=== PATIENT | female | born 1945 | race Caucasian/White ===

== ENCOUNTER → 2019-05-28 11:38 | Outpatient (BNVA) | payer MEDICARE, OTHER, SELFPAY | PROVIDERS: Family Provider Nurse Practitioner; PCP Nurse Practitioner; Visit Provider Nurse Practitioner Family | DX: M10.9 Gout, unspecified (principal) | CPT/HCPCS: 80053; 84550; 85025 ==

== ENCOUNTER 2019-06-23 07:54 | Outpatient (CLI) | payer MEDICARE, OTHER, SELFPAY ==
--- NOTE | 2019-06-23 08:00 | CT_ITS ---
WS: [id number] CT NECK TECHNIQUE: Contrast-enhanced CT of the neck with coronal and sagittal reformatted images. CLINICAL INFORMATION: OTALGIA R EAR/ATYPICAL FACE PAIN DLP: 584.[address] scans at [facility] use at least one of these dose optimization techniques: automat ed exposure control; mA and/or kV adjustment per patient size (includes targeted exams where dose is matched to clinical indication); or iterative reconstruction. FINDINGS: Parotid glands are normal in appearance. Normal submandibular glands. Fatty lesion right submandibula r gland and likely a small lipoma measuring 5 mm. Normal posterior nasopharynx. Normal parapharyngeal fat. Normal vallecula and piriform sinuses. No evidence of supraglottic or glottic mass. Normal visu alized thyroid gland. No cervical lymphadenopathy.Moderate spondylitic changes cervical spine with prior laminectomy defect s C6-7. Partially visualized venous angioma right parietal lobe. Mastoid air cells and paranasal sinu ses are well aerated. CT/CT neck w con* [id number] IMPRESSION: 1. No evidence of supraglottic or glottic mass. 2. Paranasal sinuses and mastoid air cells are well aerated. 3. No cervical lymphadenopathy. 4. Mild spondylitic changes cervical spine with prior laminectomy defects C6/7 . 5. Incidental venous angioma right parietal lobe.
[2019-06-23] MEDS: iohexol 300 mg/mL 100 mL Btl IV (08:35)
== END 2019-06-23 07:55 | disposition home or self-care (01) ==
PROVIDERS: Family Provider Nurse Practitioner; PCP Nurse Practitioner; Visit Provider Otolaryngology
DX: H92.01 Otalgia, right ear (principal); G50.1 Atypical facial pain; Q28.3 Other malformations of cerebral vessels
CPT/HCPCS: 70491

== ENCOUNTER → 2019-07-03 10:31 | Outpatient (BNVA) | payer MEDICARE, OTHER, SELFPAY | PROVIDERS: Family Provider Nurse Practitioner; PCP Nurse Practitioner; Visit Provider Nurse Practitioner | DX: M10.9 Gout, unspecified (principal); E03.8 Other specified hypothyroidism; E06.3 Autoimmune thyroiditis; I67.9 Cerebrovascular disease, unspecified; R26.89 Other abnormalities of gait and mobility; R82.998 Other abnormal findings in urine | CPT/HCPCS: 80053; 81003; 82607; 84443; 84550; 85025; 87077; 87086; 87186 ==

== ENCOUNTER → 2019-07-09 10:00 | Outpatient (BNVA) | payer MEDICARE, OTHER, SELFPAY | PROVIDERS: Family Provider Nurse Practitioner; PCP Nurse Practitioner; Referring Provider Nurse Practitioner; Visit Provider Specialist | DX: G50.1 Atypical facial pain (principal); R20.0 Anesthesia of skin; F40.240 Claustrophobia | CPT/HCPCS: 82607; 85651; 86140; 99204; 99214 ==

== ENCOUNTER 2019-07-09 11:47 | Outpatient (CLI) | payer MEDICARE, OTHER, SELFPAY ==
[2019-07-09 12:49] LABS: Erythrocyte Sedimentation Rate 12 mm/hr (0-15)
[2019-07-09 13:47] LABS: Vitamin B12 > 2000 pg/mL (232-1245)
[2019-07-09 13:58] LABS: C Reactive Protein 0.8 mg/L (0.0-4.9)
== END 2019-07-09 11:48 | disposition home or self-care (01) ==
LOC: LAB 11:47
PROVIDERS: Family Provider Nurse Practitioner; PCP Nurse Practitioner; Visit Provider Specialist
DX: R20.0 Anesthesia of skin (principal)
CPT/HCPCS: 82607; 85651; 86140

== ENCOUNTER → 2019-07-17 09:50 | Outpatient (BNVA) | payer MEDICARE, OTHER, SELFPAY | PROVIDERS: Family Provider Nurse Practitioner; PCP Nurse Practitioner; Visit Provider Nurse Practitioner | DX: R39.9 Unspecified symptoms and signs involving the genitourinary system (principal) | CPT/HCPCS: 81003 ==

== ENCOUNTER 2019-07-18 09:24 | Outpatient (CLI) | payer MEDICARE, OTHER, SELFPAY ==
--- NOTE | 2019-07-18 10:15 | CT_ITS ---
WS: [id number] CT NECK WITHOUT CONTRAST HISTORY: mass in neck TECHNIQUE: Contiguous 5 mm axial images are performed through the neck without intravenous contrast. Sagittal and coronal reformats are also submitted. All CT scans at [facility] use at leas t one of these dose optimization techniques: automated exposure control; mA and/or kV adjustment per patient size (includes targeted exams where dose is matched to clinical indication); or iterative rec onstruction. CONTRAST: CONTRAST: None DLP: 1719.51 mGycm COMPARISON: 06/23/2019 Nasopharynx, oropharynx, hypopharynx and larynx are unremarkable. No soft tissue mass identified. Torus tubarius and fossa of Rosenmuller and parapharyngeal fat are normal. No significant lymphadenopathy is identified. Normal unenhanced appearance of the thyroid. Thyroid gland is small caliber. Again noted is the hypoe choic dense lesion measuring 5 mm in the RIGHT submandibular gland. No parotid lesions are identified . Degenerative disc disease and spondylitic changes in the mid cervical spine. No osteoblastic or osteo lytic bone disease. Visualized portions of the skull base demonstrate no abnormalities. Orbits and globes are within norm al limits. No soft tissue masses. Visualized paranasal sinuses and mastoid air cells are normal. Lung apices are clear. CT/CT neck wo con [id number] IMPRESSION: 1. This examination was performed without IV contrast. This limits evaluation for subtle lesions. No laryngeal mass identified. 2. Stable 5 mm hypodense lesion in the RIGHT submandibular gland which may be a benign lipoma. Described on 06/23/2019 also. 3. No adenopathy.
--- NOTE | 2019-07-18 11:45 | MR_ITS ---
WS: [id number] MRI HEAD WITHOUT CONTRAST WITH ATTENTION TO THE INTERNAL AUDITORY CANALS TECHNIQUE: Sagittal T1, T2 axial, T2 axial flair, axial susceptibility weighted imaging, axial diffus ion weighted images, and coronal T2 images were obtained. Pre and T1 axial T1 coronal images. ADC donna ges. Coronal fiesta imaging. Attention to the IACs. CLINICAL INFORMATION: ear pain COMPARISON: MRI August 25, 2016 FINDINGS: No evidence of restricted diffusion to suggest acute ischemia. Ventricular system and basal cisterns are patent. Mild small vessel changes with moderate parenchymal volume loss relatively stable since 2 017. Small vessel changes in the abdulaziz. Normal posterior fossa. Normal vascular flow voids at the skul l base. No extra-axial fluid collections. No evidence of mass or mass effect. Paranasal sinuses and mastoid air cells well aerated. No hemosiderin on the susceptibility weighted i mages. Noncontrast IACs are normal in appearance. No evidence of IAC mass or CP angle mass. Seventh a nd eighth proximal cranial nerves appear normal. Normal trigeminal nerve root entry zones. Cavernous sinuses appear normal. Normal optic chiasm and pituitary infundibulum. Moderate symmetric atrophy involving the temporal lob es and hippocampal formations. No other significant findings. MR/MR iac's wo con [id number] IMPRESSION: 1. No evidence of restricted diffusion to suggest acute ischemia. 2. Mild small vessel changes with moderate parenchymal volume loss appears sta ble since 2016 3. Moderate symmetric atrophy involving the temporal lobes and hippocampal for mations. 4. Noncontrast IACs appear normal. Proximal 7th and 8th cranial nerves appear normal. 5. Trigeminal nerve root entry zones appear unremarkable. 6. Paranasal sinuses and mastoid air cells appear well aerated. 7. No significant interval changes since 2016.
== END 2019-07-18 09:25 | disposition home or self-care (01) ==
LOC: RADWPI 09:29
PROVIDERS: Family Provider Nurse Practitioner; PCP Nurse Practitioner; Visit Provider Specialist
DX: G31.89 Other specified degenerative diseases of nervous system (principal); R22.1 Localized swelling, mass and lump, neck; R51 Headache; H92.09 Otalgia, unspecified ear
CPT/HCPCS: 70490; 70551

== ENCOUNTER → 2019-10-08 10:48 | Outpatient (BNVA) | payer MEDICARE, OTHER, SELFPAY | PROVIDERS: Family Provider Nurse Practitioner; PCP Nurse Practitioner; Visit Provider Specialist | DX: G50.1 Atypical facial pain (principal); R26.89 Other abnormalities of gait and mobility; G43.019 Migraine without aura, intractable, without status migrainosus | CPT/HCPCS: 99214 ==

== ENCOUNTER → 2019-11-26 16:46 | Outpatient (BNVA) | payer MEDICARE, OTHER, SELFPAY | PROVIDERS: Family Provider Nurse Practitioner; PCP Nurse Practitioner; Visit Provider Nurse Practitioner | DX: E03.8 Other specified hypothyroidism (principal); E06.3 Autoimmune thyroiditis | CPT/HCPCS: 80053; 80061; 82607; 84439; 84443; 84481 ==

== ENCOUNTER → 2020-01-07 09:49 | Outpatient (BNVA) | payer MEDICARE, OTHER, SELFPAY | PROVIDERS: Family Provider Nurse Practitioner; PCP Nurse Practitioner; Visit Provider Specialist | DX: G43.019 Migraine without aura, intractable, without status migrainosus (principal); G50.1 Atypical facial pain | CPT/HCPCS: 99213 ==

== ENCOUNTER → 2020-01-20 10:32 | Outpatient (BNVA) | payer MEDICARE, OTHER, SELFPAY | PROVIDERS: Family Provider Nurse Practitioner; PCP Nurse Practitioner; Visit Provider Nurse Practitioner | DX: I10 Essential (primary) hypertension (principal); E78.2 Mixed hyperlipidemia; Z68.24 Body mass index [BMI] 24.0-24.9, adult | CPT/HCPCS: 81000 ==

== ENCOUNTER 2020-02-24 09:57 | Outpatient (CLI) | payer MEDICARE, OTHER, SELFPAY ==
--- NOTE | 2020-02-24 10:12 | CT_ITS ---
WS: [id number] CT NECK TECHNIQUE: Contrast-enhanced CT of the neck with coronal and sagittal reformatted images. CLINICAL INFORMATION: LOCALIZED SWELLING, MASS AND LUMP, NECK COMPARISON: CT July 18, 2019 DLP: 1582.[address] scans at [facility] use at least one of these dose optimization techniques: automat ed exposure control; mA and/or kV adjustment per patient size (includes targeted exams where dose is matched to clinical indication); or iterative reconstruction. FINDINGS: Palpable marker overlying the right mandible laterally. No evidence of underlying mass or lesion. Nor mal underlying mandible. Beam Cesar artifact from dental hardware degrades images. No abnormalities in this area. Tongue base appears normal considering dental artifact. Normal posterior nasopharynx. Normal palatine tonsils. Submandibular glands are normal. Small 5 mm low-attenuation lesion right submandibular glan d unchanged likely represents a small lipoma. Left submandibular gland is normal. Normal parotid glands. Normal parapharyngeal fat. No evidence of supraglottic or glottic mass. Normal subglottic airway. Paranasal sinuses and mastoid air cells are well aerated. Incidental venous angio ma right parietal occipital junction unchanged. No cervical lymphadenopathy. Moderate spondylitic changes cervical spine worse at C5-C6 due to disc o steophyte complex. Laminectomy defects C6-7. Lung apices are well aerated. CT/CT neck w con* [id number] IMPRESSION: 1. Palpable marker overlying the right mandible. No evidence of underlying sub cutaneous mass or lesion. 2. 5 mm low-attenuation lesion right submandibular gland likely lipoma unchan ged. 3. Salivary glands are otherwise normal.. 4. No cervical lymphadenopathy. 5. Moderate spondylitic changes cervical spine. 6. Stable venous angioma right parietal lobe.
[2020-02-24 11:04] LABS: Blood Urea Nitrogen 17 mg/dL (8-23)
[2020-02-24] MEDS: iohexol 300 mg/mL 100 mL Btl IV (11:11)
== END 2020-02-24 09:58 | disposition home or self-care (01) ==
PROVIDERS: Family Provider Nurse Practitioner; PCP Nurse Practitioner; Visit Provider Specialist
DX: R22.1 Localized swelling, mass and lump, neck (principal); D18.09 Hemangioma of other sites
CPT/HCPCS: 70491; 82565; 84520; Q9967

== ENCOUNTER 2020-03-17 12:36 | Outpatient (CLI) | payer MEDICARE, OTHER, SELFPAY ==
--- NOTE | 2020-03-17 12:47 | MR_ITS ---
WS: [id number] MRI NECK WITH CONTRAST TECHNIQUE: Noncontrast axial T1, axial T2 FSE fat sat, coronal T2 fat sat, coronal T1, coronal T1 fat sat, sagittal T2 fat sat, plus contrast enhanced coronal, sagittal, and axial T1 fat sat images obta ined. CLINICAL INFORMATION: ATYPICAL FACIAL PAIN COMPARISON: Comparison CT neck 02/24 2020 FINDINGS: Parotid glands are normal in appearance. Normal submandibular glands. 5 mm low-attenuation lesion in the right submandibular gland seen on the recent neck CT demonstrates normal parenchymal signal today . No enhancement. This likely represents incidental submandibular cyst or ductal ectasia. No cervical lymphadenopathy. No evidence of supraglottic or glottic mass. Normal vallecula and pirif orm sinuses. Subglottic airway is patent. No cervical lymphadenopathy. Normal posterior nasopharynx. Normal parapharyngeal fat. Posterior fossae is normal. Normal vascular flow voids at the skull base. Mastoid air cells are well aerated. Paranasal sinuses are well aerated. Mild spondylitic changes cervical spine. Spinal canal appears patent. MR/MR orbit face neck wo/w* [id number] IMPRESSION: 1. Salivary glands are normal. 2. No evidence of supraglottic or glottic mass. 3. No cervical lymphadenopathy. 4. Paranasal sinuses and mastoid air cells are well aerated. 5. No other significant findings.
== END 2020-03-17 12:37 | disposition home or self-care (01) ==
LOC: RADSHAW 12:42
PROVIDERS: PCP Nurse Practitioner; Visit Provider Specialist
DX: G50.1 Atypical facial pain (principal)
CPT/HCPCS: 70543; A9579

== ENCOUNTER → 2020-03-22 07:49 | Outpatient (BNVA) | payer MEDICARE, OTHER, SELFPAY | PROVIDERS: PCP Nurse Practitioner; Visit Provider Specialist | DX: R29.90 Unspecified symptoms and signs involving the nervous system (principal); G50.1 Atypical facial pain; G43.019 Migraine without aura, intractable, without status migrainosus; I67.9 Cerebrovascular disease, unspecified; G31.84 Mild cognitive impairment of uncertain or unknown etiology; I10 Essential (primary) hypertension | CPT/HCPCS: 99213 ==

== ENCOUNTER → 2020-04-28 09:46 | Outpatient (BNVA) | payer MEDICARE, OTHER, SELFPAY | PROVIDERS: PCP Nurse Practitioner; Visit Provider Podiatrist Foot & Ankle Surgery | DX: M79.673 Pain in unspecified foot (principal); M21.072 Valgus deformity, not elsewhere classified, left ankle | CPT/HCPCS: 73630 ==

== ENCOUNTER → 2020-05-04 15:45 | Outpatient (BNVA) | payer MEDICARE, OTHER, SELFPAY | PROVIDERS: PCP Nurse Practitioner; Visit Provider Nurse Practitioner | DX: E78.2 Mixed hyperlipidemia (principal); E06.3 Autoimmune thyroiditis; M19.90 Unspecified osteoarthritis, unspecified site; I10 Essential (primary) hypertension | CPT/HCPCS: 80053; 80061; 84443 ==

== ENCOUNTER → 2020-07-13 11:09 | Outpatient (BNVA) | payer MEDICARE, OTHER, SELFPAY | PROVIDERS: PCP Nurse Practitioner; Visit Provider Nurse Practitioner | DX: E03.8 Other specified hypothyroidism (principal); E06.3 Autoimmune thyroiditis | CPT/HCPCS: 80053; 84443; 85025 ==

== ENCOUNTER → 2020-09-20 10:50 | Outpatient (BNVA) | payer MEDICARE, OTHER, SELFPAY | PROVIDERS: PCP Nurse Practitioner; Visit Provider Nurse Practitioner | DX: E03.8 Other specified hypothyroidism (principal); E06.3 Autoimmune thyroiditis | CPT/HCPCS: 84443 ==

== ENCOUNTER → 2020-10-14 10:51 | Outpatient (BNVA) | payer MEDICARE, OTHER, SELFPAY | PROVIDERS: PCP Nurse Practitioner; Visit Provider Nurse Practitioner | DX: E55.9 Vitamin D deficiency, unspecified (principal); E06.3 Autoimmune thyroiditis; I10 Essential (primary) hypertension | CPT/HCPCS: 82306; 82607; 84443; 85025 ==

== ENCOUNTER → 2020-12-14 10:26 | Outpatient (BNVA) | payer MEDICARE, OTHER, SELFPAY | PROVIDERS: PCP Nurse Practitioner; Visit Provider Nurse Practitioner | DX: E03.8 Other specified hypothyroidism (principal); E06.3 Autoimmune thyroiditis | CPT/HCPCS: 80053; 84443 ==

== ENCOUNTER → 2021-01-19 09:06 | Outpatient (BNVA) | payer MEDICARE, OTHER, SELFPAY | PROVIDERS: PCP Nurse Practitioner; Visit Provider Nurse Practitioner | DX: E78.2 Mixed hyperlipidemia (principal); M54.5 Low back pain; M54.6 Pain in thoracic spine | CPT/HCPCS: 72072; 72100 ==

== ENCOUNTER 2021-01-27 09:40 | Outpatient (CLI) | payer MEDICARE, OTHER, SELFPAY ==
--- NOTE | 2021-01-27 10:00 | CT_ITS ---
WS: [id number] CT LUMBAR SPINE TECHNIQUE: Noncontrast CT of the lumbar spine with coronal and sagittal reformatted images. CLINICAL INFORMATION: S32.000A - Wedge compression fracture of unspecified lumb... COMPARISON: MRI and radiograph January 19, 2021 DLP: 2000.[address] scans at [facility] use at least one of these dose optimization techniques: automated e xposure control; mA and/or kV adjustment per patient size (includes targeted exams where dose is matc hed to clinical indication); or iterative reconstruction. FINDINGS: Mild lumbar curve. Mild compression superior endplate L3 with visualized fracture clefts consistent w ith acute compression unchanged since the recent radiograph. Loss of approximately 20% vertebral body height. No retropulsion. Lumbar curve convex left. No high-grade central canal stenosis. L1-L2: Normal L2-L3: Mild annular bulging with slight effacement of ventral thecal sac. Slight narrowing of the sub articular recess. Spinal canal and foramen are patent. Mild facet arthropathy L3-L4: Mild annular bulging with slight effacement of the ventral thecal sac. Moderate facet arthropa thy. Spinal canal and foramen are patent. L4-L5: Annular bulging with a shallow central protrusion. Moderate central canal stenosis and imping ement traversing L5 nerve roots. Foramen are patent. Moderate facet arthropathy with ligamentum flavu m hypertrophy. L5-S1: Mild annular bulging with a tiny shallow central protrusion. Slight effacement of ventral thec al sac. Foramen are patent. Moderate to advanced facet arthropathy. 7 mm left adrenal adenoma. CT/CT lumbar spine wo con* [id number] IMPRESSION: 1. Acute compression superior endplate L3 with loss of approximately 20% verte bral body height. No significant retropulsion. 2. Moderate central canal stenosis L4-5 due to disc bulging with facet arthrop athy and ligamentum flavum flavum hypertrophy. Impingement traversing L5 nerve roots bilaterally. 3. Tiny shallow central protrusion L5-S1 with slight effacement of ventral the lucille sac. 4. Moderate to advanced facet arthropathy L3-L5.
== END 2021-01-27 09:41 | disposition home or self-care (01) ==
PROVIDERS: PCP Nurse Practitioner; Visit Provider Nurse Practitioner
DX: S32.039A Unspecified fracture of third lumbar vertebra, initial encounter for closed fracture (principal); X58.XXXA Exposure to other specified factors, initial encounter; M48.061 Spinal stenosis, lumbar region without neurogenic claudication; M51.27 Other intervertebral disc displacement, lumbosacral region; M47.816 Spondylosis without myelopathy or radiculopathy, lumbar region
CPT/HCPCS: 72131

== ENCOUNTER → 2021-02-03 13:34 | Outpatient (BNVA) | payer MEDICARE, OTHER, SELFPAY | PROVIDERS: PCP Nurse Practitioner; Referring Provider Nurse Practitioner; Visit Provider Orthopaedic Surgery | DX: M25.552 Pain in left hip (principal); M25.551 Pain in right hip | CPT/HCPCS: 73502 ==

== ENCOUNTER → 2021-02-09 10:05 | Outpatient (BNVA) | payer MEDICARE, OTHER, SELFPAY | PROVIDERS: PCP Nurse Practitioner; Visit Provider Nurse Practitioner | DX: E03.8 Other specified hypothyroidism (principal); E06.3 Autoimmune thyroiditis | CPT/HCPCS: 80053; 80061; 84443 ==

== ENCOUNTER 2021-02-18 08:10 | Outpatient (CLI) | payer MEDICARE, OTHER, SELFPAY ==
--- NOTE | 2021-02-18 08:45 | MR_ITS ---
WS: [id number] MRI LUMBAR SPINE NONCONTRAST TECHNIQUE: Sagittal T1, T2 and STIR imaging. Axial T1 and T2 imaging. CLINICAL INFORMATION: S32.030A - Wedge compression fracture of third lumbar matteo... COMPARISON: January 27, 2021 FINDINGS: Mild lumbar curve. Acute compression fracture superior endplate L3 with loss of 20% vertebral body he ight. No retropulsion. Diffuse edema in the superior endplate consistent with acute compression. No c entral canal stenosis. L1-L2: Normal. L2-L3: Mild annular bulging with slight effacement of the ventral thecal sac. Slight narrowing of the right subarticular recess. Mild facet arthropathy. Mild left foraminal narrowing. L3-L4: No significant disc bulging. Mild osteophytic ridging. Mild left foraminal narrowing. Compress ion of the superior endplate described above. Moderate facet arthropathy. L4-L5: Mild disc bulging with slight effacement of ventral thecal sac. Mild central canal stenosis wi th slight narrowing of the subarticular recess bilaterally. Moderate facet arthropathy. Ligamentum fl avum flavum hypertrophy. Mild right foraminal narrowing. L5-S1: Mild annular bulging. Spinal canal and foramen are patent. Moderate facet arthropathy. Foramen are patent. Visualized pelvic bony structures: Normal. Paravertebral soft tissues: Normal. Central disc protrusion in the cervical spinal used car salesperson imaging at C5-C6 with mild central canal stenosi s. This can be followed up with cervical spine MRI. MR/MR lumbar spine wo con* [id number] IMPRESSION: 1. Acute compression superior endplate L3 with loss of approximately 20% verte bral body height. Diffuse edema. No significant retropulsion. This is unchanged since the prior CT. 2. Mild central canal stenosis L4-5 with mild annular bulging with slight impi ngement on traversing L5 nerve roots bilaterally. Mild right L4-5 foraminal atif rowing. 3. Mild left L2-3 foraminal narrowing. 4. Moderate facet arthropathy L3-L5. 5. Central disc protrusion in the cervical spinal used car salesperson imaging at C5-C6 with mild central canal stenosis. This can be followed up with cervical spine MRI.
== END 2021-02-18 08:11 | disposition home or self-care (01) ==
LOC: RADSHAW 08:13
PROVIDERS: PCP Nurse Practitioner; Visit Provider Orthopaedic Surgery
DX: S32.030A Wedge compression fracture of third lumbar vertebra, initial encounter for closed fracture (principal); X58.XXXA Exposure to other specified factors, initial encounter; M48.061 Spinal stenosis, lumbar region without neurogenic claudication; Z20.822 Contact with and (suspected) exposure to COVID-19; M47.816 Spondylosis without myelopathy or radiculopathy, lumbar region; M50.222 Other cervical disc displacement at C5-C6 level
CPT/HCPCS: 72148; 87635

== ENCOUNTER 2021-02-21 05:50 | Day surgery (SDC) | payer MEDICARE, OTHER, SELFPAY ==
[2021-02-17 12:29] VITALS: BMI 22.1
--- NOTE | 2021-02-17 13:08 | ANES.PREANE2 ---
Pre-Anesthetic Assessment Pre-Anesthetic Assessment: Height/Weight: Height 1.6 m Weight 56.699 kg Proposed Procedure: Operation Date: 02/21/21 08:40 Proposed Procedures p Kyphoplasty L3 88699 S32.030A(Not Applicable) - Henrique Kellogg, DO Was Beta Andreina taken within 24 hours: N/A Was Clonidine taken within 24 hours: N/A Social: Social History: No alcohol and No tobacco Exam: Pre-Anes Outpt Exam: alert, oriented x 3, clear to auscultation bilaterally and regular rate & rhythm Airway: Submandibular: WNL Cervical ROM: WNL MP: 2 Dentition: Full CV/HEM: CV/HEM: HTN and PVD Metabolic: Metabolic: Hyperlipidemia and Thyroid Musc/skel: Musc/skel: Lower Back Pain and OA/DJD Neuropsych: Neuropsych: SHEPHERD Anesthetic Plan: ASA status: 3 Anesthesia: General Other: H/O delayed awakening, PONV with opioid Risk of > 500 ml blood loss (7ml/kg in children): No PFSH Anesthesia PFSH: Medical History Altered gait Dry eye syndrome, bilateral Enrolled in chronic care management Environmental and seasonal allergies Essential hypertension Gout Hx of migraine headaches 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 Osteopenia Small vessel disease, cerebrovascular Surgical History History of arthroscopic knee surgery Left knee History of cervical spinal surgery History of hand surgery Left 4th metacarpal fracture History of hysterectomy with oophorectomy Status post left foot surgery after fracture Status post surgical removal of acromioclavicular joint 2019 Family History Mother Stroke Hypothyroidism Hypertension Father Heart disease Sister Cancer Lung and breast Other CAD (coronary artery disease) Diabetes Social History Smoking and tobacco status: never smoked Second hand smoke exposure: No Smoking risk assessment/counseling performed?: No Alcohol intake: never Desire information about alcohol rehabilitation?: No Counseling given: No Desire information about substance/drug rehabilitation?: No Counseling given: No Caregiver/support person: No Lives independently: Yes Household members: significant other Housing: House Marital status: service: No Current occupational status: unemployed History of recent travel: No Current gender identity: Female Data Anesthesia Cardiac Studies: No Data to Display
--- NOTE | 2021-02-21 | SCC_ITS ---
Procedure Done: 1. L3 Kyphoplasty 115.1 seconds of fluoroscopic guidance, for a cumulative dose of 46.4 mGy, was provided to Dr. Kellogg by the radiology department. C-arm images of the lumbar spine were saved for the patient's permanent record. [facility]
--- NOTE | 2021-02-21 05:58 | SC_ITS ---
WS: [id number] C-arm FL for Kyphoplasty REASON FOR EXAM: surgery FINDINGS: AP and lateral images of the lumbar spine in surgery. Barium impregnated methylmethacrylate seen within the mid and lower L3 vertebral body on both sides o f midline. No extravasation. SC/C-arm FL for Kyphoplasty IMPRESSION: Postprocedural spine as above.
[2021-02-21 06:07] VITALS: BP 166/94; PULSE 74; RESP 18; TEMP 36.1; O2SAT 96
[2021-02-21] MEDS: sodium chloride 0.9% 1,000 ML 30 ML IV (06:30)
--- NOTE | 2021-02-21 06:43 | W.PM.OPSUD ---
Surgery/Procedure H&P Update DATE OF PROCEDURE: February 21, 2021 DATE H&P PERFORMED: 02/03/21 H&P UPDATE INFORMATION: I have reviewed H&P completed within last 30 days, I have examined patient prior to procedure and No changes to prior documentation PREOP DIAGNOSIS: L3 compression fracture; lumbar stenosis with neurogenic claudication PLANNED PROCEDURE: Operation Date: 02/21/21 07:00 Proposed Procedures p Kyphoplasty L3 70633 S32.030A(Not Applicable) - Henrique Kellogg DO
--- NOTE | 2021-02-21 06:45 | P.ANESUD_ITS ---
Pre-Anesthetic Update Pre-Anesthetic Assessment: Date of Surgery/Procedure: 02/21/21 Preop Megan gnosis: L3 compression fracture; lumbar stenosis with neurogenic claudication Proposed Procedure: Operation Date: 02/21/21 07:00 Proposed Procedures p Kyphoplasty L3 75811 S32.030A(Not Applicable) - Henrique Kellogg, DO Any changes to Pre-Anesthetic Assessment?: No Last Intake: Intake Last Liquid Date 02/20/21 Last Liquid Time 20:00 Last Solid Date 02/20/21 Last Solid Time 20:00 Vitals: Temperature 97.0 F L 02/21/21 06:07 Temperature Source Temporal Artery S can 02/21/21 06:07 Pulse Rate 74 02/21/21 06:07 Respiratory Rate 18 02/21/21 06:07 Blood Pressure 166/94 02/21/21 06:07 Blood Pressure Gwendolyn n 118 02/21/21 06:07 Pulse Oximetry 96 02/21/21 06:07 Oxygen Delivery Me thod 02/21/21 06:07 Exam: Pre-Anes Outpt Exam: alert, oriented x 3, clear to auscultation bilaterally and regular rate & rhythm Cardiac Studies: No Data to Display
[2021-02-21 07:56] VITALS: BP 169/60; PULSE 90; RESP 16; TEMP 36.1; O2SAT 100
[2021-02-21 08:00] VITALS: BP 160/78; PULSE 87; RESP 19; O2SAT 100
--- NOTE | 2021-02-21 08:01 | PM.OP ---
Operative Report Date of procedure: February 21, 2021 Pre-op Diagnosis: L3 compression fracture Post-op diagnosis: same Procedure Done: 1. L3 Kyphoplasty Surgeon: Henrique Kellogg Anesthesia: General Condition: stable Disposition: PACU Procedure: 1. L3 Kyphoplasty Patient was brought to the operative suite after undergoing anesthesia was placed prone on the operative table. All areas impingement well-padded. Patient was then prepped and draped in normal sterile fashion. Skin incision is made over the L3 pedicle. On AP and lateral fluoroscopy. The starting awl was inserted followed by using the drill. Drill was removed balloon was inserted balloon was blown up. And then the void was filled with cement. This process was done on both the right and the left pedicle. AP lateral fluoroscopy after the tubes were pulled and sure that the cement was in preposition there was no tracking back of the cement. Wounds irrigated and closed with nylon suture. Sterile dressings applied patient transferred to the PACU in stable addition.
--- NOTE | 2021-02-21 08:01 | SUR.PHASEI ---
PT AWAKES TO VOICE , PT DENIES PAIN AND NAUSEA, TEMP 97 WARM BLANKETS TO PT, PT WITH GOOD RESP EFFORT, PLACED ON RA TRIAL.
[2021-02-21 08:05] VITALS: BP 157/80; PULSE 89; RESP 20; O2SAT 98
[2021-02-21 08:10] VITALS: BP 157/80; PULSE 87; RESP 20; TEMP 36.3; O2SAT 96
[2021-02-21 08:25] VITALS: BP 165/85; PULSE 86; RESP 18; TEMP 36.3; O2SAT 98
[2021-02-21] MEDS: HYDROcodone-acetaminophen 5-325 mg Tablet 1 TAB PO (09:30)
--- NOTE | 2021-02-21 15:00 | ANE.PACU2 ---
Inpatient post-anesthesia follow up: Airway intact: Yes Vital signs: Temperature 97.4 F Pulse Rate 86 Respiratory Rate 18 Blood Pressure 165/85 Pulse Oximetry 98 Oxygen Delivery Me thod Room Air Oxygen Flow Rate 6 Fraction of Inspir ed Oxygen Hydration adequate: Yes Nausea and vomiting: No Pain level: 2 Mental status: Baseline
== END 2021-02-21 09:20 | disposition home or self-care (01) ==
PROVIDERS: PCP Nurse Practitioner; Visit Provider Orthopaedic Surgery
PROC: (CPT 22514; principal; 2021-02-21 07:00)
DX: S32.030A Wedge compression fracture of third lumbar vertebra, initial encounter for closed fracture (principal); X58.XXXA Exposure to other specified factors, initial encounter; M48.062 Spinal stenosis, lumbar region with neurogenic claudication; I10 Essential (primary) hypertension; E03.9 Hypothyroidism, unspecified; Z82.49 Family history of ischemic heart disease and other diseases of the circulatory system; Z83.3 Family history of diabetes mellitus
CPT/HCPCS: 22514; 76000; 96365; J0690; J1100; J2405; J2704; J2710; J3010; J3490; J7030

== ENCOUNTER 2021-03-11 13:27 | Outpatient (CLI) | payer MEDICARE, OTHER, SELFPAY ==
--- NOTE | 2021-03-11 14:15 | XR_ITS ---
WS: [id number] Exam: XR DEXA axial skeleton* [id number] Date/Time of Exam: 03/11/2021 1:40 PM Reason For Exam: S32.030A - Wedge compression fracture of third lumbar matteo... DEXA BONE DENSITOMETRY [employer] The L1-L4 bone mineral density measures 0.917 g/sq cm. This corresponds to a T score of -2.1 and Z sc ore of -0.2. Left femoral neck bone mineral density measures 0.681 g/cm2. This corresponds to T score of -2.6 and Z score of -0.6. Right femoral neck bone mineral density measures 0.799 g/cm2. This corresponds to a T score of -1.7 a nd Z score of 0.3. Mean femoral neck bone mineral density measures 0.740 g/cm2. This corresponds to a T score of -2.1 an d Z score of -0.2 XR/XR DEXA axial skeleton* [id number] IMPRESSION: Bone mineral density lies in the osteoporotic range. Refer to detailed summary .
== END 2021-03-11 13:28 | disposition home or self-care (01) ==
PROVIDERS: PCP Nurse Practitioner; Visit Provider Nurse Practitioner
DX: S32.030A Wedge compression fracture of third lumbar vertebra, initial encounter for closed fracture (principal); X58.XXXA Exposure to other specified factors, initial encounter
CPT/HCPCS: 77080

== ENCOUNTER → 2021-04-05 10:38 | Outpatient (BNVA) | payer MEDICARE, OTHER, SELFPAY | PROVIDERS: PCP Nurse Practitioner; Visit Provider Nurse Practitioner | DX: E03.8 Other specified hypothyroidism (principal); E06.3 Autoimmune thyroiditis; I10 Essential (primary) hypertension; E55.9 Vitamin D deficiency, unspecified | CPT/HCPCS: 80053; 81000; 82306; 82607; 84443; 85025 ==

== ENCOUNTER → 2021-06-23 10:58 | Outpatient (BNVA) | payer MEDICARE, OTHER, SELFPAY | PROVIDERS: PCP Nurse Practitioner; Visit Provider Nurse Practitioner | DX: E03.8 Other specified hypothyroidism (principal); E06.3 Autoimmune thyroiditis; J34.89 Other specified disorders of nose and nasal sinuses; M79.671 Pain in right foot | CPT/HCPCS: 73630; 84443 ==

== ENCOUNTER 2021-07-21 20:38 | Inpatient (IN) | payer MEDICARE, OTHER, SELFPAY ==
[2021-07-21 20:45] VITALS: BP 210/121; PULSE 89; RESP 18; TEMP 36.6; O2SAT 98; BMI 26.2
--- NOTE | 2021-07-21 20:45 | XRR_ITS ---
PROCEDURE INFORMATION: Exam: XR Left Hip Exam date and time: 07/21/2021 8:45 PM Age: 76 years old Clinical indication: Hip pain; Left hip; Additional info: Fall TECHNIQUE: Imaging protocol: XR Left hip. Views: 2 or 3 views hip with pelvis when performed. COMPARISON: CT abdomen pelvis w con* [id number] 04/05/2016 2:22 PM FINDINGS: Bones/joints: Unremarkable. No acute fracture. Soft tissues: Unremarkable. XR/XR hip LT 2-3V wo/w pel* [id number] IMPRESSION: No acute findings.
--- NOTE | 2021-07-21 20:45 | W.ED.FALL ---
HPI - Fall General: Chief Complaint: Fall Stated Complaint: fall Time Seen by Provider: 07/21/21 20:39 Source: patient and EMS Mode of arrival: EMS Limitations: no limitations History of Present Illness: 76-year-old female states that she tripped and fell on her porch roughly an hour ago. States she landed on her left side onto her left hip she has left hip pain she rates it 9 out of 10 was not able to ambulate after that. Denies any other injuries denies hitting her head denies any loss of consciousness. Associated symptoms-after fall: Denies abdominal pain, chest pain, headache(s) or neck pain Review of Systems Const: Denies: fever(s), chills, body aches or change in appetite Eyes: Denies: blurry vision or eye discomfort ENMT: Denies: throat pain or dental pain Card: Denies: chest pain Resp: Denies: dyspnea GI: Denies: abdominal pain, nausea, vomiting or diarrhea : Denies: dysuria Musc: Reports: extremity pain; Denies: neck pain or back pain Skin/Breast: Denies: rash Neuro: Denies: headache(s) Psych: Denies: depression Riki/Lymph: Denies: easy bruising All/Imm: Denies: urticaria PFSH ED PFSH: Medical History Altered gait Dry eye syndrome, bilateral Enrolled in chronic care management Environmental and seasonal allergies Essential hypertension Gout Hx of migraine headaches 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 Osteopenia Small vessel disease, cerebrovascular Surgical History History of arthroscopic knee surgery Left knee History of cervical spinal surgery History of hand surgery Left 4th metacarpal fracture History of hysterectomy with oophorectomy Status post left foot surgery after fracture Status post surgical removal of acromioclavicular joint 2019 Family History Mother Stroke Hypothyroidism Hypertension Father Heart disease Sister Cancer Lung and breast Other CAD (coronary artery disease) Diabetes Social History Smoking and tobacco status: former smoker Second hand smoke exposure: No Smoking risk assessment/counseling performed?: No Alcohol intake: never Desire information about alcohol rehabilitation?: No Counseling given: No Desire information about substance/drug rehabilitation?: No Counseling given: No Caregiver/support person: No Lives independently: Yes Household members: significant other Housing: House Marital status: service: No Current occupational status: unemployed History of recent travel: No Current gender identity: Female Physical Exam Const: COMMON NORMALS: no acute distress, patient oriented x3 and healthy appearing HENMT: COMMON NORMALS: normocephalic and atraumatic HEAD & SCALP: normocephalic and atraumatic Eye: COMMON NORMALS: Equal, round and reactive pupils present and EOMs intact bilaterally PUPIL: Yes Equal, round and reactive pupils present Neck/C-Spine: COMMON NORMALS: full ROM and supple Chest: COMMONS NORMALS: normal inspection of the chest and normal palpation of entire chest wall Resp: COMMON NORMALS: normal respiratory effort, No retractions, No use of accessory muscles and clear to auscultation bilaterally AUSCULTATION: clear to auscultation bilaterally Cardio: COMMON NORMALS: regular rate, regular rhythm and No murmurs present (Cardio) RATE: regular rate RHYTHM: regular rhythm GI: COMMON NORMALS: Normal to inspection, nondistended, normoactive bowel sounds present, Soft to palpation, non-tender and no masses PALPATION: Yes Soft to palpation Extremity: NARRATIVE EXTREMITY EXAM: Tenderness over left hip pain with any range of motion distal pulses and sensation intact Neuro: COMMON NORMALS: patient oriented x3, moves all extremities and no focal motor deficits Psych: COMMON NORMALS: mental status grossly normal, Normal thought process present and cooperative THOUGHT PROCESS: Normal thought process present Skin: COMMON NORMALS: no rashes or lesions noted and no wounds GENERAL SKIN EXAM: no rashes or lesions noted Course Vital Signs: Vital signs: Vital Signs Temperature 97.8 F 07/21/21 20:45 Pulse Rate 89 07/21/21 20:45 Respiratory Rate 18 07/21/21 20:45 Blood Pressure 210/121 07/21/21 20:45 Pulse Oximetry 98 07/21/21 20:45 MDM - Fall Medical Decision Making Patient presents here with a left hip fracture from a fall no other injuries noted spoke to hospitalist along with orthopedist and will admit at this time. Lab Data Radiology Impressions Hip/Pelvis X-Ray 07/21/21 20:45 IMPRESSION: No acute findings. ADDENDUM: 07/21/21 2201 This study is correlated to the left femur x-ray images on 07/21/2021. There is a suspected mildly displaced fracture through the base of the left femur greater trochanter. Femur X-Ray 07/21/21 21:25 IMPRESSION: 1. Suspected left greater trochanteric femur fracture. Hip CT 07/21/21 21:25 IMPRESSION: 1. Mildly displaced comminuted fracture through the base of the left femur greater trochanter. Discharge Plan Discharge Patient Disposition: Admitted As Inpatient Clinical Impression: Closed fracture of left hip Qualifiers: Encounter type: initial encounter Qualified Code(s): S72.002A - Fracture of unspecified part of neck of left femur, initial encounter for closed fracture Condition: Stable Coding Level of Care Code ED Ship'S Electronic Warfare Officer for Bharat Fwlyndsay Exam Comprehensive
[2021-07-21] MEDS: ondansetron 2 mg/ML SDV 2 mL 4 MG IVP (21:09)
[2021-07-21] MEDS: morphine 4 mg/mL SDV 1 mL IVP (21:09)
--- NOTE | 2021-07-21 21:25 | XRR_ITS ---
PROCEDURE INFORMATION: Exam: XR Left Femur Exam date and time: 07/21/2021 9:25 PM Age: 76 years old Clinical indication: Pain; Hip and thigh; Left; Additional info: Fall TECHNIQUE: Imaging protocol: XR Left femur. Views: 2 views. COMPARISON: CR (PELVIS, ) 07/21/2021 8:55 PM FINDINGS: Bones/joints: Findings suspicious for a mildly displaced fracture through the base of the left greater trochanter. The remainder of the left femur appears intact. Soft tissues: Unremarkable. Vasculature: Arterial calcifications. XR/XR femur LT min 2V* [id number] IMPRESSION: 1. Suspected left greater trochanteric femur fracture.
--- NOTE | 2021-07-21 21:25 | CTR_ITS ---
PROCEDURE INFORMATION: Exam: CT Left Lower Extremity Without Contrast, Hip Exam date and time: 07/21/2021 9:25 PM Age: 76 years old Clinical indication: Injury or trauma; Fall; Blunt trauma; Patient HX: Patient fell at home landing onto left hip. C/O pain and and unable to bear weight. TECHNIQUE: Imaging protocol: CT of the Left lower extremity without contrast was performed. Exam focused on the hip. Radiation optimization: All CT scans at this facility use at least one of these dose optimization techniques: automated exposure control; mA and/or kV adjustment per patient size (includes targeted exams where dose is matched to clinical indication); or iterative reconstruction. COMPARISON: CR (PELVIS, ) 07/21/2021 8:55 PM RADIATION DOSE METRICS: Total DLP (mGy-cm): 1028.87 FINDINGS: Bones/joints: Calcified region of probable chronic fat necrosis in the right pelvis. Mildly displaced and comminuted fracture through the base of the left greater trochanter. The left femur and neck are otherwise intact. Soft tissues: Normal. Bowel: Diverticulosis of the distal colon. Reproductive: Prior hysterectomy. CT/CT hip LT wo con* [id number] IMPRESSION: 1. Mildly displaced comminuted fracture through the base of the left femur greater trochanter.
--- NOTE | 2021-07-21 22:05 | XRR_ITS ---
PROCEDURE INFORMATION: Exam: XR Chest Exam date and time: 07/21/2021 10:05 PM Age: 76 years old Clinical indication: Other: Hypertension; Additional info: HTN TECHNIQUE: Imaging protocol: XR of the chest. Views: 1 view. COMPARISON: CR XR thoracic spine 3V* [id number] 01/19/2021 9:09 AM FINDINGS: Lungs: Unremarkable. No consolidation. Pleural spaces: Unremarkable. No pleural effusion. No pneumothorax. Heart/Mediastinum: Unremarkable. No cardiomegaly. Bones/joints: Anchors in the right humerus. Resection of the distal right clavicle. XR/XR chest 1V portable [id number] IMPRESSION: No acute findings.
--- NOTE | 2021-07-21 22:05 | ECG_ITS ---
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 Measurements Intervals [place] Rate: 73 P: 65 MT: 197 QRS: 56 QRSD: 77 T: 57 QT: 390 QTc: 432 Interpretive Statements SINUS RHYTHM LOW QRS VOLTAGE IN PRECORDIAL LEADS [QRS DEFLECTION < 1.0 mV IN CHEST LEADS] Compared to ECG 08/13/2018 10:13:37 No significant changes Electronically Signed On 07-24-2021 15:50:08 CDT by Flako Babcock M.D. [id number]
[2021-07-21 23:27] VITALS: BP 138/79; PULSE 80; RESP 16; O2SAT 97
[2021-07-21 23:35] LABS: Basophils % 0.4 %; Eosinophils % 0.3 %; Hematocrit 36.5 % (37.0-47.0); Hemoglobin 12.2 g/dL (11.5-15.3); Lymphocytes # 2.1 10^3/uL (0.8-4.8); Lymphocytes % 19.4 %; Mean Corpuscular HGB Conc 33.4 g/dL (30.0-36.0); Mean Corpuscular Hemoglobin 31.1 pg (28.0-34.0); Mean Corpuscular Volume 93.1 fl (81-99); Mean Platelet Volume 8.9 fL (7.4-10.4); Monocytes # 0.6 10^3/uL (0.2-0.9); Monocytes % 5.6 %; Neutrophils # 8.12 10^3/uL (1.8-7.7); Neutrophils % 73.9 %; Nucleated Red Blood Cells % 0 %; Platelet Count 218 10^3/cmm (130-400); Red Blood Count 3.92 10^6/uL (4.1-5.3); Red Cell Distribution Width 12.6 % (12.1-15.1)
[2021-07-21 23:46] LABS: INR 1.03 (0.8-1.2)
[2021-07-21 23:51] LABS: Alanine Aminotransferase 24 U/L (0-33); Albumin Level 4.4 g/dL (3.5-5.2); Alkaline Phosphatase 66 IU/L (35-105); Anion Gap 15.1 (5-19); Aspartate Amino Transferase 27 U/L (0-32); Blood Urea Nitrogen 18 mg/dL (8-23); Calcium 9.4 mg/dL (8.5-10.5); Carbon Dioxide 22 mmol/L (22-29); Chloride 104 mmol/L (98-107); Creatinine Clr Calc Pharmacy 51.2412; Globulin 2.2 g/dL (1.3-4.6); Glucose 93 mg/dL (65-115); Osmolality Calculated 286 mOsm/kg (285-295); Potassium 4.1 mmol/L (3.5-5.1); Sodium 137 mmol/L (136-145); Total Bilirubin 0.4 mg/dL (0.15-1.2); Total Protein 6.6 g/dL (6.6-8.7)
[2021-07-22] VITALS (8 sets, daily range): BP systolic 105–162; BP diastolic 63–85; PULSE 66–82; RESP 17–18; TEMP 36.3–36.9; O2SAT 94–98; BMI 27.1
--- NOTE | 2021-07-22 00:22 | PC.NURSE ---
i reported low temp 97.4 to nurse
--- NOTE | 2021-07-22 01:34 | P.HP_ITS ---
Providers/Chief Complaint Admitting Physician: Aminta Gordon MD Primary Care Provider: Dunia Padilla, BUDGET SPECIALIST-C Chief Complaint: fall History of Present Illness Rosemary Nelson is a 76 year old female with PMH hypothyroidism, migraine, Mild cognitive impairment with memory loss per outpatient notes review presenting today with mechanical fall on her porch following which she has not been able to ambulate. X Ray and hip CT showed Mildly displaced comminuted fracture through the base of the left femur greater trochanter. ROs negative for chest pain, dyspnea, palpitations, syncope Review of Systems General: Reports: 10 or more systems reviewed and unremarkable except in HPI and below Const: Denies: fever(s), chills or body aches Eyes: Denies: change in vision, blurry vision or photophobia ENMT: Reports: hoarseness; Denies: throat pain, enlarged tonsils, odynophagia or nasal congestion Card: Denies: chest pain, palpitations, irregular heart rhythm, edema, s welling of feet/ankles, lightheadedness, pre-syncope, dyspnea on exertion or orthopnea Resp: Denies: dyspnea, productive cough, non-productive cough, wheezing, stridor, pain on inspiration, change in phlegm color, hemoptysis or chest congestion GI: Denies: abdominal pain, nausea, vomiting, hematemesis, coffee ground emesis, dysphagia, heartburn, diarrhea, constipation, GI cramping, change in stool character, hematochezia or melena : Denies: flank pain, difficulty voiding, dysuria, urinary frequency, uri nary urgency, urinary hesitancy or hematuria Musc: Denies: neck pain, back pain, extremity pain, joint swelling, joint warmth or deformity Neuro: Denies: headache(s), numbness in extremities, weakness in extremities, sensory changes, difficulty walking, frequent falls, dizziness, vertigo, behavioral changes, Slurred speech present or seizure-like activity Psych: Denies: anxiety, depression, suicidal ideation or homicidal ideation Endo: Denies: polyuria, polydipsia, tired all the time, cold intolerance or hot flashes Riki/Lymph: Denies: easy bruising or easy bleeding Medications/Allergies Home Medications Medication Instructions Recorded Confirmed Last Taken Type acetaminophen 325 mg tablet 325 mg PO DAILY PRN tab 05/28/19 07/22/2107/21/22 History (Tylenol) ascorbate calcium (vitamin C) 1 tab PO DAILY 05/28/19 07/22/21 Unknown History boswellia 1 tab PO DAILY 05/28/19 07/22/21 Unknown History collegen 1 dose PO DAILY 05/28/19 07/22/21 Unknown History cysteine (L-cysteine) 500 mg 500 mg PO DAILY cap 05/28/19 07/22/21 Unknown History capsule lipoic acid 1 tab PO DAILY 05/28/19 07/22/21 Unknown History vitamin E (dl, acetate) 1 cap PO DAILY 05/28/19 07/22/21 Unknown History zinc 50 mg tablet 50 mg PO DAILY tab 05/28/19 07/22/21 Unknown History Rolling walker #1 ea 03/01/21 07/22/21 Unknown Rx azelastine 137 mcg (0.1 %) nasal 1 spray INTRANASAL BID #30 ml 04/05/21 07/22/21 07/21/21 Rx spray aerosol calcium carbonate-vitamin D3 500 1 tab PO .2 times day #60 tab 04/05/21 07/22/21 07/21/21 Rx mg (1,250 mg)-600 unit tablet (Os-Zak 500 + D3) fluticasone propionate 50 2 spray INTRANASAL DAILY #16 g 04/05/21 07/18/21 07/21/21 Rx mcg/actuation nasal spray,suspension (Flonase Allergy Relief) losartan 100 mg tablet 100 mg PO DAILY #30 tab 04/05/21 07/22/21 07/20/21 Rx magnesium gluconate 27 mg 27 mg PO BID #60 tab 04/05/21 07/22/21 07/21/21 Rx magnesium (500 mg) tablet (Mag-G) Quad Cane #1 ea 05/03/21 07/22/21 Unknown Rx thyroid (pork) 30 mg tablet See Rx Instructions PO .COMPLEX 06/24/21 07/22/21 07/21/21 Rx ([place] Thyroid) #60 tab amoxicillin 875 mg-potassium 1 tab PO BID #20 tab 07/13/21 07/22/21 07/21/21 Rx clavulanate 125 mg tablet (Augmentin) Allergies Allergy/AdvReac Type Severity Reaction Status Date / Time meperidine [From Demerol] AdvReac Severe gastric Verified 07/13/21 14:27 upset and headache Opioids - Morphine Analogues AdvReac Severe gastric Verified 07/13/21 14:27 upset and headache PFSH Acute PFSH: Medical History Altered gait Dry eye syndrome, bilateral Enrolled in chronic care management Environmental and seasonal allergies Essential hypertension Gout Hx of migraine headaches 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 Osteopenia Small vessel disease, cerebrovascular Surgical History History of arthroscopic knee surgery Left knee History of cervical spinal surgery History of hand surgery Left 4th metacarpal fracture History of hysterectomy with oophorectomy Status post left foot surgery after fracture Status post surgical removal of acromioclavicular joint 2019 Family History Mother Stroke Hypothyroidism Hypertension Father Heart disease Sister Cancer Lung and breast Other CAD (coronary artery disease) Diabetes Social History Smoking and tobacco status: former smoker Second hand smoke exposure: No Smoking risk assessment/counseling performed?: No Alcohol intake: never Desire information about alcohol rehabilitation?: No Counseling given: No Desire information about substance/drug rehabilitation?: No Counseling given: No Caregiver/support person: No Lives independently: Yes Household members: significant other Housing: House Marital status: service: No Current occupational status: unemployed History of recent travel: No Current gender identity: Female Vitals/I&O/Wt Last Vital Signs Temp 97.4 F L 07/22/21 00:21 Pulse 82 07/22/21 00:21 Resp 16 07/21/21 23:27 BP 157/85 07/22/21 00:21 Pulse Ox 98 07/22/21 00:21 Weight last 48 hrs Weight 67.132 kg Weight 64.864 kg Physical Exam Narrative: GEN: Awake, alert and oriented, no acute distress CVS: S1S2 N RS: CTA B/L Abd: Soft, nt/nd , bs+ 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 ADDENDUM: 07/21/21 0701 This study is correlated to the left femur x-ray images on 07/21/2021. There is a suspected mildly displaced fracture through the base of the left femur greater trochanter. Femur X-Ray 07/21/21 21:25 IMPRESSION: 1. Suspected left greater trochanteric femur fracture. Hip CT 07/21/21 21:25 IMPRESSION: 1. Mildly displaced comminuted fracture through the base of the left femur greater trochanter. Chest X-Ray 07/21/21 22:05 IMPRESSION: No acute findings. Laboratory Results WBC 11.0 10^3/uL (4.0-10.0) H 07/21/21 23:27 Corrected WBC Cancelled 07/21/21 23:14 RBC 3.92 10^6/uL (4.1-5.3) L 07/21/21 23:27 Hgb 12.2 g/dL (11.5-15.3) 07/21/21 23:27 Hct 36.5 % (37.0-47.0) L 07/21/21: MCV 93.1 fl (81-99) 07/21/21 23:27 MCH 31.1 pg (28.0-34.0) 07/21/21 23: MCHC 33.4 g/dL (30.0-36.0) 07/21/21 23: RDW 12.6 % (12.1-15.1) 07/21/21 23: Plt Count 218 10^3/cmm (130-400) 07/21/21 23:27 MPV 8.9 fL (7.4-10.4) 07/21/21 23:27 Gran % Cancelled 07/21/21 23:14 Neut % (Auto) 73.9 % 07/21/21: Lymph % (Auto) 19.4 % 07/21/21: [place] % (Auto) 5.6 % 07/21/21: Eos % (Auto) 0.3 % 07/21/21: Baso % (Auto) 0.4 % 07/21/21 23:27 Neut # (Auto) 8.12 10^3/uL (1.8-7.7) H 07/21/21: Lymph # (Auto) 2.1 10^3/uL (0.8-4.8) 07/21/21: [place] # (Auto) 0.6 10^3/uL (0.2-0.9) 07/21/21: Eos # (Auto) 0.0 10^3/uL (0.0-0.8) 07/21/21: Baso # (Auto) 0.0 10^3/uL (0.0-0.1) 07/21/21: Absolute Gran (auto) Cancelled 07/21/21 23:14 Nucleated RBC % (auto) 0 % 07/21/21: Nucleated RBCs # 0.0 /100WBC 07/21/21 23: PT 13.80 SECONDS (12.1-14.9) 07/21/21:27 INR 1.03 (0.8-1.2) 07/21/21:27 Sodium 137 mmol/L (136-145) 07/21/21 23:14 Potassium 4.1 mmol/L (3.5-5.1) 07/21/21 23:14 Chloride 104 mmol/L (98-107) 07/21/21 23:14 Carbon Dioxide 22 mmol/L (22-29) 07/21/21 23:14 Anion Gap 15.1 (5-19) 07/21/21 23:14 BUN 18 mg/dL (8-23) 07/21/21 23:14 Creatinine 0.8 mg/dL (0.5-0.9) 07/21/21 23:14 GFR Calculation Not Reportable 07/21/21 23:14 Glucose 93 mg/dL (65-115) 07/21/21 23:14 Calculated Osmolality 286 mOsm/kg (285-295) 07/21/21 23:14 Calcium 9.4 mg/dL (8.5-10.5) 07/21/21 23:14 Total Bilirubin 0.4 mg/dL (0.15-1.2) 07/21/21 23:14 AST 27 U/L (0-32) 07/21/21 23:14 ALT 24 U/L (0-33) 07/21/21 23:14 Alkaline Phosphatase 66 IU/L (35-105) 07/21/21 23:14 Total Protein 6.6 g/dL (6.6-8.7) 07/21/21 23:14 Albumin 4.4 g/dL (3.5-5.2) 07/21/21 23:14 Globulin 2.2 g/dL (1.3-4.6) 07/21/21 23:14 A&P Assessment and plan (1) Closed fracture of left hip: Admit for left femur greater trochanter.fracture Fracture related to mechanical fall on her porch No current chest pain, dyspnea, palpitations, syncope continue home dose of armour thyroid, losartan for HTN Reported allergy to opaites, using NSAIDs for pain management currently, monitor renal function Orthopedics consult for possible surgery NPO for above Status: Acute Qualifiers: Encounter type: initial encounter Qualified Code(s): S72.002A - Fracture of unspecified part of neck of left femur, initial encounter for closed fracture Attestations Medical Necessity Statement*: >2midnight admission anticipated for above management Coding Level of Care Code Acute Chief Console Operator for Chg Fwd Diagnoses Closed fracture of left hip S72.002A Encounter type: initial encounter
[2021-07-22] MEDS: ketorolac 30 mg/mL INJ 15 MG IVP ×3 (01:48→22:53)
[2021-07-22] MEDS: pantoprazole DR 40 mg Tablet PO (08:49)
[2021-07-22] MEDS: losartan 50 mg Tablet 100 MG PO (08:49)
[2021-07-22] MEDS: thyroid 60 mg Tablet 30 MG PO (08:50)
--- NOTE | 2021-07-22 09:29 | PM.CONSULT ---
Providers/Reason For Consult Consulting Physician/Specialty*: William Rosas MD; orthopedic surgeon Reason for Consult*: Left hip fracture Attending Physician: Hosea Hill MD Primary Care Provider: KAVITHA Gamez History of Present Illness History of Present Illness Rosemary Nelson is a 76 year old female who slipped on the floor last night landing on her left side with immediate pain. She has known compression fracture of the lumbar spine and underwent kyphoplasty's on February 21 of last [address] Dr. Kellogg. She progressed from a walker to a cane and was doing better. She described immediate pain after the fall and inability to bear weight. She was transferred to our emergency room where a radiograph and a CT scan revealed a fracture of her left greater trochanter. She was admitted to the hospital for pain control and possible detention placement Medications/Allergies Home Medications Medication Instructions Recorded Confirmed Last Taken Type acetaminophen 325 mg tablet 325 mg PO DAILY PRN tab 05/28/19 07/22/21 07/21/21 History (Tylenol) Rolling walker #1 ea 03/01/21 07/22/21 Unknown Rx azelastine 137 mcg (0.1 %) nasal 1 spray INTRANASAL BID #30 ml 04/05/21 07/22/21 07/21/21 Rx spray aerosol fluticasone propionate 50 2 spray INTRANASAL DAILY #16 g 04/05/21 07/22/21 07/21/21 Rx mcg/actuation nasal spray,suspension (Flonase Allergy Relief) losartan 100 mg tablet 100 mg PO DAILY #30 tab 04/05/21 07/22/21 07/21/21 Rx magnesium gluconate 27 mg 27 mg PO BID #60 tab 04/05/21 07/22/21 07/21/21 Rx magnesium (500 mg) tablet (Mag-G) Quad Cane #1 ea 05/03/21 07/22/21 Unknown Rx thyroid (pork) 30 mg tablet See Rx Instructions PO .COMPLEX 06/24/21 07/22/21 07/21/21 Rx ([place] Thyroid) #60 tab amoxicillin 875 mg-potassium 1 tab PO BID #20 tab 07/13/21 07/22/21 07/21/21 Rx clavulanate 125 mg tablet (Augmentin) alpha lipoic acid 100 mg capsule 100 mg PO DAILY 0307/22/21 07/21/21 History calcium carbonate 500 mg (1,250 1 tab PO BID 07/22/21 07/22/21 07/21/21 History mg)-vitamin D3 125 unit tablet Allergies Allergy/AdvReac Type Severity Reaction Status Date / Time meperidine [From Demerol] AdvReac Severe gastric Verified 07/22/21 08:47 upset and headache Opioids - Morphine Analogues AdvReac Severe gastric Verified 07/22/21 08:47 upset and headache Current Medications Generic Name Dose Route Start Last Admin Trade Name Freq PRN Reason Stop Dose Admin Ketorolac Tromethamine 15 mg 07/22/21 01:23 07/22/21 08:58 Ketorolac 30 Mg/Ml Inj IVP 07/27/21 01: 15 mg Q8H PRN Administration MODERATE PAIN Losartan Potassium 100 mg 07/22/21 09:00 07/22/21 08:49 Losartan 50 Mg Tablet PO 100 mg DAILY KITA Administration Pantoprazole Sodium 40 mg 07/22/21 09:00 07/22/21 08:[address] 40 Mg Tablet PO 40 mg DAILY KITA Administration Thyroid 30 mg 07/22/21 09:00 07/22/21 08:50 Thyroid 60 Mg Tablet PO 30 mg WeThFr@0900 KITA Administration PFSH Acute PFSH: Medical History Altered gait Dry eye syndrome, bilateral Enrolled in chronic care management Environmental and seasonal allergies Essential hypertension Gout Hx of migraine headaches 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 Osteopenia Small vessel disease, cerebrovascular Surgical History History of arthroscopic knee surgery Left knee History of cervical spinal surgery History of hand surgery Left 4th metacarpal fracture History of hysterectomy with oophorectomy Status post left foot surgery after fracture Status post surgical removal of acromioclavicular joint 2019 Family History Mother Stroke Hypothyroidism Hypertension Father Heart disease Sister Cancer Lung and breast Other CAD (coronary artery disease) Diabetes Social History Smoking and tobacco status: former smoker Second hand smoke exposure: No Smoking risk assessment/counseling performed?: No Alcohol intake: never Desire information about alcohol rehabilitation?: No Counseling given: No Desire information about substance/drug rehabilitation?: No Counseling given: No Caregiver/support person: No Lives independently: Yes Household members: significant other Housing: House Marital status: service: No Current occupational status: unemployed History of recent travel: No Current gender identity: Female Vitals/I&O/Wt Last Vital Signs Temp 97.5 F L 07/22/21 07:50 Pulse 67 07/22/21 07:50 Resp 18 07/22/21 07:50 BP 133/75 07/22/21 08:49 Pulse Ox 96 07/22/21 07:50 07/21/21 07/22/21 07/22/21 22:59 06:59 14:59 Output Total 300 / 300 Balance -300 / -300 Weight last 48 hrs Weight 148 lb Weight 143 lb Physical Exam Narrative: Rosemary is a healthy appearing 76-year-old female. She answers questions appropriately and is oriented to person place and time. She has no visible deformity of the left lower extremity. She has mild tenderness over her greater trochanter and mild pain with internal and external rotation of the left hip. She has a palpable left dorsalis pedis pulse. She will flex and send her toes and ankle on the left without motor deficit. Urinary Catheter Management: Null: Cath Placed During This Visit: yes Reason for Continuing Indwelling Catheter: Required Immobilization for Trauma or Surgery or Anesthesia Urinary Catheter Date of Insertion: 07/22/21 Urinary Catheter Time of Insertion: 00:58 Data : 07/21/21 23:27 07/21/21 23:14 Xray Ortho: Radiologist's impression: 2 views of the left hip are interpreted from this morning revealing what appears to be a fracture of the left greater trochanter. No extension is seen into the medial calcar. Other CT: My impression: I reviewed a CT scan of the left hip. Again a minimally displaced greater trochanteric fracture is identified. No intertrochanteric extension is noted. A&P Assessment and plan (1) Fracture of greater trochanter of left femur: The fracture is nondisplaced and treatment for this would be nonoperative. I will give orders to have therapy work with her on gait training. She may be 50% weightbearing. I would like to see her back in 2 weeks with repeat radiographs. She will require pain medications. She may be discharged home when stable with her walker. She is not interested in care home placement. Status: Acute Coding Level of Care Code Acute Otc Clerk for Bharat Baxter Diagnoses Fracture of greater trochanter of left femur S72.112A
--- NOTE | 2021-07-22 09:55 | PC.CHAP ---
Pastoral Care Encounter/Spiritual Assessment Type of Contact [] Declined program medical director visit [] Patient/Family/Request visit [] Outpatient visit [] Follow-up visit [] Physician referral [] Code/Alert [x] Routine visit [] Staff referral [] Actively dying [x] Patient sleeping [] Family support [] [] Out of room [] Palliative care [] [] Receiving care in room [] Pre-surgical visit [] Trauma [] Long length of stay [] ICU visit [] Other: Relational/Emotional Strength [] Patient feels connected with others/family/visitors/staff [] Distress [] Loneliness/isolation [] Abandonment Spirituality of Patient [] Person of Kassy [] Attends Zoroastrianism of their Kassy [] Believes in Prayer [] Reads Bible or Amish materials [] There are Spiritual issues to be addressed Prism Measurer Interventions [] Prayer [] Active listening [] Non-anxious presence [] Spiritual/emotional support [] Crisis/trauma care [] Spiritual counseling [] Bereavement support [] Provided bereavement packet [] Provided Bible/devotional materials [] Provided toy/stuffed animal, coloring book to patient or family member [] Provided Communion [] Anointing/[place] [] Salvation [] Completed spiritual assessment [] Other: Impact on Illness or Injury [] Angry [] Fearful [] Anxious [] Often cries [] Exhaustion [] Unable to work [] Unable to attend evangelical [] Unable to walk/stand [] Unable to read [] Unable to drive [] Unable to eat/drink [] Unable to sleep [] Unable to be with family [] Patient intubated [] Other: Summary Time spent with patient
[2021-07-22] MEDS: HYDROcodone-acetaminophen 5-325 mg Tablet 1 TAB PO ×2 (12:30→21:44)
--- NOTE | 2021-07-22 14:01 | PM.PN ---
Subjective Subjective: Patient was seen this morning, Dr. Rosas at bedside, plans on medical management instead of surgical intervention for mildly displaced commuted fracture, patient tells me that she really wants to try to go home today or tomorrow, but she has not gotten up out of bed, she feels a lot of pain in her hip, tells me that her fall was because she was trying to feed her cat Vitals/I&O/Wt Last Vital Signs Temp 97.9 F 07/22/21 11:00 Pulse 66 07/22/21 11:00 Resp 18 07/22/21 11:00 BP 118/71 07/22/21 11:00 Pulse Ox 95 07/22/21 11:00 07/21/21 07/22/21 07/22/21 22:59 06:59 14:59 Output Total 300 / 300 Balance -300 / -300 Weight last 48 hrs Weight 67.132 kg Weight 64.864 kg Physical Exam Const: COMMON NORMALS: no acute distress and patient oriented x3 Resp: COMMON NORMALS: normal respiratory effort, No retractions, No use of accessory muscles and clear to auscultation bilaterally AUSCULTATION: clear to auscultation bilaterally Cardio: COMMON NORMALS: regular rate, regular rhythm, S1 normal heart sound present and S2 normal heart sound present RATE: regular rate RHYTHM: regular rhythm HEART SOUNDS: S1 normal heart sound present and S2 normal heart sound present GI: COMMON NORMALS: Normal to inspection, nondistended, normoactive bowel sounds present, Soft to palpation, non-tender and No hepatosplenomegaly present PALPATION: Yes Soft to palpation and Yes No hepatosplenomegaly present Extremity: COMMON NORMALS: no pedal edema Neuro: COMMON NORMALS: patient oriented x3 Psych: COMMON NORMALS: mental status grossly normal Urinary Catheter Management: Null: Cath Placed During This Visit: yes Reason for Continuing Indwelling Catheter: Required Immobilization for Trauma or Surgery or Anesthesia Urinary Catheter Date of Insertion: 07/22/21 Urinary Catheter Time of Insertion: 00:58 Data : 07/21/21 23:27 07/21/21 23:14 A&P Assessment and plan (1) Closed fracture of left hip: Admit for left femur greater trochanter.fracture Mechanical fall Fracture related to mechanical fall on her porch No current chest pain, dyspnea, palpitations, syncope continue home dose of armour thyroid, losartan for HTN Orthopedics consult, conservatively managed, 50% weightbearing, PT OT, outpatient follow-up Continue PT OT as inpatient, Opiates, for pain control Plan on discharge in the next 24 to 48 hours Status: Acute Qualifiers: Encounter type: initial encounter Qualified Code(s): S72.002A - Fracture of unspecified part of neck of left femur, initial encounter for closed fracture Attestations Medical Necessity Statement*: Patient requires hospitalization for hip fracture Coding Level of Care Code Acute Plastic Parts Designer for Bharat Baxter Diagnoses Closed fracture of left hip S72.002A Encounter type: initial encounter
--- NOTE | 2021-07-22 19:29 | PC.NURSE ---
SHift SUmmary: Patient rested in bed throughout most of shift, but was up to a chair for about 2 hours. PT reports that she is 50% weight bearing on her left leg. Patient also sat up to the side of the bed for lunch. PRN toradal was effective for pain control. Patient is eager to do things independently.
[2021-07-23] MEDS: HYDROcodone-acetaminophen 5-325 mg Tablet 1 TAB PO ×2 (00:59→11:10)
[2021-07-23 03:19] LABS: Basophils % 0.5 %; Eosinophils # 0.1 10^3/uL (0.0-0.8); Eosinophils % 1.7 %; Hematocrit 35.6 % (37.0-47.0); Hemoglobin 11.2 g/dL (11.5-15.3); Lymphocytes # 2.4 10^3/uL (0.8-4.8); Lymphocytes % 36.3 %; Mean Corpuscular HGB Conc 31.5 g/dL (30.0-36.0); Mean Corpuscular Hemoglobin 31.3 pg (28.0-34.0); Mean Corpuscular Volume 99.4 fl (81-99); Mean Platelet Volume 9.6 fL (7.4-10.4); Monocytes # 0.5 10^3/uL (0.2-0.9); Monocytes % 8.2 %; Neutrophils # 3.45 10^3/uL (1.8-7.7); Nucleated Red Blood Cells % 0 %; Platelet Count 197 10^3/cmm (130-400); Red Blood Count 3.58 10^6/uL (4.1-5.3); Red Cell Distribution Width 12.7 % (12.1-15.1); White Blood Count 6.5 10^3/uL (4.0-10.0)
[2021-07-23 03:45] VITALS: BP 143/83; PULSE 68; RESP 18; TEMP 36.6; O2SAT 96
[2021-07-23 03:49] LABS: Alanine Aminotransferase 18 U/L (0-33); Albumin Level 3.7 g/dL (3.5-5.2); Alkaline Phosphatase 61 IU/L (35-105); Blood Urea Nitrogen 28 mg/dL (8-23); Carbon Dioxide 21 mmol/L (22-29); Chloride 105 mmol/L (98-107); Globulin 2.7 g/dL (1.3-4.6); Glucose 100 mg/dL (65-115); Osmolality Calculated 290 mOsm/kg (285-295); Sodium 137 mmol/L (136-145); Total Bilirubin 0.4 mg/dL (0.15-1.2); Total Protein 6.4 g/dL (6.6-8.7)
[2021-07-23 03:52] LABS: Anion Gap 15.4 (5-19); Aspartate Amino Transferase 30 U/L (0-32); Potassium 4.4 mmol/L (3.5-5.1)
[2021-07-23 08:00] VITALS: BP 148/87; PULSE 80; RESP 18; TEMP 36.3; O2SAT 96
[2021-07-23] MEDS: ketorolac 30 mg/mL INJ 15 MG IVP (09:17)
[2021-07-23] MEDS: pantoprazole DR 40 mg Tablet PO (09:21)
[2021-07-23] MEDS: thyroid 60 mg Tablet PO (09:21)
--- NOTE | 2021-07-23 11:40 | PM.DCS ---
Discharge Providers Date of Admission: 07/21/21 22:13 Date of Discharge: July 23, 2021 Attending Provider at Admission: Aminta Gordon MD Attending Provider at Discharge: Hosea Hill MD Primary Care Provider: KAVITHA Gamez Diagnoses at Discharge Discharge Diagnosis (1) Closed fracture of left hip: Status: Acute Qualifiers: Encounter type: initial encounter Qualified Code(s): S72.002A - Fracture of unspecified part of neck of left femur, initial encounter for closed fracture Reason for Visit Reason for Visit: fall Hospital Course Hospital Course Rosemary Nelson is a 76 year old female with PMH hypothyroidism, migraine, presenting today with mechanical fall on her porch following which she has not been able to ambulate. Patient presented to [facility] for closed fracture of left hip, left femur greater trochanteric fracture, orthopedic service saw her, recommended 50% weightbearing, PT OT, outpatient follow-up. Patient was managed as inpatient conservatively, PT OT, pain control, patient was ambulating on her own with minimal pain. Discharged home with pain control, instructions to continue to ambulate, and follow-up with orthopedic service as outpatient Physical Exam Const: COMMON NORMALS: no acute distress and patient oriented x3 Resp: COMMON NORMALS: normal respiratory effort, No retractions, No use of accessory muscles and clear to auscultation bilaterally AUSCULTATION: clear to auscultation bilaterally Cardio: COMMON NORMALS: regular rate, regular rhythm, S1 normal heart sound present and S2 normal heart sound present RATE: regular rate RHYTHM: regular rhythm HEART SOUNDS: S1 normal heart sound present and S2 normal heart sound present GI: COMMON NORMALS: Normal to inspection, nondistended, normoactive bowel sounds present, Soft to palpation, non-tender and No hepatosplenomegaly present PALPATION: Yes Soft to palpation and Yes No hepatosplenomegaly present Extremity: COMMON NORMALS: no pedal edema Neuro: COMMON NORMALS: patient oriented x3 Psych: COMMON NORMALS: mental status grossly normal Urinary Catheter Management: Null: Cath Placed During This Visit: yes Reason for Continuing Indwelling Catheter: Other Urinary Catheter Date of Insertion: 07/22/21 Urinary Catheter Time of Insertion: 00:58 Discharge Data Studies Completed and Pending Completed Studies During Hospitalization Category Date Time Status CT hip LT wo con* [id number] Urgent Cat Scan 07/21/21 21:25 Completed XR chest 1V portable [id number] Urgent Exams 07/21/21 22:05 Completed XR femur LT min 2V* [id number] Stat Exams 07/21/21 21:25 Completed XR hip LT 2-3V wo/w pel* [id number] Stat Exams 07/21/21 20:45 Completed Radiology Impressions Hip/Pelvis X-Ray 07/21/21 20:45 IMPRESSION: No acute findings. ADDENDUM: 07/21/21 This study is correlated to the left femur x-ray images on 07/21/2021. There is a suspected mildly displaced fracture through the base of the left femur greater trochanter. Femur X-Ray 07/21/21 21:25 IMPRESSION: 1. Suspected left greater trochanteric femur fracture. Hip CT 07/21/21 21:25 IMPRESSION: 1. Mildly displaced comminuted fracture through the base of the left femur greater trochanter. Chest X-Ray 07/21/21 22:05 IMPRESSION: No acute findings. Laboratory Results WBC 6.5 10^3/uL (4.0-10.0) 07/23/21 02:45 Corrected WBC Cancelled 07/21/21 23:14 RBC 3.58 10^6/uL (4.1-5.3) L 07/23/21 02:45 Hgb 11.2 g/dL (11.5-15.3) L 07/23/21 02:45 Hct 35.6 % (37.0-47.0) L 07/23/21 02:45 MCV 99.4 fl (81-99) H D 07/23/21 02:45 MCH 31.3 pg (28.0-34.0) 07/23/21 02:45 MCHC 31.5 g/dL (30.0-36.0) D 07/23/21 02:45 RDW 12.7 % (12.1-15.1) 07/23/21 02:45 Plt Count 197 10^3/cmm (130-400) 07/23/21 02:45 MPV 9.6 fL (7.4-10.4) 07/23/21 02:45 Gran % Cancelled 07/21/21 23:14 Neut % (Auto) 53.0 % 07/23/21 02:45 Lymph % (Auto) 36.3 % 07/23/21 02:45 [place] % (Auto) 8.2 % 07/23/21 02:45 Eos % (Auto) 1.7 % 07/23/21 02:45 Baso % (Auto) 0.5 % 07/23/21 02:45 Neut # (Auto) 3.45 10^3/uL (1.8-7.7) 07/23/21 02:45 Lymph # (Auto) 2.4 10^3/uL (0.8-4.8) 07/23/21 02:45 [place] # (Auto) 0.5 10^3/uL (0.2-0.9) 07/23/21 02:45 Eos # (Auto) 0.1 10^3/uL (0.0-0.8) 07/23/21 02:45 Baso # (Auto) 0.0 10^3/uL (0.0-0.1) 07/23/21 02:45 Absolute Gran (auto) Cancelled 07/21/21 23:14 Nucleated RBC % (auto) 0 % 07/23/21 02:45 Nucleated RBCs # 0.0 /100WBC 07/23/21 02:45 PT 13.80 SECONDS (12.1-14.9) 07/21/21 23:27 INR 1.03 (0.8-1.2) 07/21/21 23:27 Sodium 137 mmol/L (136-145) 07/23/21 02:45 Potassium 4.4 mmol/L (3.5-5.1) 07/23/21 02:45 Chloride 105 mmol/L (98-107) 07/23/21 02:45 Carbon Dioxide 21 mmol/L (22-29) L 07/23/21 02:45 Anion Gap 15.4 (5-19) 07/23/21 02:45 BUN 28 mg/dL (8-23) H 07/23/21 02:45 Creatinine 0.9 mg/dL (0.5-0.9) 07/23/21 02:45 GFR Calculation Not Reportable 07/23/21 02:45 Glucose 100 mg/dL (65-115) 07/23/21 02:45 Calculated Osmolality 290 mOsm/kg (285-295) 07/23/21 02:45 Calcium 9.0 mg/dL (8.5-10.5) 07/23/21 02:45 Total Bilirubin 0.4 mg/dL (0.15-1.2) 07/23/21 02:45 AST 30 U/L (0-32) 07/23/21 02:45 ALT 18 U/L (0-33) 07/23/21 02:45 Alkaline Phosphatase 61 IU/L (35-105) 07/23/21 02:45 Total Protein 6.4 g/dL (6.6-8.7) L 07/23/21 02:45 Albumin 3.7 g/dL (3.5-5.2) 07/23/21 02:45 Globulin 2.7 g/dL (1.3-4.6) 07/23/21 02:45 Vitals Last Vital Signs Temp 97.4 F L 07/23/21 08:00 Pulse 80 07/23/21 08:00 Resp 18 07/23/21 08:00 BP 148/87 07/23/21 08:00 Pulse Ox 96 07/23/21 08:00 Discharge Plan Discharge Patient Disposition: Home Condition: Stable Prescriptions: New hydrocodone-acetaminophen 5-325 mg tablet 1 tab PO Q4H Qty: 30 0RF Continued acetaminophen [Tylenol] 325 mg tablet 325 mg PO DAILY PRN (Reason: Pain) 0RF azelastine 137 mcg (0.1 %) aerosol,spray 1 spray intranasal BID Qty: 30 2RF Rx Instructions: administer into each nostril fluticasone propionate [Flonase Allergy Relief] 50 mcg/actuation spray,suspension 2 spray intranasal DAILY Qty: 16 2RF Rx Instructions: administer into each nostril losartan 100 mg tablet 100 mg PO DAILY Qty: 30 2RF magnesium gluconate [Mag-G] 27 mg magnesium (500 mg) tablet 27 mg PO BID Qty: 60 2RF (DME) Quad Cane See Rx Instructions .Route .MEDSUPPLY Qty: 1 0RF Rx Instructions: As directed thyroid (pork) [[place] Thyroid] 30 mg tablet See Rx Instructions PO .COMPLEX Qty: 60 2RF Rx Instructions: 60mg 4 days and 30mg 3 days PO; (DME) Rolling walker See Rx Instructions .Route .MEDSUPPLY Qty: 1 0RF Rx Instructions: As directed. Lipoic Acid 100 mg Capsule 100 mg PO DAILY 0RF Calcium 500 + D (D3) 500 mg(1,250mg) -125 unit Tablet 1 tab PO BID 0RF Discontinued amoxicillin-pot clavulanate [Augmentin] 875-125 mg tablet 1 tab PO BID Qty: 20 0RF Discharge Orders: Discharge Order (Routine); Ordered 07/23/21 Ordered By: Hosea Hill Other Ambulatory Orders: DME: Commode (Order) Location: None Selected Ordered By: Hosea Hill DME: Wheelchair (Order) Location: None Selected Ordered By: Hosea Hill Referrals: [facility] ([facility]) [Outside] Dunia Padilla, GEOPHYSICS SCIENTIST-C [Primary Care Provider] - William Rosas MD [Physician] - 2 weeks Discharge Diet: Advance as tolerated Discharge Activity: Limit activity as instructed Patient Instructions: Opioid Safety Activity Restrictions/Additional Instructions: Use walker. 25% weightbearing left lower extremity Discharge Attestations Time Spent in Discharge Care*: less than 30 min Quality Metrics Clinical Quality Measures [ No reported AMI, CVA or VTE this stay] Coding Level of Care Code Acute [facility] FW DC note Diagnoses Closed fracture of left hip S72.002A Encounter type: initial encounter
[2021-07-23 12:00] VITALS: BP 152/83; PULSE 72; RESP 18; TEMP 36.4; O2SAT 96
--- NOTE | 2021-07-23 14:18 | PC.NURSE ---
patient educated on D/C instructions including to follow up with PCP and Dr. Rosas, education on given for new prescription for Hydrocodone Patient contacted who is to provide transport Foly and IV removed
== END 2021-07-23 15:08 | disposition home health service (06) | DRG 536 ==
LOC: ER 22:19 → MEDSURG 22:56
PROVIDERS: Admitting Provider Student in an Organized Health Care Education/Training Program; Emergency Provider Emergency Medicine; PCP Nurse Practitioner; Visit Provider Family Medicine
DX: S72.112A Displaced fracture of greater trochanter of left femur, initial encounter for closed fracture (principal); W19.XXXA Unspecified fall, initial encounter; E03.9 Hypothyroidism, unspecified; I10 Essential (primary) hypertension; Z87.891 Personal history of nicotine dependence
CPT/HCPCS: 36415; 51702; 71045; 73502; 73552; 73700; 80053; 85025; 85610; 93005; 96374; 96375; 97110; 97116; 97162; 97165; 97530; 97535; 99285; J1885; J2270; J2405

== ENCOUNTER 2021-07-24 01:22 | Emergency (ER) | payer MEDICARE, OTHER, SELFPAY ==
[2021-07-24 01:28] VITALS: BP 164/121; PULSE 76; RESP 16; TEMP 36.6; O2SAT 94; BMI 21.9
--- NOTE | 2021-07-24 01:35 | ED_ITS ---
Documented by User: VALERIE Valdez 07/24/21 17:21 HPI - General Adult General: Chief complaint: Extremity Problem,Nontraumatic Stated complaint: HIP PAIN Time Seen by Provider: 07/24/21 01:24 History of Present Illness: Patient is a 76-year-old female who comes to the ED via EMS with left hip pain. Patient had a fall back on July 21 and was hospitalized for left hip fracture. Patient was discharged home from the hospital yesterday July 23. Patient says she discharged from the hospital today and her pain was controlled. This evening she states she started having some spasms and increased pain in left hip. She took a hydrocodone at 11 PM tonight and it was not helping. She was unable to control her pain with medications at home and called EMS and they brought her here to the ED for evaluation. Patient denies new injury or fall tonight to cause worsening pain. EMS gave patient 100mcg of fentanyl on the way here to the ED. Patient's pain is now controlled here in the ED and she rates it currently a 1 out of 10. Associated symptoms: Deny chest pain, dyspnea, headache(s), nausea, rash, palpitations or vomiting Review of Systems Const: Denies: fever(s), chills or fatigue Eyes: Denies: change in vision or eye discomfort ENMT: Denies: throat pain, odynophagia, nasal discharge or nasal congestion Card: Denies: chest pain, palpitations, edema, swelling of feet/ankles, dyspnea on exertion or orthopnea Resp: Denies: dyspnea, productive cough or non-productive cough GI: Denies: abdominal pain, nausea, vomiting, diarrhea, constipation or hematochezia : Denies: flank pain, dysuria or hematuria Musc: Reports: extremity pain (left hip); Denies: neck pain, back pain or extremity swelling Skin/Breast: Denies: rash or new lesions Neuro: Denies: headache(s), numbness in extremities or weakness in extremities PFS ED PFSH: Medical History Altered gait Dry eye syndrome, bilateral Enrolled in chronic care management Environmental and seasonal allergies Essential hypertension Gout Hx of migraine headaches 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 Osteopenia Small vessel disease, cerebrovascular Surgical History History of arthroscopic knee surgery Left knee History of cervical spinal surgery History of hand surgery Left 4th metacarpal fracture History of hysterectomy with oophorectomy Status post left foot surgery after fracture Status post surgical removal of acromioclavicular joint 2019 Family History Mother Stroke Hypothyroidism Hypertension Father Heart disease Sister Cancer Lung and breast Other CAD (coronary artery disease) Diabetes Social History Smoking and tobacco status: former smoker Second hand smoke exposure: No Smoking risk assessment/counseling performed?: No Alcohol intake: never Desire information about alcohol rehabilitation?: No Counseling given: No Desire information about substance/drug rehabilitation?: No Counseling given: No Caregiver/support person: No Lives independently: Yes Household members: significant other Housing: House Marital status: service: No Current occupational status: unemployed History of recent travel: No Current gender identity: Female Physical Exam Const: COMMON NORMALS: patient oriented x3 and alert GENERAL APPEARANCE: cooperative and comfortable HENMT: COMMON NORMALS: normocephalic HEAD & SCALP: normocephalic MOUTH: Normal oral and palatal mucosa present THROAT: posterior oropharynx normal and uvula midline Eye: COMMON NORMALS: Equal, round and reactive pupils present PUPIL: Yes Equal, round and reactive pupils present and Yes Pinpoint pupils bilaterally Neck/C-Spine: COMMON NORMALS: supple GENERAL: Yes normal visual inspection Resp: COMMON NORMALS: normal respiratory effort, No retractions, No use of accessory muscles and clear to auscultation bilaterally AUSCULTATION: clear to auscultation bilaterally Cardio: COMMON NORMALS: regular rate, regular rhythm, S1 normal heart sound present, S2 normal heart sound present, No gallops present (Cardio), No clicks present (Cardio), No murmurs present (Cardio) and Peripheral pulses 2+ throughout RATE: regular rate RHYTHM: regular rhythm HEART SOUNDS: S1 normal heart sound present and S2 normal heart sound present PERIPHERAL PULSES: Peripheral pulses 2+ throughout GI: COMMON NORMALS: Normal to inspection, nondistended, normoactive bowel sounds present, Soft to palpation, non-tender and no masses PALPATION: Yes Soft to palpation : COMMON NORMALS: Yes no CVA tenderness BLADDER/KIDNEY EXAM: Yes no CVA tenderness Back/Pelvis: COMMON NORMALS: no CVA tenderness Extremity: COMMON NORMALS: normal to inspection and no pedal edema Neuro: COMMON NORMALS: patient oriented x3 SENSORIUM/ORIENTATION: Yes alert Skin: GENERAL SKIN EXAM: dry skin Course Vital Signs: Vital signs: Vital Signs Temperature 97.9 F 07/24/21 01:28 Pulse Rate 76 07/24/21 01:28 Respiratory Rate 16 07/24/21 01:28 Blood Pressure 152/78 07/24/21 04:03 Pulse Oximetry 94 07/24/21 01:28 MDM - General Adult Medical Decision Making Patient is a 76-year-old female comes to the ED with left hip pain. Patient was just hospitalized here at [facility] for left hip fracture and was discharged home today with hydrocodone. Denies any injury or fall to cause pain tonight. Her main complaint is left hip pain and that her hydrocodone did not help. Reports having muscle spasms in the left leg because worsening pain. She took a dose of that approximately 2 hours before coming to the ED. She came in via EMS and they gave her 100 mcg of fentanyl. Her pain was controlled by the time she arrived here in the ED and says it is rated a 1 out of 10. Vitals are stable. She appears in no acute pain or distress. She appeared a little overmedicated after getting the fentanyl so I did not give her any more pain meds here in the ED. I did give her some Norflex to help with muscle spasms. Patient was stable for discharge home and was told to continue taking her hydrocodone as previously prescribed. Return to ED precautions given. Reviewing her discharge summary from the hospital today it sounds like they are going to set her up with physical therapy and Dr. Rosas wants to see patient in the next 2 weeks. Patient stood agree with plan. Discharge Plan Discharge Patient Disposition: Home Clinical Impression: Fracture of greater trochanter of left femur Qualifiers: Encounter type: subsequent encounter Fracture type: closed Fracture alignment: nondisplaced Fracture healing: with routine healing Qualified Code(s): S72.115D - Nondisplaced fracture of greater trochanter of left femur, subsequent encounter for closed fracture with routine healing Condition: Stable Prescriptions: New methocarbamol 750 mg tablet 750 mg PO BID PRN (Reason: muscle spasms and pain) Qty: 20 0RF No Action acetaminophen [Tylenol] 325 mg tablet 325 mg PO DAILY PRN (Reason: Pain) 0RF azelastine 137 mcg (0.1 %) aerosol,spray 1 spray intranasal BID Qty: 30 2RF Rx Instructions: administer into each nostril fluticasone propionate [Flonase Allergy Relief] 50 mcg/actuation spray,suspension 2 spray intranasal DAILY Qty: 16 2RF Rx Instructions: administer into each nostril losartan 100 mg tablet 100 mg PO DAILY Qty: 30 2RF magnesium gluconate [Mag-G] 27 mg magnesium (500 mg) tablet 27 mg PO BID Qty: 60 2RF (DME) Quad Cane See Rx Instructions .Route .MEDSUPPLY Qty: 1 0RF Rx Instructions: As directed thyroid (pork) [[place] Thyroid] 30 mg tablet See Rx Instructions PO .COMPLEX Qty: 60 2RF Rx Instructions: 60mg 4 days and 30mg 3 days PO; (DME) Rolling walker See Rx Instructions .Route .MEDSUPPLY Qty: 1 0RF Rx Instructions: As directed. alpha lipoic acid 100 mg Capsule 100 mg PO DAILY 0RF calcium carbonate-vitamin D3 500 mg(1,250mg) -125 unit Tablet 1 tab PO BID 0RF hydrocodone-acetaminophen 5-325 mg tablet 1 tab PO Q4H Qty: 30 0RF Discharge Orders: Discharge ED (Routine); Ordered 07/24/21 Ordered By: Samuel Burgos Referrals: Dunia Padilla, DATABASE MANAGEMENT SPECIALIST-C [Primary Care Provider] - Discharge Diet: Regular Discharge Activity: Use walker/crutches as instructed Patient Instructions: Hip Fracture (ED), Opioid Safety Activity Restrictions/Additional Instructions: Follow-up with medical provider as directed in the next 5 to 7 days for r eevaluation. Limit weightbearing on left leg per hospital discharge instructions. Take medications as prescribed. Return to the ER or your medical provider if condition worsens. Please read and understand discharge instructions. Thank you for choosing [facility] for your healthcare needs today. Please realize this is an emergency room and that we are providing you with a medical screening exam and this may not be complete and all inclusive of all the testing and or work up that you may need to determine your ailment or severity of your illness. It is very important that you follow up as instructed or that you return to the Emergency Department should you have concerns or if your condition changes or worsens in any way. 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 Osteopenia Small vessel disease, cerebrovascular Surgical History History of arthroscopic knee surgery Left knee History of cervical spinal surgery History of hand surgery Left 4th metacarpal fracture History of hysterectomy with oophorectomy Status post left foot surgery after fracture Status post surgical removal of acromioclavicular joint 2019 Family History Mother Stroke Hypothyroidism Hypertension Father Heart disease Sister Cancer Lung and breast Other CAD (coronary artery disease) Diabetes Social History Smoking and tobacco status: former smoker Second hand smoke exposure: No Smoking risk assessment/counseling performed?: No Alcohol intake: never Desire information about alcohol rehabilitation?: No Counseling given: No Desire information about substance/drug rehabilitation?: No Counseling given: No Caregiver/support person: No Lives independently: Yes Household members: significant other Housing: House Marital status: service: No Current occupational status: unemployed History of recent travel: No Current gender identity: Female Course Vital Signs: Vital signs: Vital Signs Temperature 97.9 F 07/24/21 01:28 Pulse Rate 76 07/24/21 01:28 Respiratory Rate 16 07/24/21 01:28 Blood Pressure 152/78 07/24/21 04:03 Pulse Oximetry 94 07/24/21 01:28 MDM - General Adult Medical Decision Making Patient is a 76-year-old female comes to the ED with left hip pain. Patient was just hospitalized here at [facility] for left hip fracture and was dis charged home today with hydrocodone. Denies any injury or fall to cause pain tonight. Her main complaint is left hip pain and that her hydrocodone did not help. Reports having muscle spasms in the left leg because worsening pain. She took a dose of that approximately 2 hours before coming to the ED. She came in via EMS and they gave her 100 mcg of fentanyl. Her pain was controlled by the time she arrived here in the ED and says it is rated a 1 out of 10. Vitals are stable. She appears in no acute pain or distress. She appeared a little overmedicated after getting the fentanyl so I did not give her any more pain meds here in the ED. I did give her some Norflex to help with muscle spasms. Patient was stable for discharge home and was told to continue taking her hydrocodone as previously prescribed. Return to ED precautions given. Reviewing her discharge summary from the hospital today it sounds like they are going to set her up with physical therapy and Dr. Rosas wants to see patient in the next 2 weeks. Patient stood agree with plan. This patient was originally seen by Mr. Loretta PA-C.? I agree with his history, evaluation, and treatment. Discharge Plan Discharge Patient Disposition: Home Clinical Impression: Fracture of greater trochanter of left femur Qualifiers: Encounter type: subsequent encounter Fracture type: closed Fracture alignment: nondisplaced Fracture healing: with routine healing Qualified Code(s): S72.115D - Nondisplaced fracture of greater trochanter of left femur, subsequent encounter for closed fracture with routine healing Condition: Stable Prescriptions: New methocarbamol 750 mg tablet 750 mg PO BID PRN (Reason: muscle spasms and pain) Qty: 20 0RF No Action acetaminophen [Tylenol] 325 mg tablet 325 mg PO DAILY PRN (Reason: Pain) 0RF azelastine 137 mcg (0.1 %) aerosol,spray 1 spray intranasal BID Qty: 30 2RF Rx Instructions: administer into each nostril fluticasone propionate [Flonase Allergy Relief] 50 mcg/actuation spray,suspension 2 spray intranasal DAILY Qty: 16 2RF Rx Instructions: administer into each nostril losartan 100 mg tablet 100 mg PO DAILY Qty: 30 2RF magnesium gluconate [Mag-G] 27 mg magnesium (500 mg) tablet 27 mg PO BID Qty: 60 2RF (DME) Quad Cane See Rx Instructions .Route .MEDSUPPLY Qty: 1 0RF Rx Instructions: As directed thyroid (pork) [[place] Thyroid] 30 mg tablet See Rx Instructions PO .COMPLEX Qty: 60 2RF Rx Instructions: 60mg 4 days and 30mg 3 days PO; (DME) Rolling walker See Rx Instructions .Route .MEDSUPPLY Qty: 1 0RF Rx Instructions: As directed. alpha lipoic acid 100 mg Capsule 100 mg PO DAILY 0RF calcium carbonate-vitamin D3 500 mg(1,250mg) -125 unit Tablet 1 tab PO BID 0RF hydrocodone-acetaminophen 5-325 mg tablet 1 tab PO Q4H Qty: 30 0RF Discharge Orders: Discharge ED (Routine); Ordered 07/24/21 Ordered By: Samuel Burgos Referrals: Dunia Padilla FNP-C [Primary Care Provider] - Discharge Diet: Regular Discharge Activity: Use walker/crutches as instructed Patient Instructions: Hip Fracture (ED), Opioid Safety Activity Restrictions/Additional Instructions: Follow-up with medical provider as directed in the next 5 to 7 days for reevaluation. Limit weightbearing on left leg per hospital discharge instructions. Take medications as prescribed. Return to the ER or your medical provider if condition worsens. Please read and understand discharge instructions. Thank you for choosing [facility] for your healthcare needs today. Please realize this is an emergency room and that we are providing you with a medical screening exam and this may not be complete and all inclusive of all the testing and or work up that you may need to determine your ailment or severity of your illness. It is very important that you follow up as instructed or that you return to the Emergency Department should you have concerns or if your condition changes or worsens in any way. Coding Level of Care Code ED Maintenance Tech for Bharat Baxter Exam Comprehensive
[2021-07-24] MEDS: orphenadrine 30 mg/mL Inj 2 mL 60 MG IVP (01:44)
[2021-07-24 04:03] VITALS: BP 152/78
== END 2021-07-24 05:21 | disposition home or self-care (01) ==
PROVIDERS: Emergency Provider Physician Assistant; PCP Nurse Practitioner
DX: S72.115A Nondisplaced fracture of greater trochanter of left femur, initial encounter for closed fracture (principal); I10 Essential (primary) hypertension; Z87.891 Personal history of nicotine dependence; W19.XXXA Unspecified fall, initial encounter
CPT/HCPCS: 96374; 99283; J2360

== ENCOUNTER → 2021-08-23 13:58 | Outpatient (BNVA) | payer MEDICARE, OTHER, SELFPAY | PROVIDERS: PCP Internal Medicine; Visit Provider Orthopaedic Surgery | DX: S72.115D Nondisplaced fracture of greater trochanter of left femur, subsequent encounter for closed fracture with routine healing (principal); X58.XXXD Exposure to other specified factors, subsequent encounter; Z87.891 Personal history of nicotine dependence | CPT/HCPCS: 73502 ==

== ENCOUNTER → 2021-09-06 11:05 | Outpatient (BNVA) | payer MEDICARE, OTHER, SELFPAY | PROVIDERS: PCP Internal Medicine; Visit Provider Nurse Practitioner | DX: E03.8 Other specified hypothyroidism (principal); E06.3 Autoimmune thyroiditis; I10 Essential (primary) hypertension; J30.89 Other allergic rhinitis; E55.9 Vitamin D deficiency, unspecified | CPT/HCPCS: 80053; 82306; 82607; 84443 ==

== ENCOUNTER → 2021-09-20 14:06 | Outpatient (BNVA) | payer MEDICARE, OTHER, SELFPAY | PROVIDERS: PCP Nurse Practitioner; Visit Provider Orthopaedic Surgery | DX: Z98.890 Other specified postprocedural states (principal); S72.115D Nondisplaced fracture of greater trochanter of left femur, subsequent encounter for closed fracture with routine healing; X58.XXXD Exposure to other specified factors, subsequent encounter; Z87.891 Personal history of nicotine dependence | CPT/HCPCS: 73502 ==

== ENCOUNTER → 2021-11-01 13:47 | Outpatient (BNVA) | payer MEDICARE, OTHER, SELFPAY | PROVIDERS: PCP Nurse Practitioner; Visit Provider Orthopaedic Surgery | DX: Z87.890 Personal history of sex reassignment (principal); Z87.891 Personal history of nicotine dependence | CPT/HCPCS: 73502; 99024 ==

== ENCOUNTER → 2021-12-02 11:58 | Outpatient (BNVA) | payer MEDICARE, OTHER, SELFPAY | PROVIDERS: PCP Nurse Practitioner; Visit Provider Nurse Practitioner | DX: E03.8 Other specified hypothyroidism (principal); E06.3 Autoimmune thyroiditis; I10 Essential (primary) hypertension; J30.89 Other allergic rhinitis | CPT/HCPCS: 80053; 84439; 84443; 84481 ==

== ENCOUNTER → 2022-01-04 11:09 | Outpatient (BNVA) | payer MEDICARE, OTHER, SELFPAY | PROVIDERS: PCP Nurse Practitioner; Visit Provider Nurse Practitioner | DX: E03.8 Other specified hypothyroidism (principal); E06.3 Autoimmune thyroiditis | CPT/HCPCS: 84443 ==

== ENCOUNTER 2022-01-20 06:00 | Outpatient (RCR) | payer MEDICARE, OTHER, SELFPAY | END 2022-02-10 23:59 | disposition home or self-care (01) | LOC: APT 06:00 | PROVIDERS: PCP Nurse Practitioner; Visit Provider Nurse Practitioner | DX: M54.50 Low back pain, unspecified (principal) | CPT/HCPCS: 97110; 97162 ==

== ENCOUNTER 2022-02-11 06:00 | Outpatient (RCR) | payer MEDICARE, OTHER, SELFPAY | END 2022-03-13 23:59 | disposition home or self-care (01) | LOC: APT 06:00 | PROVIDERS: PCP Nurse Practitioner; Visit Provider Nurse Practitioner | DX: M54.50 Low back pain, unspecified (principal) | CPT/HCPCS: 97110; 97112; 97164 ==

== ENCOUNTER 2022-03-14 06:00 | Outpatient (RCR) | payer MEDICARE, OTHER, SELFPAY | END 2022-04-12 23:59 | disposition home or self-care (01) | LOC: APT 06:00 | PROVIDERS: PCP Nurse Practitioner; Visit Provider Nurse Practitioner | DX: M54.50 Low back pain, unspecified (principal) | CPT/HCPCS: 97110 ==

== ENCOUNTER → 2022-03-16 14:54 | Outpatient (BNVA) | payer MEDICARE, OTHER, SELFPAY | PROVIDERS: PCP Nurse Practitioner; Visit Provider Nurse Practitioner | DX: E03.8 Other specified hypothyroidism (principal); E06.3 Autoimmune thyroiditis; I10 Essential (primary) hypertension; J30.89 Other allergic rhinitis; E78.2 Mixed hyperlipidemia | CPT/HCPCS: 80053; 80061; 84439; 84443; 84481 ==

== ENCOUNTER 2022-06-10 20:07 | Inpatient (IN) | payer MEDICARE, OTHER, SELFPAY ==
[2022-06-10] VITALS (18 sets, daily range): BP systolic 146–188; BP diastolic 86–106; PULSE 87–94; RESP 15–20; TEMP 36.4; O2SAT 92–97; BMI 21.9
--- NOTE | 2022-06-10 20:25 | XRR_ITS ---
PROCEDURE INFORMATION: Exam: XR Chest Exam date and time: 06/10/2022 8:34 PM Age: 77 years old Clinical indication: Injury or trauma; Fall; Blunt trauma (contusions or hematomas) TECHNIQUE: Imaging protocol: Radiologic exam of the chest. Views: 1 view. COMPARISON: CR XR chest 1V portable [id number] 07/21/2021 10:21 PM FINDINGS: Lungs: Small left basilar atelectasis. Pleural spaces: Unremarkable. No pleural effusion. No pneumothorax. Heart/Mediastinum: Unremarkable. No cardiomegaly. Bones/joints: Metallic anchors in the right humeral head. Chronic widening of the right AC joint. XR/XR chest 1V portable [id number] IMPRESSION: Small left basilar atelectasis
[2022-06-10] MEDS: fentaNYL 50 mcg/mL INJ 2mL IVP ×2 (20:29→22:13)
[2022-06-10] MEDS: ondansetron 2 mg/ML SDV 2 mL 4 MG IVP (20:29)
--- NOTE | 2022-06-10 20:32 | XRR_ITS ---
PROCEDURE INFORMATION: Exam: XR Right Femur Exam date and time: 06/10/2022 8:39 PM Age: 77 years old Clinical indication: Injury or trauma; Fall; Blunt trauma; Hip and thigh or upper leg; Right; Additional info: Fall right thigh pain TECHNIQUE: Imaging protocol: Radiologic exam of the Right femur. Views: 2 views. COMPARISON: No relevant prior studies available. FINDINGS: Bones/joints: Unremarkable. No acute fracture. Soft tissues: Unremarkable. XR/XR femur RT min 2V* [id number] IMPRESSION: No acute findings.
--- NOTE | 2022-06-10 20:35 | W.ED.FALL ---
HPI - Fall General: Chief Complaint: Fall Stated Complaint: FALL/CP Time Seen by Provider: 06/10/22 20:13 Source: patient History of Present Illness: 77-year-old female who lives at home with her . She tripped over her dog walking with her walker, and landed on her right hip. No head injury. She remembers the event. She complains of right groin pain. She states that she felt well earlier in the day, no history of fever or other illness MD complaint: fall Onset (ago): hour(s) Fall from: standing Fall witnessed: yes, by family Place fall occurred: home Loss of consciousness: None Prolonged down time: no Symptoms prior to fall: none Context: tripped/slipped Location of injury - extremities: Right: thigh Associated symptoms-after fall: Reports difficulty walking; Denies abdominal pain, chest pain, confusion, headache(s), neck pain, numbness, short of breath or weakness Review of Systems Const: Denies: fever(s) or chills Eyes: Denies: change in vision ENMT: Denies: throat pain Card: Denies: chest pain Resp: Denies: dyspnea, productive cough or non-productive cough GI: Denies: abdominal pain or vomiting : Denies: flank pain or difficulty voiding Musc: Denies: neck pain Neuro: Reports: difficulty walking; Denies: headache(s) or confusion PFSH ED PFSH: Medical History Altered gait Dry eye syndrome, bilateral Enrolled in chronic care management Environmental and seasonal allergies Essential hypertension Gout Hx of migraine headaches 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 Neuropathic pain Osteopenia Small vessel disease, cerebrovascular Surgical History History of arthroscopic knee surgery Left knee History of cervical spinal surgery History of hand surgery Left 4th metacarpal fracture History of hysterectomy with oophorectomy Status post left foot surgery after fracture Status post surgical removal of acromioclavicular joint 2019 Family History Mother Stroke Hypothyroidism Hypertension Father Heart disease Sister Cancer Lung and breast Other CAD (coronary artery disease) Diabetes Social History Smoking and tobacco status: former smoker Second hand smoke exposure: No Smoking risk assessment/counseling performed?: No Alcohol intake: never Desire information about alcohol rehabilitation?: No Counseling given: No Desire information about substance/drug rehabilitation?: No Counseling given: No Adopted: No Caregiver/support person: No Lives independently: Yes Household members: significant other Housing: House Marital status: Life Partner service: No Current occupational status: unemployed History of recent travel: No Current gender identity: Female Physical Exam Const: COMMON NORMALS: no acute distress GENERAL APPEARANCE: cooperative and frail appearing (Mild); not ill appearing NUTRITIONAL APPEARANCE: thin HENMT: COMMON NORMALS: normocephalic, atraumatic and Normal external nose present HEAD & SCALP: normocephalic and atraumatic FACE & SINUS: normal facial exam and face symmetric NOSE: Normal external nose present Eye: COMMON NORMALS: Equal, round and reactive pupils present and EOMs intact bilaterally PUPIL: Yes Equal, round and reactive pupils present Neck/C-Spine: GENERAL: Yes trachea midline Chest: CHEST: Yes Symmetrical chest wall rise Resp: COMMON NORMALS: normal respiratory effort, No retractions, No use of accessory muscles and clear to auscultation bilaterally AUSCULTATION: clear to auscultation bilaterally Cardio: COMMON NORMALS: regular rate and regular rhythm RATE: regular rate RHYTHM: regular rhythm GI: COMMON NORMALS: Normal to inspection, nondistended, normoactive bowel sounds present Extremity: NARRATIVE EXTREMITY EXAM: Exam the right lower extremity reveals tenderness in the groin and proximal thigh. There is pain on any movement of the hip. Sensation and pulses are intact distally. There is mild shortening. YTere is no deformity otherwise. Neuro: LISA COMA SCALE: document GCS findings Lisa coma scale eye opening: Spontaneous [place] coma scale verbal response: Orientated Lisa coma scale motor response: Obey commands Lisa coma scale total score: 15 SENSORY EXAM: Yes extremities (intact) Psych: COMMON NORMALS: speech normal SPEECH: Yes normal speech Skin: COMMON NORMALS: no rashes or lesions noted GENERAL SKIN EXAM: no rashes or lesions noted Course Vital Signs: Vital signs: Vital Signs Temperature 97.5 F L 06/10/22 20:12 Pulse Rate 94 06/10/22 20:12 Respiratory Rate 20 H 06/10/22 20:12 Blood Pressure 146/89 06/10/22 22:10 Pulse Oximetry 95 06/10/22 22:10 Oxygen Delivery Me thod 06/10/22 20:12 MDM - Fall Medical Decision Making 77-year-old female with right hip pain. She is awake and talking. Vitals have been good. Fentanyl and small doses has helped her pain. She has pain with any movement of that right hip or with pelvic movement. Initially femur x-ray is negative. She was sent for pelvic CT showing a nondisplaced inferior pubic ramus and pubic symphysis fracture. It also showed a nondisplaced small acetabular fracture. These are nonsurgical fractures in general. However, the patient will not be able to bear weight sufficiently. She will be admitted. Hospitalist will see the patient. Orthopedics was consulted from the ER. Lab Data 06/10/22 21:20 06/10/22 21:20 Radiology Impressions Chest X-Ray 06/10/22 20:25 IMPRESSION: Small left basilar atelectasis Femur X-Ray 06/10/22 20:32 IMPRESSION: No acute findings. Hip CT 06/10/22 21:31 IMPRESSION: 1. Nondisplaced fracture right anterior acetabular wall. 2. Fracture of the right inferior pubic ramus and pubic symphysis Laboratory Results WBC 8.8 10^3/uL (4.0-10.0) 06/10/22 21:20 RBC 3.59 10^6/uL (4.1-5.3) L 06/10/22 21:20 Hgb 11.0 g/dL (11.5-15.3) L 06/10/22 21:20 Hct 35.0 % (37.0-47.0) L 06/10/22 21:20 MCV 97.5 fl (81-99) 06/10/22 21:20 MCH 30.6 pg (28.0-34.0) 06/10/22 21:20 MCHC 31.4 g/dL (30.0-36.0) 06/10/22 21:20 RDW 13.8 % (12.1-15.1) 06/10/22 21:20 Plt Count 206 10^3/cmm (130-400) 06/10/22 21:20 MPV 9.6 fL (7.4-10.4) 06/10/22 21:20 Neut % (Auto) 71.9 % 06/10/22 21:20 Lymph % (Auto) 19.9 % 06/10/22 21:20 [place] % (Auto) 6.2 % 06/10/22 21:20 Eos % (Auto) 1.2 % 06/10/22 21:20 Baso % (Auto) 0.3 % 06/10/22 21:20 Neut # (Auto) 6.34 10^3/uL (1.8-7.7) 06/10/22 21:20 Lymph # (Auto) 1.8 10^3/uL (0.8-4.8) 06/10/22 21:20 [place] # (Auto) 0.6 10^3/uL (0.2-0.9) 06/10/22 21:20 Eos # (Auto) 0.1 10^3/uL (0.0-0.8) 06/10/22 21:20 Baso # (Auto) 0.0 10^3/uL (0.0-0.1) 06/10/22 21:20 Nucleated RBC % (auto) 0 % 06/10/22 21:20 Nucleated RBCs # 0.0 /100WBC 06/10/22 21:20 PT 14.50 SECONDS (12.1-14.9) 06/10/22 21:20 INR 1.10 (0.8-1.2) 06/10/22 21:20 APTT 25.9 SECONDS (23.9-36.7) 06/10/22 21:20 Sodium 140 mmol/L (136-145) 06/10/22 21:20 Potassium 4.0 mmol/L (3.5-5.1) 06/10/22 21:20 Chloride 105 mmol/L (98-107) 06/10/22 21:20 Carbon Dioxide 26 mmol/L (22-29) 06/10/22 21:20 Anion Gap 13.0 (5-19) 06/10/22 21:20 BUN 14 mg/dL (8-23) 06/10/22 21:20 Creatinine 0.8 mg/dL (0.5-0.9) 06/10/22 21:20 GFR Calculation Not Reportable 06/10/22 21:20 Glucose 115 mg/dL (65-115) 06/10/22 21:20 Calculated Osmolality 291 mOsm/kg (285-295) 06/10/22 21:20 Calcium 9.0 mg/dL (8.5-10.5) 06/10/22 21:20 Total Bilirubin 0.2 mg/dL (0.15-1.2) 06/10/22 21:20 AST 23 U/L (0-32) 06/10/22 21:20 ALT 20 U/L (0-33) 06/10/22 21:20 Alkaline Phosphatase 89 U/L (35-105) 06/10/22 21:20 Total Protein 6.7 g/dL (6.6-8.7) 06/10/22 21:20 Albumin 3.8 g/dL (3.5-5.2) 06/10/22 21:20 Globulin 2.9 g/dL (1.3-4.6) 06/10/22 21:20 Discharge Plan Discharge Patient Disposition: Admitted As Inpatient Clinical Impression: Closed fracture of pubic ramus, Acetabulum fracture, right Condition: Stable Prescriptions: No Action acetaminophen [Tylenol] 325 mg tablet 325 mg PO DAILY PRN (Reason: Pain) Dimetapp DM Cold-Cough (PE) 1-2.5-5 mg/5 mL solution 5 ml PO Q4H PRN (Reason: allergy symptoms) Qty: 118 0RF loperamide 2 mg capsule 2 mg PO Q6H PRN nortriptyline 10 mg capsule 10 mg PO BID Qty: 60 0RF calcium carbonate-vitamin D3 [Os-Zak 500 + D3] 500 mg-15 mcg (600 unit) tablet 1 tab PO .two times day Qty: 60 2RF thyroid (pork) [[place] Thyroid] 30 mg tablet See Rx Instructions PO .COMPLEX Qty: 60 2RF Rx Instructions: 60mg 4 days and 30mg 3 days PO; losartan 100 mg tablet 100 mg PO .at bedtime Qty: 30 2RF fluticasone propionate [Flonase Allergy Relief] 50 mcg/actuation spray,suspension 2 spray intranasal DAILY Qty: 16 2RF Rx Instructions: administer into each nostril azelastine 137 mcg (0.1 %) aerosol,spray 1 spray intranasal BID Qty: 30 2RF Rx Instructions: administer into each nostril rosuvastatin [Crestor] 5 mg tablet 5 mg PO DAILY Qty: 30 1RF venlafaxine [Effexor XR] 37.5 mg capsule,extended release 24hr 37.5 mg PO DAILY Qty: 30 2RF Rx Instructions: Stop Cymbalta magnesium gluconate [Mag-G] 27 mg magnesium (500 mg) tablet 27 mg PO BID Qty: 60 2RF alpha lipoic acid 100 mg Capsule 100 mg PO DAILY Referrals: Dunia Padilla, CORPORATE TRAVEL MANAGER-C [Primary Care Provider] - Patient Instructions: Opioid Safety, Pain Management Coding Level of Care Code ED Typewriter Mechanic for Chg Fwd Exam Comprehensive
--- NOTE | 2022-06-10 20:47 | ECG_ITS ---
[facility] Test Date: 2022-06-10 Pat Name: Rosemary Nelson Department: Room: Gender: Female Prize Jacker: : 1945 Requested By: Alan Baker Order Number: [id number] Elizabeth MD: Flako Babcock M.D. Measurements Intervals [place] Rate: 90 P: 52 MA: 213 QRS: 52 QRSD: 76 T: 38 QT: 353 QTc: 434 Interpretive Statements SINUS RHYTHM WITH FIRST DEGREE AV BLOCK Compared to ECG 07/22/2021 00:37:22 First degree AV block now present Electronically Signed On 06-11-2022 11:20:34 BLANK DRILLER by Flako Babcock M.D. [email or web address] [email or web address] north [id number]
--- NOTE | 2022-06-10 21:31 | CTR_ITS ---
PROCEDURE INFORMATION: Exam: CT Right Lower Extremity Without Contrast, Hip Exam date and time: 06/10/2022 9:43 PM Age: 77 years old Clinical indication: Injury or trauma; Fall; Blunt trauma; Hip; Right; Additional info: R hip pain p fall TECHNIQUE: Imaging protocol: CT of the Right lower extremity without contrast was performed. Exam focused on the hip. Radiation optimization: All CT scans at this facility use at least one of these dose optimization techniques: automated exposure control; mA and/or kV adjustment per patient size (includes targeted exams where dose is matched to clinical indication); or iterative reconstruction. Other protocol: This patient has received [address] and 0 known cardiac nuclear medicine studies in the 12 months prior to the current study. COMPARISON: CR XR hip RT 2-3V wo/w pel* [id number] 02/03/2021 1:43 PM RADIATION DOSE METRICS: Total DLP (mGy-cm): 274.51 FINDINGS: Bones/joints: Acute but nondisplaced fracture through the anterior right acetabular column. The femoral head and neck are intact. Minimally displaced acute fracture of the right inferior pubic ramus. There is a subtle nondisplaced fracture the right pubic symphysis Soft tissues: Normal. Vasculature: Scattered calcified plaque in the peripheral arteries. Reproductive: Hysterectomy. CT/CT hip RT wo con* [id number] IMPRESSION: 1. Nondisplaced fracture right anterior acetabular wall. 2. Fracture of the right inferior pubic ramus and pubic symphysis
[2022-06-10 21:56] LABS: Basophils % 0.3 %; Eosinophils # 0.1 10^3/uL (0.0-0.8); Eosinophils % 1.2 %; Lymphocytes # 1.8 10^3/uL (0.8-4.8); Lymphocytes % 19.9 %; Mean Corpuscular HGB Conc 31.4 g/dL (30.0-36.0); Mean Corpuscular Hemoglobin 30.6 pg (28.0-34.0); Mean Corpuscular Volume 97.5 fl (81-99); Mean Platelet Volume 9.6 fL (7.4-10.4); Monocytes # 0.6 10^3/uL (0.2-0.9); Monocytes % 6.2 %; Neutrophils # 6.34 10^3/uL (1.8-7.7); Neutrophils % 71.9 %; Nucleated Red Blood Cells % 0 %; Platelet Count 206 10^3/cmm (130-400); Red Blood Count 3.59 10^6/uL (4.1-5.3); Red Cell Distribution Width 13.8 % (12.1-15.1); White Blood Count 8.8 10^3/uL (4.0-10.0)
[2022-06-10 22:13] LABS: Partial Thromboplastin Time 25.9 SECONDS (23.9-36.7)
[2022-06-10 22:19] LABS: Alanine Aminotransferase 20 U/L (0-33); Albumin Level 3.8 g/dL (3.5-5.2); Alkaline Phosphatase 89 U/L (35-105); Aspartate Amino Transferase 23 U/L (0-32); Blood Urea Nitrogen 14 mg/dL (8-23); Carbon Dioxide 26 mmol/L (22-29); Chloride 105 mmol/L (98-107); Creatinine Clr Calc Pharmacy 46.6582; Globulin 2.9 g/dL (1.3-4.6); Glucose 115 mg/dL (65-115); Osmolality Calculated 291 mOsm/kg (285-295); Sodium 140 mmol/L (136-145); Total Bilirubin 0.2 mg/dL (0.15-1.2); Total Protein 6.7 g/dL (6.6-8.7)
[2022-06-10 23:32] LABS: Add Urine Microscopic? NO; Charge for UA Resulting for Rev
[2022-06-10 23:46] LABS: Bilirubin Urine Neg (Negative); Blood Urine Neg (Negative); Glucose Urine UA Norm (Normal); Ketones Urine Negative (Negative); Leukocyte Esterase Urine Negative (Negative); Nitrate Urine Negative (Negative); Protein Urine Neg (Negative); Specific Gravity, Urine 1.015 (1.005-1.030); Urine Appearance Clear (CLEAR); Urine Color Yellow (Yellow); Urobilinogen Urine Neg (Negative); pH Urine 6 (5-7)
--- NOTE | 2022-06-10 23:50 | PM.HP ---
Providers/Chief Complaint Admitting Physician: Aminta Gordon MD Primary Care Provider: Dunia Padilla, GUEST SERVICE HOST-C Chief Complaint: FALL/CP History of Present Illness Rosemary Nelson is a 77 year old female presenting to the emergency room with a mechanical fall after she tripped over her dog at home. No complaints of chest pain dyspnea palpitations syncope leading up to the event. Hip CT is suggestive of nondisplaced fracture of the right anterior acetabular wall and fracture of the right inferior pubic ramus and pubic symphysis. She is in significant pain at this time. Review of Systems General: Reports: 10 or more systems reviewed and unremarkable except in HPI and below Const: Denies: fever(s), chills or body aches Eyes: Denies: change in vision, blurry vision or photophobia ENMT: Reports: hoarseness; Denies: throat pain, enlarged tonsils, odynophagia or nasal congestion Card: Denies: chest pain, palpitations, irregular heart rhythm, edema, swelling of feet/ankles, lightheadedness, pre-syncope, dyspnea on exertion or orthopnea Resp: Denies: dyspnea, productive cough, non-productive cough, wheezing, stridor, pain on inspiration, change in phlegm color, hemoptysis or chest congestion GI: Denies: abdominal pain, nausea, vomiting, hematemesis, coffee ground emesis, dysphagia, heartburn, diarrhea, constipation, GI cramping, change in stool character, hematochezia or melena : Denies: flank pain, difficulty voiding, dysuria, urinary frequency, urinary urgency, urinary hesitancy or hematuria Musc: Denies: neck pain, back pain, extremity pain, joint swelling, joint warmth or deformity Neuro: Denies: headache(s), numbness in extremities, weakness in extremities, sensory changes, difficulty walking, frequent falls, dizziness, vertigo, behavioral changes, Slurred speech present or seizure-like activity Psych: Denies: anxiety, depression, suicidal ideation or homicidal ideation Endo: Denies: polyuria, polydipsia, tired all the time, cold intolerance or hot flashes Riki/Lymph: Denies: easy bruising or easy bleeding Medications/Allergies Home Medications Medication Instructions Recorded Confirmed Last Taken Type calcium carbonate 500 mg-vitamin 1 tab PO .two times day #60 tabs 09/06/21 06/11/22 06/09/22 18:00 Rx D3 15 mcg (600 unit) tablet (Os-Zak 500 + D3) azelastine 137 mcg (0.1 %) nasal 1 spray intranasal BID #30 mL 03/16/22 06/11/22 06/10/22 18:00 Rx spray aerosol fluticasone propionate 50 2 spray intranasal DAILY #16 grams 03/16/22 06/11/22 06/10/22 08:00 Rx mcg/actuation nasal spray,suspension (Flonase Allergy Relief) losartan 100 mg tablet 100 mg PO .at bedtime #30 tabs 03/16/22 06/11/22 06/09/22 20:00 Rx thyroid (pork) 30 mg tablet See Rx Instructions PO .COMPLEX 03/16/22 06/11/22 06/10/22 03:00 Rx ([place] Thyroid) #60 tabs magnesium gluconate 27 mg 27 mg PO BID #60 tabs 05/16/22 06/11/22 06/10/22 20:00 Rx magnesium (500 mg) tablet (Mag-G) Tylenol Arthritis 1 tab PO Q8H 06/11/22 06/11/22 06/10/22 18:00 History nortriptyline 10 mg capsule 10 mg PO DAILY 06/11/22 06/11/22 06/10/22 08:00 History Allergies Allergy/AdvReac Type Severity Reaction Status Date / Time meperidine [From Demerol] AdvReac Severe gastric Verified 06/08/22 17:12 upset and headache Opioids - Morphine Analogues AdvReac Severe gastric Verified 06/08/22 17:12 upset and headache PFSH Acute PFSH: Medical History Altered gait Dry eye syndrome, bilateral Enrolled in chronic care management Environmental and seasonal allergies Essential hypertension Gout Hx of migraine headaches 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 Neuropathic pain Osteopenia Small vessel disease, cerebrovascular Surgical History History of arthroscopic knee surgery Left knee History of cervical spinal surgery History of hand surgery Left 4th metacarpal fracture History of hysterectomy with oophorectomy Status post left foot surgery after fracture Status post surgical removal of acromioclavicular joint 2019 Family History Mother Stroke Hypothyroidism Hypertension Father Heart disease Sister Cancer Lung and breast Other CAD (coronary artery disease) Diabetes Social History Smoking and tobacco status: former smoker Second hand smoke exposure: No Smoking risk assessment/counseling performed?: No Alcohol intake: never Desire information about alcohol rehabilitation?: No Counseling given: No Desire information about substance/drug rehabilitation?: No Counseling given: No Adopted: No Caregiver/support person: No Lives independently: Yes Household members: significant other Housing: House Marital status: Life Partner service: No Current occupational status: unemployed History of recent travel: No Current gender identity: Female Vitals/I&O/Wt Last Vital Signs Temp 97.5 F L 06/10/22 20:12 Pulse 94 06/10/22 20:12 Resp 20 H 06/10/22 20:12 BP 146/89 06/10/22 22:10 Pulse Ox 95 06/10/22 22:10 O2 Del Method 06/10/22 20:12 Weight last 48 hrs Weight 54.431 kg Physical Exam Narrative: General:uncomfortable due to pain, AO x3 HEENT: PERRLA, pupils bilaterally equal and reactive, pallors not present Chest: Normal vesicular breath sounds, no added sounds, equal good air entry bilaterally CVS: S1-S2 regular, no murmurs, no tachycardia, no gallops, no rubs Abdomen: Soft, nontender, no organomegaly, bowel sounds present Neuro: No focal deficits, no facial deformity, AO x3, power 5/5 in all limbs Urinary Catheter Management: Null: Cath Placed During This Visit: yes Urinary Catheter Date of Insertion: 06/10/22 Urinary Catheter Time of Insertion: 23:29 Data 06/10/22 21:20 06/10/22 21:20 Other Labs: Radiology Impressions Chest X-Ray 06/10/22 20:25 IMPRESSION: Small left basilar atelectasis Femur X-Ray 06/10/22 20:32 IMPRESSION: No acute findings. Hip CT 06/10/22 21:31 IMPRESSION: 1. Nondisplaced fracture right anterior acetabular wall. 2. Fracture of the right inferior pubic ramus and pubic symphysis Laboratory Results WBC 8.8 10^3/uL (4.0-10.0) 06/10/22 21:20 RBC 3.59 10^6/uL (4.1-5.3) L 06/10/22 21:20 Hgb 11.0 g/dL (11.5-15.3) L 06/10/22 21:20 Hct 35.0 % (37.0-47.0) L 06/10/22 21:20 MCV 97.5 fl (81-99) 06/10/22 21:20 MCH 30.6 pg (28.0-34.0) 06/10/22 21:20 MCHC 31.4 g/dL (30.0-36.0) 06/10/22 21:20 RDW 13.8 % (12.1-15.1) 06/10/22 21:20 Plt Count 206 10^3/cmm (130-400) 06/10/22 21:20 MPV 9.6 fL (7.4-10.4) 06/10/22 21:20 Neut % (Auto) 71.9 % 06/10/22 21:20 Lymph % (Auto) 19.9 % 06/10/22 21:20 [place] % (Auto) 6.2 % 06/10/22 21:20 Eos % (Auto) 1.2 % 06/10/22 21:20 Baso % (Auto) 0.3 % 06/10/22 21:20 Neut # (Auto) 6.34 10^3/uL (1.8-7.7) 06/10/22 21:20 Lymph # (Auto) 1.8 10^3/uL (0.8-4.8) 06/10/22 21:20 [place] # (Auto) 0.6 10^3/uL (0.2-0.9) 06/10/22 21:20 Eos # (Auto) 0.1 10^3/uL (0.0-0.8) 06/10/22 21:20 Baso # (Auto) 0.0 10^3/uL (0.0-0.1) 06/10/22 21:20 Nucleated RBC % (auto) 0 % 06/10/22 21:20 Nucleated RBCs # 0.0 /100WBC 06/10/22 21:20 PT 14.50 SECONDS (12.1-14.9) 06/10/22 21:20 INR 1.10 (0.8-1.2) 06/10/22 21:20 APTT 25.9 SECONDS (23.9-36.7) 06/10/22 21:20 Sodium 140 mmol/L (136-145) 06/10/22 21:20 Potassium 4.0 mmol/L (3.5-5.1) 06/10/22 21:20 Chloride 105 mmol/L (98-107) 06/10/22 21:20 Carbon Dioxide 26 mmol/L (22-29) 06/10/22 21:20 Anion Gap 13.0 (5-19) 06/10/22 21:20 BUN 14 mg/dL (8-23) 06/10/22 21:20 Creatinine 0.8 mg/dL (0.5-0.9) 06/10/22 21:20 GFR Calculation Not Reportable 06/10/22 21:20 Glucose 115 mg/dL (65-115) 06/10/22 21:20 Calculated Osmolality 291 mOsm/kg (285-295) 06/10/22 21:20 Calcium 9.0 mg/dL (8.5-10.5) 06/10/22 21:20 Total Bilirubin 0.2 mg/dL (0.15-1.2) 06/10/22 21:20 AST 23 U/L (0-32) 06/10/22 21:20 ALT 20 U/L (0-33) 06/10/22 21:20 Alkaline Phosphatase 89 U/L (35-105) 06/10/22 21:20 Total Protein 6.7 g/dL (6.6-8.7) 06/10/22 21:20 Albumin 3.8 g/dL (3.5-5.2) 06/10/22 21:20 Globulin 2.9 g/dL (1.3-4.6) 06/10/22 21:20 Urine Color Yellow (Yellow) 06/10/22 23:25 Urine Appearance Clear (CLEAR) 06/10/22 23:25 Urine pH 6 (5-7) 06/10/22 23:25 Ur Specific [place] 1.015 (1.005-1.030) 06/10/22 23:25 Urine Protein Neg (Negative) 06/10/22 23:25 Urine Glucose (UA) Norm (Normal) 06/10/22 23:25 Urine Ketones Negative (Negative) 06/10/22 23:25 Urine Blood Neg (Negative) 06/10/22 23:25 Urine Nitrate Negative (Negative) 06/10/22 23:25 Urine Bilirubin Neg (Negative) 06/10/22 23:25 Urine Urobilinogen Neg mg/dL (Negative) 06/10/22 23:25 Ur Leukocyte Esterase Negative (Negative) 06/10/22 23:25 A&P Assessment and plan (1) Closed fracture of pubic ramus: (2) Acetabulum fracture, right: Plan Admit to [facility]. CT findings were discussed by ER physician Ortho, recommended conservative management for now. Management with as needed morphine, p.o. Percocet and IV Toradol. Chart lists a more opioid allergy, however she has tolerated doses of morphine and fentanyl today. Additional lidocaine patch. Bedrest until Ortho can evaluate PT OT eval, mobility per Ortho recommendations. Attestations Medical Necessity Statement*: > 2 midnight admission anticipated for above defined care Coding Level of Care Code Acute Code for g Fwd Diagnoses Closed fracture of pubic ramus S32.599A Acetabulum fracture, right S32.401A
[2022-06-11] VITALS (15 sets, daily range): BP systolic 99–153; BP diastolic 58–86; PULSE 73–87; RESP 15–18; TEMP 36.4–36.5; O2SAT 92–96; BMI 24.3
[2022-06-11] MEDS: ketorolac 30 mg/mL INJ 15 MG IVP (00:07)
[2022-06-11] MEDS: enoxaparin 40 mg/0.4 mL Syringe SUBCUT ×2 (00:07→23:16)
[2022-06-11] MEDS: morphine 4 mg/mL SDV 1 mL 2 MG IVP ×2 (01:49→05:53)
[2022-06-11] MEDS: tizanidine 4 mg Tablet 2 MG PO (01:49)
[2022-06-11] MEDS: ondansetron 2 mg/ML SDV 2 mL 4 MG IVP (01:50)
[2022-06-11] MEDS: atorvastatin 40 mg Tablet 20 MG PO (08:30)
[2022-06-11] MEDS: venlafaxine ER (24HR) 37.5 mg Capsule PO (08:31)
[2022-06-11] MEDS: lidocaine 5% Patch 1 PATCH TOPICAL ×2 (08:32→21:26)
[2022-06-11] MEDS: pantoprazole DR 40 mg Tablet PO (08:32)
[2022-06-11] MEDS: oxyCODONE-APAP 5-325 mg Tablet 1 TAB PO ×3 (08:34→23:19)
--- NOTE | 2022-06-11 11:46 | PC.OT ---
Request for OT eval received. Patient is on bedrest until ortho consult received. Will attempt evaluation after the ortho consult.
--- NOTE | 2022-06-11 12:39 | PM.PN ---
Subjective Subjective: Patient was seen this morning, she tells me that she has had multiple fractures in the past, she has fractured her right knee in her collarbone her foot, he has had multiple surgeries, she says that this fall happened on Sunday when she was ambulating in a walker she is always afraid that she might fall but her dog came between her walker resulting in her fall, she continued to have pain that is what brought her in, no head trauma, no nausea, no vomiting, no blurry vision , She continues to have pain, but the morphine seems to do the trick she tells me Vitals/I&O/Wt Last Vital Signs Temp 97.6 F 06/11/22 12:00 Pulse 73 06/11/22 12:00 Resp 16 06/11/22 12:00 BP 131/77 06/11/22 12:00 Pulse Ox 94 06/11/22 12:00 O2 Del Method 06/11/22 03:59 06/10/22 06/11/22 06/11/22 22:59 06:59 14:59 Output Total 400 / 400 Balance -400 / -400 Weight last 48 hrs Weight 60.328 kg Weight 54.431 kg Physical Exam Const: COMMON NORMALS: no acute distress and patient oriented x3 Resp: COMMON NORMALS: normal respiratory effort, No retractions, No use of accessory muscles and clear to auscultation bilaterally AUSCULTATION: clear to auscultation bilaterally Cardio: COMMON NORMALS: regular rate, regular rhythm, S1 normal heart sound present and S2 normal heart sound present RATE: regular rate RHYTHM: regular rhythm HEART SOUNDS: S1 normal heart sound present and S2 normal heart sound present GI: COMMON NORMALS: Normal to inspection, nondistended, normoactive bowel sounds present and non-tender Extremity: COMMON NORMALS: no pedal edema Neuro: COMMON NORMALS: patient oriented x3 Psych: COMMON NORMALS: mental status grossly normal Urinary Catheter Management: Null: Cath Placed During This Visit: yes Reason for Continuing Indwelling Catheter: Required Immobilization for Trauma or Surgery or Anesthesia Urinary Catheter Date of Insertion: 06/10/22 Urinary Catheter Time of Insertion: 23:29 Data 06/10/22 21:20 06/10/22 21:20 A&P Assessment and plan (1) Closed fracture of pubic ramus: (2) Acetabulum fracture, right: (3) Intractable pain: Plan Admit to [facility]. CT findings were discussed by ER physician Simon, recommended conservative management for now. Management with as needed morphine, p.o. Percocet and IV Toradol. Chart lists a more opioid allergy, however she has tolerated doses of morphine and fentanyl today. Additional lidocaine patch. Bedrest until Ortho can evaluate She is alert oriented x3, she can follow commands, but her responses are a bit delayed, she does space out, although she denies falling hitting her head, I will order a CT of the head to rule out intracranial bleed PT OT eval, mobility per Ortho recommendations. Attestations Medical Necessity Statement*: Patient requires hospitalization for right acetabular fracture, inpatient, greater than 2 midnights Coding Level of Care Code Acute Code for [facility] Fwd Diagnoses Closed fracture of pubic ramus S32.599A Acetabulum fracture, right S32.401A Intractable pain R52
--- NOTE | 2022-06-11 12:42 | CTR_ITS ---
PROCEDURE INFORMATION: Exam: CT Head Without Contrast Exam date and time: 06/11/2022 4:15 PM Age: 77 years old Clinical indication: Altered mental status/memory loss; Additional info: AMS TECHNIQUE: Imaging protocol: Computed tomography of the head without contrast. Radiation optimization: All CT scans at this facility use at least one of these dose optimization techniques: automated exposure control; mA and/or kV adjustment per patient size (includes targeted exams where dose is matched to clinical indication); or iterative reconstruction. Other protocol: This patient has received 2 known CTs and 0 known cardiac nuclear medicine studies in the 12 months prior to the current study. COMPARISON: CT head wo/w con [id number] 10/16/2018 10:15 AM RADIATION DOSE METRICS: Total DLP (mGy-cm): 1058.24 FINDINGS: Brain: No hemorrhage. No edema. Moderate diffuse cerebral atrophy. No significant white matter disease. No mass effect. Cerebral ventricles: No ventriculomegaly. Paranasal sinuses: Visualized sinuses are unremarkable. No fluid levels. Mastoid air cells: Visualized mastoid air cells are well aerated. Bones/joints: Unremarkable. No acute fracture. Soft tissues: Unremarkable. CT/CT head wo con* [id number] IMPRESSION: 1. No acute intracranial abnormality. 2. Moderate diffuse cerebral atrophy.
--- NOTE | 2022-06-11 21:41 | PC.NURSE ---
bp was 99/58 @1999 and rechecked it was 118/72, Dr. Gordon notified nurse instructed to hold Cozaar
[2022-06-12 04:00] VITALS: BP 137/76; PULSE 74; RESP 16; TEMP 36.6; O2SAT 94
[2022-06-12 04:32] LABS: Basophils % 0.6 %; Eosinophils # 0.2 10^3/uL (0.0-0.8); Eosinophils % 3.5 %; Hematocrit 32.4 % (37.0-47.0); Hemoglobin 10.2 g/dL (11.5-15.3); Lymphocytes # 2.1 10^3/uL (0.8-4.8); Lymphocytes % 40.5 %; Mean Corpuscular HGB Conc 31.5 g/dL (30.0-36.0); Mean Corpuscular Hemoglobin 30.6 pg (28.0-34.0); Mean Corpuscular Volume 97.3 fl (81-99); Mean Platelet Volume 9.7 fL (7.4-10.4); Monocytes # 0.4 10^3/uL (0.2-0.9); Monocytes % 7.4 %; Neutrophils # 2.43 10^3/uL (1.8-7.7); Neutrophils % 47.6 %; Nucleated Red Blood Cells % 0 %; Platelet Count 192 10^3/cmm (130-400); Red Blood Count 3.33 10^6/uL (4.1-5.3); Red Cell Distribution Width 13.7 % (12.1-15.1); White Blood Count 5.1 10^3/uL (4.0-10.0)
[2022-06-12 04:55] LABS: Alanine Aminotransferase 15 U/L (0-33); Albumin Level 3.6 g/dL (3.5-5.2); Alkaline Phosphatase 73 U/L (35-105); Anion Gap 13.4 (5-19); Aspartate Amino Transferase 21 U/L (0-32); Blood Urea Nitrogen 20 mg/dL (8-23); Calcium 8.8 mg/dL (8.5-10.5); Carbon Dioxide 26 mmol/L (22-29); Chloride 106 mmol/L (98-107); Creatinine Clr Calc Pharmacy 48.7815; Globulin 2.5 g/dL (1.3-4.6); Glucose 86 mg/dL (65-115); Osmolality Calculated 294 mOsm/kg (285-295); Potassium 4.4 mmol/L (3.5-5.1); Sodium 141 mmol/L (136-145); Total Bilirubin 0.4 mg/dL (0.15-1.2); Total Protein 6.1 g/dL (6.6-8.7)
[2022-06-12 08:00] VITALS: BP 177/89; PULSE 85; RESP 18; TEMP 36.5; O2SAT 96
[2022-06-12] MEDS: lidocaine 5% Patch 1 PATCH TOPICAL (08:22)
[2022-06-12] MEDS: atorvastatin 40 mg Tablet 20 MG PO (08:22)
[2022-06-12] MEDS: venlafaxine ER (24HR) 37.5 mg Capsule PO (08:23)
[2022-06-12] MEDS: pantoprazole DR 40 mg Tablet PO (08:23)
--- NOTE | 2022-06-12 10:19 | PC.CHAP ---
Pastoral Care Encounter/Spiritual Assessment Type of Contact [] Declined paper core machine operator visit [] Patient/Family/Request visit [] Outpatient visit [] Follow-up visit [] Physician referral [] Code/Alert [] Routine visit [] Staff referral [] Actively dying [x] Patient sleeping [] Family support [] [] Out of room [] Palliative care [] [] Receiving care in room [] Pre-surgical visit [] Trauma [] Long length of stay [] ICU visit [] Other: Relational/Emotional Strength [] Patient feels connected with others/family/visitors/staff [] Distress [] Loneliness/isolation [] Abandonment Spirituality of Patient [] Person of Kassy [] Attends Christian of their Kassy [] Believes in Prayer [] Reads Bible or Worship materials [] There are Spiritual issues to be addressed Fast Food Attendant Interventions [] Prayer [] Active listening [] Non-anxious presence [] Spiritual/emotional support [] Crisis/trauma care [] Spiritual counseling [] Bereavement support [] Provided bereavement packet [] Provided Bible/devotional materials [] Provided toy/stuffed animal, coloring book to patient or family member [] Provided Communion [] Anointing/[place] [] Salvation [] Completed spiritual assessment [] Other: Impact on Illness or Injury [] Angry [] Fearful [] Anxious [] Often cries [] Exhaustion [] Unable to work [] Unable to attend shinto [] Unable to walk/stand [] Unable to read [] Unable to drive [] Unable to eat/drink [] Unable to sleep [] Unable to be with family [] Patient intubated [] Other: Summary Time spent with patient
[2022-06-12 12:00] VITALS: BP 156/74; PULSE 89; RESP 18; TEMP 36.6; O2SAT 94
--- NOTE | 2022-06-12 12:13 | P.PN_ITS ---
Subjective Subjective: patient was seen this morning she is a bit hesitant abotu getting up due to pain , she feels the pain medication makes her feel off, no chest pain, no shortness of breath Vitals/I&O/Wt Last Vital Signs Temp 97.7 F 06/12/22 08:00 Pulse 85 06/12/22 08:00 Resp 18 06/12/22 08:00 BP 177/89 06/12/22 08:00 Pulse Ox 96 06/12/22 08:00 O2 Del Method 06/12/22 08:00 06/11/22 06/12/22 06/12/22 22:59 06:59 14:59 Intake Total 180 / 180 Output Total 350 / 350 Balance 180 / 180 -350 / -170 Weight last 48 hrs Weight 60.328 kg Weight 54.431 kg Physical Exam Const: COMMON NORMALS: no acute distress and patient oriented x3 Resp: COMMON NORMALS: normal respiratory effort, No retractions, No use of accessory muscles and clear to auscultation bilaterally AUSCULTATION: clear to auscultation bilaterally Cardio: COMMON NORMALS: regular rate, regular rhythm, S1 normal heart sound present and S2 normal heart sound present RATE: regular rate RHYTHM: r egular rhythm HEART SOUNDS: S1 normal heart sound present and S2 normal heart sound present GI: COMMON NORMALS: Normal to inspection, nondistended, normoactive bowel sounds present and non-tender Extremity: COMMON NORMALS: no pedal edema Neuro: COMMON NORMALS: patient oriented x3 Psych: COMMON NORMALS: mental status grossly normal Urinary Catheter Management: Null: Cath Placed During This Visit: yes Reason for Continuing Indwelling Catheter: Required Immobilization for Trauma or Surgery or Anesthesia Urinary Catheter Date of Insertion: 06/10/22 Urinary Catheter Time of Insertion: 23:29 Data 06/12/22 03:49 06/12/22 03:49 A&P Assessment and plan (1) Closed fracture of pubic ramus: (2) Acetabulum fracture, right: (3) Intractable pain: Plan Admit to [facility]. CT findings were discussed by ER physician Simon, recommended conservative management for now. Management with as needed morphine, pchange percocet to norco and IV Toradol. Chart lists a more opioid allergy, however she has tolerated doses of morphine and fentanyl today. Additional lidocaine patch. weat bearning as tolerated, pt/ot She is alert oriented x3, she can follow commands, but her responses are a bit delayed, she does space out, although she denies falling hitting her head, ct head negative, likely effect of percocet, change to norco PT OT eval, mobility per Ortho recommendations. Attestations Medical Necessity Statement*: patient requirs hospitalization for fall, fracture, intractable pain Coding Level of Care Code Acute Code for [facility] Diagnoses Closed fracture of pubic ramus S32.599A Acetabulum fracture, right S32.401A Intractable pain R52
[2022-06-12] MEDS: HYDROcodone-acetaminophen 5-325 mg Tablet 1 TAB PO (12:49)
[2022-06-12 16:00] VITALS: BP 149/91; PULSE 90; RESP 18; TEMP 36.4; O2SAT 97
--- NOTE | 2022-06-12 17:04 | PM.CONSULT ---
Providers/Reason For Consult Consulting Physician/Specialty*: William Rosas MD; orthopedic surgery Reason for Consult*: Right pelvic fracture Attending Physician: Hosea Hill MD Primary Care Provider: KAVITHA Gamez History of Present Illness History of Present Illness Rosemary Nelson is a 77 year old female who sustained a mechanical fall at home when she tripped over her dog. She had immediate pain in her right hip she was seen in our emergency room where a CT scan revealed a fracture of her pelvis. She was in significant pain and is admitted and admitted for pain management and mcc placement Medications/Allergies Home Medications Medication Instructions Recorded Confirmed Last Taken Type calcium carbonate 500 mg-vitamin 1 tab PO .two times day #60 tabs 09/06/21 06/11/22 06/09/22 18:00 Rx D3 15 mcg (600 unit) tablet (Os-Zak 500 + D3) azelastine 137 mcg (0.1 %) nasal 1 spray intranasal BID #30 mL 03/16/22 06/11/22 06/10/22 18:00 Rx spray aerosol fluticasone propionate 50 2 spray intranasal DAILY #16 grams 03/16/22 06/11/22 06/10/22 08:00 Rx mcg/actuation nasal spray,suspension (Flonase Allergy Relief) losartan 100 mg tablet 100 mg PO .at bedtime #30 tabs 03/16/22 06/11/22 06/09/22 20:00 Rx thyroid (pork) 30 mg tablet See Rx Instructions PO .COMPLEX 03/16/22 06/11/22 06/10/22 03:00 Rx ([place] Thyroid) #60 tabs magnesium gluconate 27 mg 27 mg PO BID #60 tabs 05/16/22 06/11/22 06/10/22 20:00 Rx magnesium (500 mg) tablet (Mag-G) Tylenol Arthritis 1 tab PO Q8H 06/11/22 06/11/22 06/10/22 18:00 History nortriptyline 10 mg capsule 10 mg PO DAILY 06/11/22 06/11/22 06/10/22 08:00 History Allergies Allergy/AdvReac Type Severity Reaction Status Date / Time meperidine [From Demerol] AdvReac Severe gastric Verified 06/08/22 17:12 upset and headache Opioids - Morphine Analogues AdvReac Severe gastric Verified 06/08/22 17:12 upset and headache Current Medications Generic Name Dose Route Start Last Admin Trade Name Freq PRN Reason Stop Dose Admin Atorvastatin Calcium 20 mg 06/11/22 09:00 06/12/22 08:22 Atorvastatin 40 Mg Tablet PO 20 mg DAILY KITA Administration Enoxaparin Sodium 40 mg 06/10/22 23:45 06/11/22 23:16 Enoxaparin 40 Mg/0.4 Ml Syringe SUBCUT 40 mg Q24H KITA Administration Ketorolac Tromethamine 15 mg 06/10/22 23:38 06/11/22 00:07 Ketorolac 30 Mg/Ml Inj IVP 06/15/22 23:37 15 mg Q8H PRN Administration MODERATE PAIN Lidocaine 1 patch 06/11/22 09:00 06/12/22 08:22 Lidocaine 5% Patch TOPICAL 1 patch [id number] KITA Administration Losartan Potassium 100 mg 06/11/22 21:00 06/11/22 21:40 Losartan 50 Mg Tablet PO Not Given BEDTIME KITA Ondansetron HCl 4 mg 06/10/22 23:38 06/11/22 01:50 Ondansetron 2 Mg/Ml Sdv 2 Ml IVP 4 mg Q8H PRN Administration vomiting, or N/V if npo Pantoprazole Sodium 40 mg 06/11/22 09:00 06/12/22 08:[address] 40 Mg Tablet PO 40 mg DAILY KITA Administration Tizanidine HCl 2 mg 06/11/22 01:43 06/11/22 01:49 Tizanidine 4 Mg Tablet PO 2 mg TID PRN Administration SPASMS Venlafaxine HCl 37.5 mg 06/11/22 09:00 06/12/22 08:23 Venlafaxine Er (24hr) 37.5 Mg Capsule PO 37.5 mg DAILY KITA Administration PFSH Acute PFSH: Medical History Altered gait Dry eye syndrome, bilateral Enrolled in chronic care management Environmental and seasonal allergies Essential hypertension Gout Hx of migraine headaches 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 Neuropathic pain Osteopenia Small vessel disease, cerebrovascular Surgical History History of arthroscopic knee surgery Left knee History of cervical spinal surgery History of hand surgery Left 4th metacarpal fracture History of hysterectomy with oophorectomy Status post left foot surgery after fracture Status post surgical removal of acromioclavicular joint 2019 Family History Mother Stroke Hypothyroidism Hypertension Father Heart disease Sister Cancer Lung and breast Other CAD (coronary artery disease) Diabetes Social History Smoking and tobacco status: former smoker Second hand smoke exposure: No Smoking risk assessment/counseling performed?: No Alcohol intake: never Desire information about alcohol rehabilitation?: No Counseling given: No Desire information about substance/drug rehabilitation?: No Counseling given: No Adopted: No Caregiver/support person: No Lives independently: Yes Household members: significant other Housing: House Marital status: Life Partner service: No Current occupational status: unemployed History of recent travel: No Current gender identity: Female Vitals/I&O/Wt Last Vital Signs Temp 97.6 F 06/12/22 16:00 Pulse 90 06/12/22 16:00 Resp 18 06/12/22 16:00 BP 149/91 06/12/22 16:00 Pulse Ox 97 06/12/22 16:00 O2 Del Method 06/12/22 16:00 06/12/22 06/12/22 06/12/22 06:59 14:59 22:59 Output Total 350 / 350 Balance -350 / -170 Weight last 48 hrs Weight 133 lb Weight 120 lb Physical Exam Narrative: Supine in bed in no apparent distress. She answers questions appropriately. She complains of pain only in her right inguinal hip Her hip can be flexed to 60 degrees externally rotated 20 degrees and internally rotrated 10 degrees with pain at extremes of motion She has a palpable right dorsalis pedis pulse Reflexes central toes without any motor deficit Urinary Catheter Management: Null: Cath Placed During This Visit: yes Reason for Continuing Indwelling Catheter: Required Immobilization for Trauma or Surgery or Anesthesia Urinary Catheter Date of Insertion: 06/10/22 Urinary Catheter Time of Insertion: 23:29 Data 06/12/22 03:49 06/12/22 03:49 Xray Ortho: My impression: Radiographs of the right femur dated 06/10/2022 including the hip are reviewed which are unremarkable Other CT: My impression: I reviewed his CT scan of the right hip dated 06/10/2022. The patient appears to have a low anterior wall acetabular fracture with an associated nondisplaced ischial fracture of the right hip. A&P Assessment and plan (1) Acetabulum fracture, right: (2) Closed fracture of pubic ramus: Rosemary has a very low fracture of the anterior wall. The fracture is below the level of the fovea and is stable for full weightbearing. She can continue with full weightbearing. She has quite a bit of discomfort and mcc transfer may be best. I can follow-up with her in my clinic with plain x-rays in 1 month. Coding Level of Care Code Acute Code for [facility] Diagnoses Acetabulum fracture, right S32.401A Closed fracture of pubic ramus S32.599A
[2022-06-12 20:00] VITALS: BP 169/89; PULSE 82; RESP 16; TEMP 36.5; O2SAT 95
[2022-06-12 20:44] VITALS: BP 173/93
[2022-06-12] MEDS: losartan 50 mg Tablet 100 MG PO (20:44)
[2022-06-13] VITALS (8 sets, daily range): BP systolic 109–179; BP diastolic 63–97; PULSE 76–90; RESP 16–17; TEMP 36.4–36.7; O2SAT 92–96
[2022-06-13] MEDS: enoxaparin 40 mg/0.4 mL Syringe SUBCUT ×2 (00:04→23:52)
--- NOTE | 2022-06-13 04:51 | PC.NURSE ---
Pt pulled pressley catheter out with balloon intact. Pt is agitated at this time, will reassess for placement of new pressley when pt calms down.
[2022-06-13] MEDS: amlodipine 10 mg Tablet PO (08:59)
[2022-06-13] MEDS: atorvastatin 40 mg Tablet 20 MG PO (08:59)
[2022-06-13] MEDS: venlafaxine ER (24HR) 37.5 mg Capsule PO (08:59)
[2022-06-13] MEDS: pantoprazole DR 40 mg Tablet PO (08:59)
[2022-06-13] MEDS: lidocaine 5% Patch 1 PATCH TOPICAL (09:20)
--- NOTE | 2022-06-13 09:46 | XRR_ITS ---
PROCEDURE INFORMATION: Exam: XR Chest Exam date and time: 06/13/2022 10:09 AM Age: 77 years old Clinical indication: Shortness of breath; Additional info: SOB TECHNIQUE: Imaging protocol: Radiologic exam of the chest. Views: 1 view. COMPARISON: CR (CHEST, ) 06/10/2022 8:34 PM FINDINGS: Lungs: Unremarkable. No consolidation. Pleural spaces: Unremarkable. No pleural effusion. No pneumothorax. Heart/Mediastinum: Unremarkable. No cardiomegaly. Bones/joints: Metallic pins are seen in the proximal right humerus. Kyphoplasty is seen in the L1 vertebral body . XR/XR chest 1V portable [id number] IMPRESSION: 1. No acute findings. 2. Kyphoplasty L1 vertebral body. 3. Metallic pins right humeral head
--- NOTE | 2022-06-13 09:49 | ECG_ITS ---
[facility] Test Date: 2022-06-13 Pat Name: Rosemary Nelson Department: Room: 266 Gender: Female Entry Level Finance: : 1945 Requested By: Hosea Hill Order Number: [id number] Elizabeth MD: Renate Belle M.D. Measurements Intervals [place] Rate: 95 P: 35 ND: 195 QRS: 31 QRSD: 71 T: 19 QT: 354 QTc: 445 Interpretive Statements SINUS RHYTHM POSSIBLE LEFT ATRIAL ENLARGEMENT [-0.1mV P-WAVE IN V1/V2] Compared to ECG 06/10/2022 20:47:27 First degree AV block no longer present Electronically Signed On 06-13-2022 16:02:45 TOBACCO WEIGHER by Renate Belle M.D. [id number]
[2022-06-13] MEDS: levothyroxine 100 mcg SDV 30 MCG IVP (10:05)
[2022-06-13 10:16] LABS: Basophils % 0.2 %; Eosinophils % 0.6 %; Hematocrit 36.1 % (37.0-47.0); Hemoglobin 11.8 g/dL (11.5-15.3); Lymphocytes # 1.1 10^3/uL (0.8-4.8); Lymphocytes % 19.7 %; Mean Corpuscular HGB Conc 32.7 g/dL (30.0-36.0); Mean Corpuscular Volume 94.8 fl (81-99); Mean Platelet Volume 9.3 fL (7.4-10.4); Monocytes # 0.3 10^3/uL (0.2-0.9); Monocytes % 5.3 %; Neutrophils # 3.94 10^3/uL (1.8-7.7); Nucleated Red Blood Cells % 0 %; Platelet Count 212 10^3/cmm (130-400); Red Blood Count 3.81 10^6/uL (4.1-5.3); Red Cell Distribution Width 13.3 % (12.1-15.1); White Blood Count 5.3 10^3/uL (4.0-10.0)
--- NOTE | 2022-06-13 10:28 | PM.PN ---
Subjective Subjective: Patient was seen this morning, she had episodes of confusion throughout the night, she ripped out her Null catheter last night, with bulb intact she feels that she feels groggy she feels drugged, she tells me that the oxycodone made her feel groggy, so did the hydrocodone, no fevers, no chills, no nausea, no vomiting, she does not know why she feels this way she continues to have hip pain she feels that were trying to drug her but she knows that is not true, she keeps feeling this way no fevers, no chills, no cough, no shortness of breath, no dysuria Vitals/I&O/Wt Last Vital Signs Temp 97.5 F L 06/13/22 08:00 Pulse 82 06/13/22 08:00 Resp 16 06/13/22 08:00 BP 179/93 06/13/22 08:00 Pulse Ox 92 06/13/22 08:00 O2 Del Method 06/13/22 04:00 06/12/22 06/13/22 06/13/22 22:59 06:59 14:59 Intake Total 240 / 240 240 / 240 Output Total 500 / 500 Balance -260 / -260 240 / 240 Physical Exam Const: COMMON NORMALS: no acute distress and patient oriented x3 Eye: COMMON NORMALS: Equal, round and reactive pupils present and EOMs intact bilaterally PUPIL: Yes Equal, round and reactive pupils present Lymph: LYMPHATIC: no lymphadenopathy noted Resp: COMMON NORMALS: normal respiratory effort, No retractions, No use of accessory muscles and clear to auscultation bilaterally AUSCULTATION: clear to auscultation bilaterally Cardio: COMMON NORMALS: regular rate, regular rhythm, S1 normal heart sound present and S2 normal heart sound present RATE: regular rate RHYTHM: regular rhythm HEART SOUNDS: S1 normal heart sound present and S2 normal heart sound present GI: COMMON NORMALS: Normal to inspection, nondistended, normoactive bowel sounds present and non-tender Extremity: COMMON NORMALS: no pedal edema Neuro: COMMON NORMALS: patient oriented x3, CN's II-XII intact bilaterally, moves all extremities, no focal motor deficits and no sensory deficits noted Psych: COMMON NORMALS: mental status grossly normal Urinary Catheter Management: Null: Cath Placed During This Visit: yes Reason for Continuing Indwelling Catheter: Accurate Measurement of Urinary Output in Critically Ill Patients Urinary Catheter Date of Insertion: 06/10/22 Urinary Catheter Time of Insertion: 23:29 Data 06/13/22 10:10 06/12/22 03:49 Micro: Microbiology 06/13/22 10:10 Blood Culture - Preliminary Blood SPECIMEN COLLECTED 06/13/22 10:10 Blood Culture - Preliminary Blood SPECIMEN COLLECTED A&P Assessment and plan (1) Closed fracture of pubic ramus: (2) Acetabulum fracture, right: (3) Intractable pain: (4) Acute encephalopathy: Plan Acute encephalopathy -CT head negative -Possibly medication reaction from opiates, hydrocodone, Percocet -Possibly myxedema coma, has not received levothyroxine, check TSH, free T3, free T4, give 30 mg of IV push levothyroxine -CBC, CMP, mag, Phos, troponin series, BMP, repeat UA, chest x-ray, Pro-Zak, CRP, repeat blood cultures -Neurochecks, aspiration precautions, NIH stroke scale -We will monitor [facility] findings were discussed by ER physician Simon, recommended conservative management for now. Management with as needed with Ultram Chart lists a more opioid allergy, however she has tolerated doses of morphine and fentanyl today. Additional lidocaine patch. weat bearning as tolerated, pt/ot She is alert oriented x3, she can follow commands, but her responses are a bit delayed, she does space out, although she denies falling hitting her head, ct head negative, likely effect of Ultram PT OT eval, mobility per Ortho recommendations. Weightbearing as tolerated Attestations Medical Necessity Statement*: Patient requires hospitalization for encephalopathy, acetabular fracture, Coding Level of Care Code Acute Code for [facility] Diagnoses Closed fracture of pubic ramus S32.599A Acetabulum fracture, right S32.401A Intractable pain R52 Acute encephalopathy G93.40
--- NOTE | 2022-06-13 10:28 | PC.SOCIAL ---
IMM update IMM updated with patient. Verbalized an understanding. Copy pg 2 provided. Initialled, dated, timed, and placed in chart.
[2022-06-13 10:35] LABS: Ammonia 17 umol/L (11-51)
[2022-06-13 10:37] LABS: Troponin(5th) Baseline 41 ng/L (0-10)
[2022-06-13 10:48] LABS: Free T4 Free Thyroxine 0.55 ng/dL (0.82-1.77); Procalcitonin 0.09 ng/mL (0-0.5); T3 Free 1.1 PG/ML (2.0-4.4); Thyroid Stimulating Hormone 8.97 uIU/mL (0.27-4.20)
[2022-06-13 10:59] LABS: Alanine Aminotransferase 17 U/L (0-33); Albumin Level 3.9 g/dL (3.5-5.2); Alkaline Phosphatase 76 U/L (35-105); Anion Gap 19.3 (5-19); Aspartate Amino Transferase 25 U/L (0-32); Blood Urea Nitrogen 18 mg/dL (8-23); C Reactive Protein 42.9 mg/L (0.0-4.9); Calcium 8.9 mg/dL (8.5-10.5); Carbon Dioxide 21 mmol/L (22-29); Chloride 98 mmol/L (98-107); Creatine Phosphokinase 303 U/L (26-192); Creatinine Clr Calc Pharmacy 48.7815; Globulin 2.8 g/dL (1.3-4.6); Glucose 102 mg/dL (65-115); Magnesium 1.9 mg/dL (1.7-2.3); Osmolality Calculated 280 mOsm/kg (285-295); Phosphorus 3.1 mg/dL (2.5-4.5); Potassium 4.3 mmol/L (3.5-5.1); Sodium 134 mmol/L (136-145); Total Bilirubin 0.5 mg/dL (0.15-1.2); Total Protein 6.7 g/dL (6.6-8.7)
--- NOTE | 2022-06-13 11:49 | ECG_ITS ---
[facility] Test Date: 2022-06-13 Pat Name: Rosemary Nelson Department: Room: 266 Gender: Female Instructor Weaving: : 1945 Requested By: Hosea Hill Order Number: [id number] Elizabeth MD: Renate Belle M.D. Measurements Intervals [place] Rate: 85 P: 41 TN: 194 QRS: 18 QRSD: 77 T: 40 QT: 361 QTc: 429 Interpretive Statements SINUS RHYTHM POSSIBLE LEFT ATRIAL ENLARGEMENT [-0.1mV P-WAVE IN V1/V2] LOW QRS VOLTAGE IN PRECORDIAL LEADS [QRS DEFLECTION < 1.0 mV IN CHEST LEADS] Compared to ECG 06/13/2022 10:07:23 Low QRS voltage now present Electronically Signed On 06-13-2022 16:08:11 REGISTERED OCCUPATIONAL THERAPIST by Renate Belle M.D. [id number]
[2022-06-13 12:24] LABS: Troponin 5 2HR 40.13 ng/L (0-10)
[2022-06-13 12:26] LABS: Troponin 5 2HR Delta -0.87 ABS# (0-10)
--- NOTE | 2022-06-13 15:11 | ECG_ITS ---
[facility] Test Date: 2022-06-13 Pat Name: Rosemary Nelson Department: Room: 266 Gender: Female Nurse Discharge Planner: : 1945 Requested By: Hosea Hill Order Number: [id number] Elizabeth MD: Renate Belle M.D. Measurements Intervals [place] Rate: 84 P: 48 IA: 185 QRS: 19 QRSD: 80 T: 36 QT: 363 QTc: 430 Interpretive Statements SINUS RHYTHM POSSIBLE LEFT ATRIAL ENLARGEMENT [-0.1mV P-WAVE IN V1/V2] LOW QRS VOLTAGE IN PRECORDIAL LEADS [QRS DEFLECTION < 1.0 mV IN CHEST LEADS] Compared to ECG 06/13/2022 12:20:16 No significant changes Electronically Signed On 06-13-2022 16:07:01 MIDDLE SCHOOL COMBINATION TEACHER by Renate Belle M.D. [id number]
[2022-06-13 16:39] LABS: Add Urine Culture? Yes; Add Urine Microscopic? YES; Bacteria Urine TRACE /hpf; Bilirubin Urine Neg (Negative); Blood Urine 3+ (Negative); Glucose Urine UA Norm (Normal); Ketones Urine 2+ (Negative); Leukocyte Esterase Urine Trace (Negative); Nitrate Urine Negative (Negative); Protein Urine Trace (Negative); RBC Urine 25-40 /hpf (0-2); Squamous Epithelial Cell Urine RARE /hpf (0-5); Urine Appearance Clear (CLEAR); Urine Color Yellow (Yellow); Urobilinogen Urine Neg (Negative); WBC Urine 0-4 /hpf (0-5); pH Urine 5 (5-7)
[2022-06-13 16:48] LABS: Troponin 5 6HR 43.68 ng/L (0-10)
[2022-06-13 16:49] LABS: Troponin 5 6HR Delta 2.68 ng/L (0-12)
[2022-06-13] MEDS: losartan 50 mg Tablet 100 MG PO (22:19)
[2022-06-13] MEDS: acetaminophen 325 mg Tablet 650 MG PO (23:53)
[2022-06-14] MEDS: tizanidine 4 mg Tablet 2 MG PO ×2 (00:30→21:38)
[2022-06-14] MEDS: ketorolac 30 mg/mL INJ 15 MG IVP (02:30)
[2022-06-14 02:45] LABS: Free T4 Free Thyroxine 0.59 ng/dL (0.82-1.77); Thyroid Stimulating Hormone 19.15 uIU/mL (0.27-4.20)
[2022-06-14 03:54] VITALS: BP 129/77; PULSE 67; RESP 16; TEMP 36.4; O2SAT 96
[2022-06-14] MEDS: liothyronine 5 mcg Tablet PO (07:57)
[2022-06-14 08:00] VITALS: BP 151/76; PULSE 74; RESP 18; TEMP 36.6; O2SAT 96
--- NOTE | 2022-06-14 08:50 | MR_ITS ---
WS: [id number] EXAMINATION: MR hip RT wo con* [id number] ORDER DATE: 06/14/2022 9:20 AM COMPARISON: None. HISTORY: persitent severe right hip pain CONTRAST: CT hip June 10, 2022 TECHNIQUE: Coronal STIR of the Pelvis. Coronal proton density, coronal T1, axial T2 fat sat, axial T1 , sagittal T2 fat sat, and sagittal T1 performed of the hip. After contrast, axial T1 fat sat, coron al T1 fat sat, and sagittal T1 fat sat were performed. FINDINGS: Some images degraded by motion. Null catheter in place. Fracture of the RIGHT inferior pubic ramus with overlapping fracture fragments. Associated surroundin g soft tissue edema. Again seen is the irregular anterior acetabular wall fracture with associated radha ne marrow and surrounding soft tissue edema. Tiny joint effusion. Additional edema extends into the R IGHT pubic symphysis with additional small nondisplaced fracture also seen on the recent CT. Normal bone marrow signal in the RIGHT femoral head and femoral neck. No evidence of avascular necros is. No femoral head or neck fractures.Partially evaluated diffuse edema involving the RIGHT sacral al a compatible with posttraumatic fracture or insufficiency fractures. Small amount of edema in the LEF T upper sacrum. MR/MR hip RT wo con* [id number] IMPRESSION: Some images degraded by motion artifact. 1. Normal bone marrow signal in the RIGHT femoral head and neck. No RIGHT femo ral head or neck fractures. 2. Diffuse bone marrow edema involving the RIGHT sacral ala partially evaluate d on this examination compatible with posttraumatic or insufficiency fractures. This can be further evaluated MRI of the sacrum. Small amount of bone marrow e quoc in the dorsal LEFT upper sacrum. 3. Stable fractures involving the RIGHT anterior acetabulum, RIGHT inferior pu bic ramus, and superior pubic ramus at the pubic symphysis. Associated soft tis cheri and bone marrow edema in this locations. 4. Tiny RIGHT joint effusion. 5. Edema in the surrounding RIGHT hip musculature and iliacus 6. Null catheter in place.
--- NOTE | 2022-06-14 08:50 | MR_ITS ---
WS: [id number] MRI OF THE SACRUM WITHOUT GADOLINIUM ENHANCEMENT. INDICATION: Hip low back pain. Recent fall. TECHNIQUE: Coronal T1, coronal STIR, sagittal T2 fat sat, axial T2 fat sat. FINDINGS: Diffuse bone marrow edema involving the RIGHT sacral ala. Surrounding presacral soft tissue edema. Small amount of edema in the LEFT upper and dorsal sacrum. Edema with cortical step-off involving the midline sacrum at S2-S3 compatible with posttraumatic frac ture. Soft tissue edema along the RIGHT peripelvic soft tissues. Additional edema extends into the RIGHT il iac wing likely posttraumatic. MR/MR sacrum wo con* [id number] IMPRESSION: Some images degraded by patient motion. 1. Posttraumatic fracture involving the midline sacrum at the S2-S3 level with visualized fracture line and cortical irregularity. Associated soft tissue yvette ma. 2. Diffuse edema in the RIGHT greater than LEFT sacral ala compatible with ins ufficiency fractures. This is worse involving the RIGHT sacrum. 3. Diffuse soft tissue edema involving the RIGHT peripelvic soft tissues.
[2022-06-14] MEDS: HYDROcodone-acetaminophen 5-325 mg Tablet 0.5 TAB PO ×2 (10:41→20:16)
[2022-06-14] MEDS: gabapentin 300 mg Capsule PO ×2 (10:42→20:16)
[2022-06-14] MEDS: pantoprazole DR 40 mg Tablet PO (10:42)
[2022-06-14] MEDS: atorvastatin 40 mg Tablet 20 MG PO (10:42)
[2022-06-14] MEDS: venlafaxine ER (24HR) 37.5 mg Capsule PO (10:43)
[2022-06-14] MEDS: amlodipine 10 mg Tablet PO (10:43)
--- NOTE | 2022-06-14 10:54 | P.PN_ITS ---
Subjective Subjective: Patient was seen this morning, she tells me that she is completely miserable, she has severe right hip pain severe back pain, inability to move her herself to pain, she had no sleep last night, she is very hesitant about using pain medication because it alters her mentation, but she tells me that she was absolutely miserable overnight, she does not know how she can function, she was walking with a walker before her fall, she was not able to tolerate physical therapy, yesterday, not able to bear weight according to physical therapist due to severe pain, she is alert to person, to place, not to time, she is quite sleepy and groggy this morning, but able to follow commands Vitals/I&O/Wt Last Vital Signs Temp 97.9 F 06/14/22 08:00 Pulse 74 06/14/22 08:00 Resp 18 06/14/22 08:00 BP 151/76 06/14/22 08:00 Pulse Ox 96 06/14/22 08:00 O2 Del Method 06/14/22 03:54 06/13/22 06/14/22 06/14/22 22:59 06:59 14:59 Output Total 550 / 550 Balance -550 / 170 Physical Exam Const: COMMON NORMALS: no acute distress ORIENTATION/CONSCIOUSNESS: Yes awake, Yes oriented to person and Yes oriented to place Resp: COMMON NORMALS: normal respiratory effort, No retractions, No use of accessory muscles and clear to auscultation bilaterally AUSCULTATION: clear to auscultation bilaterally Cardio: COMMON NORMALS: regular rate, regular rhythm, S1 normal heart sound present and S2 normal heart sound present RATE: regular rate RHYTHM: reg ular rhythm HEART SOUNDS: S1 normal heart sound present and S2 normal heart sound present GI: COMMON NORMALS: Normal to inspection, nondistended, normoactive bowel sounds present and non-tender Extremity: COMMON NORMALS: no pedal edema Neuro: SENSORIUM/ORIENTATION: Yes oriented to person and Yes oriented to place Urinary Catheter Management: Null: Cath Placed During This Visit: yes, but has since been removed by the nurse Reason for Continuing Indwelling Catheter: Acute Urinary Retention or Obstruction Urinary Catheter Date of Insertion: 06/13/22 Urinary Catheter Time of Insertion: 15:40 Date Urinary Catheter Removed: 06/13/22 Time Urinary Catheter Discontinued: 13:00 Data 06/13/22 10:10 06/13/22 10:10 Micro: Microbiology 06/13/22 10:10 Blood Culture - Preliminary Blood NEGATIVE TO DATE 06/13/22 10:10 Blood Culture - Preliminary Blood NEGATIVE TO DATE A&P Assessment and plan (1) Closed fracture of pubic ramus: (2) Acetabulum fracture, right: (3) Intractable pain: (4) Acute encephalopathy: (5) NSTEMI (non-ST elevated myocardial infarction): (6) Severe hypothyroidism: (7) Urinary tract infection: Plan Continues to have intractable pain -Inability to bear weight -Unable to sleep -She is also quite sensitive to narcotics, becomes encephalopathic, and groggy -Due to continued intractable pain, inability to bear weight, I am when to do an MRI of her right hip including her sacrum -I Keri start her on gabapentin 300 g every 12 hours -Continue Zanaflex -Ultram 50 mg every 6 hours was not enough she continues to have severe breakthrough pain -She has failed morphine, Percocet, hydrocodone did work a bit better but she became quite groggy will do half a tablet of 5-325 to see if that can help with her pain -I am worried if I discharged her preemptively to the [facility] they will send her right back due to severe pain, -Before her fall she was ambulating with a walker and now she is not able to walk or bear weight this is quite a poor prognostic indicator and concerning, as we want her to ambulate -We will continue to do physical therapy as inpatient better pain control further work-up Severe hypothyroidism, I do not think that she has myxedema coma but TSH continues to elevate, free T3, free T4 are low, work-up and evaluation and interventions as below Acute encephalopathy -CT head negative -Possibly medication reaction from opiates, hydrocodone, Percocet -Possibly myxedema coma, has not received levothyroxine TSH at 20, low free T3, low free T4, will increase levothyroxine to 75 mcg did not receive dose this morning, due to persistently elevating TSH we will give her 50 mcg of IV levothyroxine with 5 of Cytomel recheck TSH free T3, free T4 tomorrow -NSTEMI, no chest pain complaints, serial EKGs or troponins telemetry monitoring, monitor for chest pain -Neurochecks, aspiration precautions, NIH stroke scale -We will monitor mentation closely Possible UTI, start Rocephin CT findings were discussed by ER physician Ortho, recommended conservative management for now. Management with as needed with Ultram Chart lists a more opioid allergy, however she has tolerated doses of morphine and fentanyl today. Additional lidocaine patch. weat bearning as tolerated, pt/ot She is alert oriented x3, she can follow commands, but her responses are a bit delayed, she does space out, although she denies falling hitting her head, ct head negative, likely effect of Ultram PT OT eval, mobility per Ortho recommendations. Weightbearing as tolerated Attestations Medical Necessity Statement*: Patient requires hospitalization for right acetabular fracture, sacral insufficiency fractures, intractable pain, encephalopathy, in addition severe hypothyroidism, NSTEMI Coding Level of Care Code Acute Code for Chg Fwd Diagnoses Closed fracture of pubic ramus S32.599A Acetabulum fracture, right S32.401A Intractable pain R52 Acute encephalopathy G93.40 NSTEMI (non-ST elevated myocardial infarction) I21.4 Severe hypothyroidism E03.9 Urinary tract infection N39.0
[2022-06-14] MEDS: lidocaine 5% Patch 1 PATCH TOPICAL (11:27)
[2022-06-14] MEDS: cefTRIAXone 1,000 MG in sodium chloride 0.9% (plus) 50 ML 100 MG IV (11:34)
[2022-06-14] MEDS: levothyroxine 100 mcg SDV 50 MCG IVP (11:51)
[2022-06-14 12:00] VITALS: BP 159/83; PULSE 79; TEMP 36.4; O2SAT 96
[2022-06-14 16:00] VITALS: BP 119/67; PULSE 70; RESP 18; TEMP 36.4; O2SAT 90
--- NOTE | 2022-06-14 17:34 | PC.OT ---
OT tx attempted 3x today. Pt off the floor for MRI at first attempt. Later in the day pt fatigued and sleeping heavily on 2nd and 3rd attempts. OT tx to be resumed in the a.m.
--- NOTE | 2022-06-14 18:19 | PC.NURSE ---
Pt currently resting in bed. VSS and is A0x3. Pt has been more alert and less confused. Transfers one assist to the bedside commode. Pain seems to be under control. Room is clean and clutter free and call light is in reach. All patient concerns/questions addressed. No new needs at this time.
[2022-06-14 19:53] VITALS: BP 137/84; PULSE 89; RESP 18; TEMP 36.7; O2SAT 96
[2022-06-14 20:16] VITALS: BP 137/84
[2022-06-14] MEDS: losartan 50 mg Tablet 100 MG PO (20:16)
[2022-06-14] MEDS: enoxaparin 40 mg/0.4 mL Syringe SUBCUT (22:54)
[2022-06-15] VITALS: BP 108/66; PULSE 81; RESP 18; TEMP 36.7
[2022-06-15 02:51] LABS: Free T4 Free Thyroxine 0.59 ng/dL (0.82-1.77); T3 Free 1.2 PG/ML (2.0-4.4); Thyroid Stimulating Hormone 16.75 uIU/mL (0.27-4.20)
[2022-06-15 03:42] VITALS: BP 145/78; PULSE 79; RESP 19; TEMP 36.4; O2SAT 95
[2022-06-15] MEDS: levothyroxine 75 mcg Tablet PO (04:59)
[2022-06-15] MEDS: HYDROcodone-acetaminophen 5-325 mg Tablet 0.5 TAB PO (04:59)
[2022-06-15 07:09] VITALS: BP 134/75; PULSE 83; RESP 18; TEMP 36.9; O2SAT 97
--- NOTE | 2022-06-15 08:09 | P.DS_ITS ---
Discharge Providers Date of Admission: 06/10/22 23:10 Date of Discharge: June 15, 2022 Attending Provider at Admission: Aminta Gordon MD Attending Provider at Discharge: Hosea Hill MD Primary Care Provider: KAVITHA Gamez Diagnoses at Discharge Discharge Diagnosis (1) Closed fracture of pubic ramus: Status: Acute (2) Acetabulum fracture, right: Status: Acute (3) Intractable pain: Status: Acute (4) Acute encephalopathy: Status: Acute (5) NSTEMI (non-ST elevated myocardial infarction): Status: Acute (6) Severe hypothyroidism: Status: Acute (7) Urinary tract infection: Status: Acute (8) Sacral insufficiency fracture: Status: Acute Reason for Visit Reason for Visit: FALL/CP Hospital Course Hospital Course Rosemary Nelson is a 77 year old female presenting to the emergency room with a mechanical fall after she tripped over her dog at home.? No complaints of chest pain dyspnea palpitations syncope leading up to the event. Hip CT is suggestive of nondisplaced fracture of the right anterior acetabular wall and fracture of the right inferior pubic ramus and pubic symphysis.? She is in significant pain at this time. Patient was admitted to [facility] for right acetabular fracture, pubic rami closed fracture, orthopedics was consulted, recommended conservative management weightbearing as tolerated, due to intractable pain, inability to ambulate, MRI of her hip and sacrum was ordered results as below 1.? Normal bone marrow signal in the RIGHT femoral head and neck. No RIGHT femoral head or neck fractures. 2.? Diffuse bone marrow edema involving the RIGHT sacral ala partially evaluated on this examination compatible with posttraumatic or insufficiency fractures. This can be further evaluated MRI of the sacrum. Small amount of bone marrow edema in the dorsal LEFT upper sacrum. 3.? Stable fractures involving the RIGHT anterior acetabulum, RIGHT inferior pubic ramus, and superior pubic ramus at the pubic symphysis. Associated soft tissue and bone marrow edema in this locations. 4.? Tiny RIGHT joint effusion. 5.? Edema in the surrounding RIGHT hip musculature and iliacus 6.? Null catheter in place. 1.? Posttraumatic fracture involving the midline sacrum at the S2-S3 level with visualized fracture line and cortical irregularity. Associated soft tissue edema. 2.? Diffuse edema in the RIGHT greater than LEFT sacral ala compatible with insufficiency fractures. This is worse involving the RIGHT sacrum. 3.? Diffuse soft tissue edema involving the RIGHT peripelvic soft tissues. -MRI seems to suggest also sacral insufficiency fractures -Continued medical management, weightbearing as tolerated, conservative therapy -Overall patient's clinical condition improved -Due to her encephalopathy with narcotics, etc. on low-dose hydrocodone 0.5 p.o. every 6 hours as needed for pain -Gabapentin 300 mg twice daily for neuropathic pain -Tizanidine for muscle spasms -Continue PTG OT at a local detention patient also had acute encephalopathy during the hospitalization, likely multifactorial from opiate reaction, and severe hypothyroidism. It was difficult to find a medication regimen that would work for her, eventually gabapentin, tizanidine, and low-dose hydrocodone seemed to do the trick, discharge to a local detention. In terms of patient's intractable pain, difficult to manage as the patient had acute encephalopathy as above, solution found as above Patient also has severe hypothyroidism during her hospitalization, requiring IV replacement with Cytomel, no significant evidence of myxedema coma. Overall she clinic improved, discharged with levothyroxine 75 mcg once daily, recheck TSH in 2 weeks, TSH on discharge 16.75, free T4 0.59 and free T3 1.2 if she has worsening mentation, continue to monitor TSH. She had a UTI discharge and secondary her urine culture is pending Physical Exam Const: COMMON NORMALS: no acute distress and patient oriented x3 Resp: COMMON NORMALS: normal respiratory effort, No retractions, No use of accessory muscles and clear to auscultation bilaterally AUSCULTATION: clear to auscultation bilaterally Cardio: COMMON NORMALS: regular rate, regular rhythm, S1 normal heart sound present and S2 normal heart sound present RATE: regular rate RHYTHM: reg ular rhythm HEART SOUNDS: S1 normal heart sound present and S2 normal heart sound present GI: COMMON NORMALS: Normal to inspection, nondistended, normoactive bowel sounds present Extremity: COMMON NORMALS: no pedal edema Neuro: COMMON NORMALS: patient oriented x3 Psych: COMMON NORMALS: mental status grossly normal Urinary Catheter Management: Null: Cath Placed During This Visit: yes, but has since been removed by the nurse Reason for Continuing Indwelling Catheter: Acute Urinary Retention or Obstruction Urinary Catheter Date of Insertion: 06/13/22 Urinary Catheter Time of Insertion: 15:40 Date Urinary Catheter Removed: 06/13/22 Time Urinary Catheter Discontinued: 13:00 Discharge Data Studies Completed and Pending Completed Studies During Hospitalization Category Date Time Status CT head wo con* [id number] Routine Cat Scan 06/11/22 12:[address] hip RT wo con* [id number] Stat Cat Scan 06/10/22 21:31 Completed XR chest 1V portable [id number] Routine Exams 06/13/22 09:46 Completed XR chest 1V portable [id number] Stat Exams 06/10/22 20:25 Completed XR femur RT min 2V* [id number] Stat Exams 06/10/22 20:32 Completed MR hip RT wo con* [id number] Routine MRI 06/14/22 08:50 Completed MR sacrum wo con* [id number] Routine MRI 06/14/22 08:50 Completed Pending at discharge Category Date Time Status Blood Culture Stat Lab 06/13/22 10:10 Results Free T4 Free Thyroxine AM LABS Lab 06/16/22 04:00 Ordered Free T4 Free Thyroxine AM LABS Lab 06/17/22 04:00 Ordered T3 Free AM LABS Lab 06/16/22 04:00 Ordered T3 Free AM LABS Lab 06/17/22 04:00 Ordered TSH [Thyroid Stimulating Hormone] AM LABS Lab 06/16/22 04:00 Ordered TSH [Thyroid Stimulating Hormone] AM LABS Lab 06/17/22 04:00 Ordered Urine Culture Routine Lab 06/13/22 15:39 Received Radiology Impressions Femur X-Ray 06/10/22 20:32 IMPRESSION: No acute findings. Hip CT 06/10/22 21:31 IMPRESSION: 1. Nondisplaced fracture right anterior acetabular wall. 2. Fracture of the right inferior pubic ramus and pubic symphysis Head CT 06/11/22 12:42 IMPRESSION: 1. No acute intracranial abnormality. 2. Moderate diffuse cerebral atrophy. Chest X-Ray 06/13/22 09:46 IMPRESSION: 1. No acute findings. 2. Kyphoplasty L1 vertebral body. 3. Metallic pins right humeral head Hip MRI 06/14/22 08:50 IMPRESSION: Some images degraded by motion artifact. 1. Normal bone marrow signal in the RIGHT femoral head and neck. No RIGHT femoral head or neck fractures. 2. Diffuse bone marrow edema involving the RIGHT sacral ala partially evaluated on this examination compatible with posttraumatic or insufficiency fractures. This can be further evaluated MRI of the sacrum. Small amount of bone marrow edema in the dorsal LEFT upper sacrum. 3. Stable fractures involving the RIGHT anterior acetabulum, RIGHT inferior pubic ramus, and superior pubic ramus at the pubic symphysis. Associated soft tissue and bone marrow edema in this locations. 4. Tiny RIGHT joint effusion. 5. Edema in the surrounding RIGHT hip musculature and iliacus 6. Null catheter in place. Sacrum/Coccyx MRI 06/14/22 08:50 IMPRESSION: Some images degraded by patient motion. 1. Posttraumatic fracture involving the midline sacrum at the S2-S3 level with visualized fracture line and cortical irregularity. Associated soft tissue edema. 2. Diffuse edema in the RIGHT greater than LEFT sacral ala compatible with insufficiency fractures. This is worse involving the RIGHT sacrum. 3. Diffuse soft tissue edema involving the RIGHT peripelvic soft tissues. Laboratory Results WBC 5.3 10^3/uL (4.0-10.0) 06/13/22 10:10 RBC 3.81 10^6/uL (4.1-5.3) L 06/13/22 10:10 Hgb 11.8 g/dL (11.5-15.3) 06/13/22 10:10 Hct 36.1 % (37.0-47.0) L 06/13/22 10:10 MCV 94.8 fl (81-99) 06/13/22 10:10 MCH 31.0 pg (28.0-34.0) 06/13/22 10:10 MCHC 32.7 g/dL (30.0-36.0) 06/13/22 10:10 RDW 13.3 % (12.1-15.1) 06/13/22 10:10 Plt Count 212 10^3/cmm (130-400) 06/13/22 10:10 MPV 9.3 fL (7.4-10.4) 06/13/22 10:10 Neut % (Auto) 74.0 % 06/13/22 10:10 Lymph % (Auto) 19.7 % 06/13/22 10:10 Sully % (Auto) 5.3 % 06/13/22 10:10 Eos % (Auto) 0.6 % 06/13/22 10:10 Baso % (Auto) 0.2 % 06/13/22 10:10 Neut # (Auto) 3.94 10^3/uL (1.8-7.7) 06/13/22 10:10 Lymph # (Auto) 1.1 10^3/uL (0.8-4.8) 06/13/22 10:10 Sully # (Auto) 0.3 10^3/uL (0.2-0.9) 06/13/22 10:10 Eos # (Auto) 0.0 10^3/uL (0.0-0.8) 06/13/22 10:10 Baso # (Auto) 0.0 10^3/uL (0.0-0.1) 06/13/22 10:10 Nucleated RBC % (auto) 0 % 06/13/22 10:10 Nucleated RBCs # 0.0 /100WBC 06/13/22 10:10 PT 14.50 SECONDS (12.1-14.9) 06/10/22 21:20 INR 1.10 (0.8-1.2) 06/10/22 21:20 APTT 25.9 SECONDS (23.9-36.7) 06/10/22 21:20 Sodium 134 mmol/L (136-145) L 06/13/22 10:10 Potassium 4.3 mmol/L (3.5-5.1) 06/13/22 10:10 Chloride 98 mmol/L (98-107) 06/13/22 10:10 Carbon Dioxide 21 mmol/L (22-29) L 06/13/22 10:10 Anion Gap 19.3 (5-19) H 06/13/22 10:10 BUN 18 mg/dL (8-23) 06/13/22 10:10 Creatinine 0.7 mg/dL (0.5-0.9) 06/13/22 10:10 GFR Calculation Not Reportable 06/13/22 10:10 Glucose 102 mg/dL (65-115) 06/13/22 10:10 Calculated Osmolality 280 mOsm/kg (285-295) L 06/13/22 10:10 Calcium 8.9 mg/dL (8.5-10.5) 06/13/22 10:10 Phosphorus 3.1 mg/dL (2.5-4.5) 06/13/22 10:10 Magnesium 1.9 mg/dL (1.7-2.3) 06/13/22 10:10 Total Bilirubin 0.5 mg/dL (0.15-1.2) 06/13/22 10:10 AST 25 U/L (0-32) 06/13/22 10:10 ALT 17 U/L (0-33) 06/13/22 10:10 Alkaline Phosphatase 76 U/L (35-105) 06/13/22 10:10 Ammonia 17 umol/L (11-51) 06/13/22 10:10 Creatine Kinase 303 U/L (26-192) H 06/13/22 10:10 Troponin T Baseline 41 ng/L (0-10) H 06/13/22 10:10 Troponin T 120 Minute 40.13 ng/L (0-10) H 06/13/22 11:59 Delta Troponin T -0.87 ABS# (0-10) L 06/13/22 11:59 Troponin T Hi Sens 6Hr 43.68 ng/L (0-10) H 06/13/22 16:05 Troponin T Hi Sens 6Hr Delta 2.68 ng/L (0-12) 06/13/22 16:05 C-Reactive Protein 42.9 mg/L (0.0-4.9) H 06/13/22 10:10 Total Protein 6.7 g/dL (6.6-8.7) 06/13/22 10:10 Albumin 3.9 g/dL (3.5-5.2) 06/13/22 10:10 Globulin 2.8 g/dL (1.3-4.6) 06/13/22 10:10 Procalcitonin 0.09 ng/mL (0-0.5) 06/13/22 10:10 TSH 16.75 uIU/mL (0.27-4.20) H 06/15/22 01:45 Free T4 0.59 ng/dL (0.82-1.77) L 06/15/22 01:45 Free T3 1.2 PG/ML (2.0-4.4) L 06/15/22 01:45 Random Cortisol 16.30 ug/dL (2.47-19.5) 06/13/22 10:10 Urine Color Yellow (Yellow) 06/13/22 15:39 Urine Appearance Clear (CLEAR) 06/13/22 15:39 Urine pH 5 (5-7) 06/13/22 15:39 Ur Specific [place] 1.020 (1.005-1.030) 06/13/22 15:39 Urine Protein Trace (Negative) 06/13/22 15:39 Urine Glucose (UA) Norm (Normal) 06/13/22 15:39 Urine Ketones 2+ (Negative) H 06/13/22 15:39 Urine Blood 3+ (Negative) H 06/13/22 15:39 Urine Nitrate Negative (Negative) 06/13/22 15:39 Urine Bilirubin Neg (Negative) 06/13/22 15:39 Urine Urobilinogen Neg mg/dL (Negative) 06/13/22 15:39 Ur Leukocyte Esterase Trace (Negative) H 06/13/22 15:39 Urine RBC 25-40 /hpf (0-2) H 06/13/22 15:39 Urine WBC 0-4 /hpf (0-5) H 06/13/22 15:39 Ur Squamous Epith Cells Rare /hpf (0-5) 06/13/22 15:39 Amorphous Sediment Not Reportable 06/13/22 15:39 Urine Bacteria Trace /hpf (NONE) 06/13/22 15:39 Vitals Last Vital Signs Temp 98.5 F 06/15/22 07:09 Pulse 83 06/15/22 07:09 Resp 18 06/15/22 07:09 BP 134/75 06/15/22 07:09 Pulse Ox 97 06/15/22 07:09 O2 Del Method 06/15/22 07:09 Discharge Plan Discharge Patient Disposition: Xfer SNF Condition: Stable Prescriptions: New hydrocodone-acetaminophen 5-325 mg Tablet 0.5 tab PO Q6H PRN (Reason: Moderate Pain) 7 Days Qty: 14 0RF venlafaxine 37.5 mg Capsule,Extended Release 24hr 37.5 mg PO DAILY 30 Days Qty: 3 0RF tizanidine 4 mg Tablet 2 mg PO TID PRN (Reason: Spasms) 7 Days Qty: 11 0RF levothyroxine 75 mcg Tablet 75 mcg PO QAM 30 Days Qty: 30 0RF cefdinir 300 mg capsule 300 mg PO BID 4 Days Qty: 8 0RF atorvastatin 40 mg Tablet 20 mg PO DAILY 30 Days Qty: 30 0RF amlodipine 10 mg Tablet 10 mg PO DAILY 30 Days Qty: 30 0RF gabapentin 300 mg Capsule 300 mg PO Q12H 30 Days Qty: 60 0RF Continued calcium carbonate-vitamin D3 [Os-Zak 500 + D3] 500 mg-15 mcg (600 unit) tablet 1 tab PO .two times day Qty: 60 2RF losartan 100 mg tablet 100 mg PO .at bedtime Qty: 30 2RF fluticasone propionate [Flonase Allergy Relief] 50 mcg/actuation spray,suspension 2 spray intranasal DAILY Qty: 16 2RF Rx Instructions: administer into each nostril azelastine 137 mcg (0.1 %) aerosol,spray 1 spray intranasal BID Qty: 30 2RF Rx Instructions: administer into each nostril magnesium gluconate [Mag-G] 27 mg magnesium (500 mg) tablet 27 mg PO BID Qty: 60 2RF Tylenol Arthritis 1 tab PO Q8H nortriptyline 10 mg capsule 10 mg PO DAILY Discontinued thyroid (pork) [Winger Thyroid] 30 mg tablet See Rx Instructions PO .COMPLEX Qty: 60 2RF Rx Instructions: 60mg 4 days and 30mg 3 days PO; Discharge Orders: Discharge Order (Routine); Ordered 06/15/22 Ordered By: Hosea Hill Referrals: [facility] [Outside] Dunia Padilla, [employer] [Primary Care Provider] - 1-3 days William Rosas MD [Physician] - 07/18/22 8:15 am Discharge Diet: Cardiac Discharge Activity: Resume usual activity Patient Instructions: Opioid Safety, Pain Management Activity Restrictions/Additional Instructions: -*Levothyroxine dose has been increased to 75 mcg once daily, please recheck TSH in 2 weeks -Cefdinir stenting for UTI -Please use hydrocodone sparingly for pain, low-dose, as it tends to cause confusion -Gabapentin for neuropathic pain -Continue PTOT -Follow-up with primary care provider 1 week Discharge Attestations Time Spent in Discharge Care*: greater than 30 min Quality Metrics Clinical Quality Measures [ No reported AMI, CVA or VTE this stay] Coding Level of Care Code Acute Code for Chg Fwd Diagnoses Closed fracture of pubic ramus S32.599A Acetabulum fracture, right S32.401A Intractable pain R52 Acute encephalopathy G93.40 NSTEMI (non-ST elevated myocardial infarction) I21.4 Severe hypothyroidism E03.9 Urinary tract infection N39.0 Sacral insufficiency fracture M84.48XA
[2022-06-15] MEDS: gabapentin 300 mg Capsule PO (09:44)
[2022-06-15] MEDS: venlafaxine ER (24HR) 37.5 mg Capsule PO (09:44)
[2022-06-15] MEDS: pantoprazole DR 40 mg Tablet PO (09:44)
[2022-06-15] MEDS: atorvastatin 40 mg Tablet 20 MG PO (09:44)
[2022-06-15] MEDS: amlodipine 10 mg Tablet PO (09:44)
[2022-06-15] MEDS: lidocaine 5% Patch 1 PATCH TOPICAL (09:49)
--- NOTE | 2022-06-15 09:56 | PC.SOCIAL ---
IMM update IMM updated with patient. Verbalized an understanding. Copy PG 2 provided. Initialled, dated, timed, and placed in chart.
[2022-06-15 10:42] LABS: SARS Covid-2 Antigen negative (Negative)
[2022-06-15 12:00] VITALS: BP 110/74; PULSE 68; RESP 18; TEMP 36.6; O2SAT 96
--- NOTE | 2022-06-15 14:33 | PC.NURSE ---
Pt Belongings: Pt wallet given to pt upon discharge
== END 2022-06-15 14:36 | disposition skilled nursing facility (03) | DRG 535 ==
LOC: ER 23:17 → MEDSURG 23:32
PROVIDERS: Admitting Provider Student in an Organized Health Care Education/Training Program; Emergency Provider Emergency Medicine; PCP Nurse Practitioner; Visit Provider Family Medicine
DX: S32.591A Other specified fracture of right pubis, initial encounter for closed fracture (principal); G93.41 Metabolic encephalopathy; S32.491A Other specified fracture of right acetabulum, initial encounter for closed fracture; N39.0 Urinary tract infection, site not specified; W01.0XXA Fall on same level from slipping, tripping and stumbling without subsequent striking against object, initial encounter; E03.9 Hypothyroidism, unspecified; I10 Essential (primary) hypertension; H81.09 Meniere's disease, unspecified ear; M10.9 Gout, unspecified; G62.9 Polyneuropathy, unspecified; Z87.891 Personal history of nicotine dependence
CPT/HCPCS: 36415; 51702; 70450; 71045; 72148; 73552; 73700; 73721; 80053; 81001; 81003; 82140; 82533; 82550; 83735; 84100; 84145; 84439; 84443; 84481; 84484; 85025; 85610; 85730; 86140; 87040; 87077; 87086; 87186; 87426; 93005; 96372; 96374; 96375; 96376; 97116; 97161; 97165; 97530; 97535; 99285; J0696; J1650; J1885; J2270; J2405; J3010; J3490

== ENCOUNTER → 2022-09-13 10:50 | Outpatient (BNVA) | payer MEDICARE, OTHER, SELFPAY | PROVIDERS: PCP Registered Nurse; Visit Provider Registered Nurse | DX: E03.9 Hypothyroidism, unspecified (principal); I10 Essential (primary) hypertension | CPT/HCPCS: 80053; 80061; 84443; 85025 ==

== ENCOUNTER → 2022-10-06 10:19 | Outpatient (BNVA) | payer MEDICARE, OTHER, SELFPAY | PROVIDERS: PCP Registered Nurse; Visit Provider Podiatrist Foot & Ankle Surgery | DX: L98.9 Disorder of the skin and subcutaneous tissue, unspecified (principal); S90.819A Abrasion, unspecified foot, initial encounter; M21.612 Bunion of left foot; X58.XXXA Exposure to other specified factors, initial encounter | CPT/HCPCS: 11055; 73630; 99203 ==

== ENCOUNTER → 2022-10-13 09:42 | Outpatient (BNVA) | payer MEDICARE, OTHER, SELFPAY | PROVIDERS: PCP Registered Nurse; Visit Provider Podiatrist Foot & Ankle Surgery | DX: L98.9 Disorder of the skin and subcutaneous tissue, unspecified (principal); M21.612 Bunion of left foot; S90.821A Blister (nonthermal), right foot, initial encounter; X58.XXXA Exposure to other specified factors, initial encounter | CPT/HCPCS: 99213 ==

== ENCOUNTER → 2022-11-03 10:10 | Outpatient (BNVA) | payer MEDICARE, OTHER, SELFPAY | PROVIDERS: PCP Registered Nurse; Visit Provider Podiatrist Foot & Ankle Surgery | DX: L98.9 Disorder of the skin and subcutaneous tissue, unspecified (principal); S90.812A Abrasion, left foot, initial encounter; S89.82XA Other specified injuries of left lower leg, initial encounter; X58.XXXA Exposure to other specified factors, initial encounter; M21.612 Bunion of left foot | CPT/HCPCS: 99213 ==

== ENCOUNTER → 2022-12-05 12:05 | Outpatient (BNVA) | payer MEDICARE, OTHER, SELFPAY | PROVIDERS: PCP Registered Nurse; Visit Provider Podiatrist Foot & Ankle Surgery | DX: L60.0 Ingrowing nail (principal) | CPT/HCPCS: 11750 ==

== ENCOUNTER → 2022-12-19 09:57 | Outpatient (BNVA) | payer MEDICARE, OTHER, SELFPAY | PROVIDERS: PCP Registered Nurse; Visit Provider Podiatrist Foot & Ankle Surgery | DX: L60.0 Ingrowing nail (principal) | CPT/HCPCS: 99213 ==

== ENCOUNTER → 2022-12-27 10:35 | Outpatient (BNVA) | payer MEDICARE, OTHER, SELFPAY | PROVIDERS: PCP Registered Nurse; Visit Provider Registered Nurse | DX: E03.8 Other specified hypothyroidism (principal); E06.3 Autoimmune thyroiditis; I10 Essential (primary) hypertension | CPT/HCPCS: 81000; 84443; 85025 ==

== ENCOUNTER → 2022-12-29 10:15 | Outpatient (BNVA) | payer MEDICARE, OTHER, SELFPAY | PROVIDERS: PCP Registered Nurse; Visit Provider Registered Nurse | DX: R53.83 Other fatigue (principal) | CPT/HCPCS: 81000; 87086 ==

== ENCOUNTER 2023-04-07 15:20 | Emergency (ER) | payer MEDICARE, OTHER, SELFPAY ==
[2023-04-07 15:24] VITALS: BP 193/108; PULSE 85; RESP 16; TEMP 36.6; O2SAT 97; BMI 19.2
--- NOTE | 2023-04-07 15:36 | ECG_ITS ---
[facility] Test Date: 2023-04-07 Pat Name: Rosemary Nelson Department: Room: Gender: Female Survey Chief: : 1945 Requested By: Des Aly Order Number: [id number] Elizabeth MD: Vandana Sarkar M.D. Measurements Intervals [place] Rate: 80 P: 52 HI: 193 QRS: 6 QRSD: 81 T: 44 QT: 362 QTc: 419 Interpretive Statements Significant baseline artifact SINUS RHYTHM LEFT ATRIAL ENLARGEMENT [-0.15mV P-WAVE IN V1/V2] Compared to ECG 06/13/2022 15:11:28 No significant changes Electronically Signed On 04-08-2023 13:46:16 ASSISTANT COMMUNITY MANAGER by Vandana Sarkar M.D. [id number]
--- NOTE | 2023-04-07 15:36 | XRR_ITS ---
PROCEDURE INFORMATION: Exam: XR Chest Exam date and time: 04/07/2023 4:16 PM Age: 78 years old Clinical indication: Cough TECHNIQUE: Imaging protocol: Radiologic exam of the chest. Views: 1 view. COMPARISON: CR XR chest 1V portable [id number] 06/13/2022 10:09 AM FINDINGS: Lungs: Unremarkable. No consolidation. Pleural spaces: Unremarkable. No pleural effusion. No pneumothorax. Heart/Mediastinum: Unremarkable. No cardiomegaly. Bones/joints: Unchanged surgical material in the right humeral head. XR/XR chest 1V portable [id number] IMPRESSION: No acute disease.
--- NOTE | 2023-04-07 15:36 | W.ED.WEAKNES ---
HPI - Weakness General: Chief complaint: Weakness Stated complaint: WEAKNESS Time Seen by Provider: 04/07/23 15:35 History of Present Illness: 78-year-old female presents emergency department with complaints of increased fatigue and generalized malaise worsening over the previous 4 days. She states that she has been sick with a chest cold over that same duration of time. She states that she has had decreased urinary output and when she does have to produce urine is very dark and foul-smelling. She states that she also has a sore throat that is a raw scratchy 3 out of 4 type pain. She denies chest pain. She does appear to be acutely weak and frail. 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 Neuropathic pain Osteopenia Small vessel disease, cerebrovascular Surgical History History of arthroscopic knee surgery Left knee History of cervical spinal surgery History of hand surgery Left 4th metacarpal fracture History of hysterectomy with oophorectomy Status post left foot surgery after fracture Status post surgical removal of acromioclavicular joint 2019 Family History Mother Stroke Hypothyroidism Hypertension Father Heart disease Sister Cancer Lung and breast Other CAD (coronary artery disease) Diabetes Social History Smoking and tobacco/nicotine status: never used tobacco/nicotine Second hand smoke exposure: No Alcohol intake: never Substance/Drug Use: never Adopted: No Caregiver/support person: No Lives independently: No Household members: significant other Housing: House Marital status: Life Partner service: No Current occupational status: unemployed Sexually active: Yes Do you think of yourself as: Straight/Heterosexual Current gender identity: Female Physical Exam Narrative: EXAM NARRATIVE: Constitutional: the patient appears well nourished and with normal development. Vital signs reviewed as documented. Frail and ill-appearing HENMT: Normocephalic, atraumatic. Extermal ears with normal appearance without drainage. Nose without drainage, normal appearance. Mucus membranes moist. Moderate erythema to the posterior oropharynx Neck is supple, No jugular venous distension, trachea is midline, no appreciable carotid bruits. No lymphadenopathy. No meningeal signs. Flexion, extension and lateral rotation is without pain. Eyes: Pupils are equal, round, reactive to light and accommodation. No scleral icterus. Extra-ocular movement are intact. Thorax is symmetrical and with equal rise and fall with respirations. Resp: Lungs are clear to auscultation. No wheezes, rales, crackles or ronchi at present. Cardio: Regular rate and rhythm. Positive S1, S2. No appreciable murmurs, rubs or gallops. GI: Abdominal exam reveals normal bowel sounds to all quadrants. No organomegaly. No obvious palpable masses noted. No hepatomegally appreciated. Soft, nontender to palpation. Extremity: Extremities are non-edematous and both femoral and pedal pulses are 2+ and equal bilaterally. Moves all extremities well, sensation in all extremities. Neuro: Alert and oriented x4, person, place, time and situation. Cranial nerves II through XII are grossly intact, there is no focal neurological deficits that I can appreciate at present. Motor strength in the upper and lower extremities are equal and bilateral 5/5. Psych: Cooperative, calm, normal thought process, appropriate judgment. Skin: No lesions, rashes. No gross abnormalities noted. Back: Symmetrical, no obvious deformity, No CVA tenderness Course Vital Signs: Vital signs: Vital Signs Temperature 97.8 F 04/07/23 15:24 Pulse Rate 85 04/07/23 15:24 Respiratory Rate 16 04/07/23 15:24 Blood Pressure 193/108 04/07/23 15:24 Pulse Oximetry 97 04/07/23 15:24 Oxygen Delivery Me thod Room Air 04/07/23 15:24 MDM - Weakness Medical Decision Making Physical exam completed, I will obtain a CBC, CMP, cardiac enzymes as well as twelve-lead EKG will obtain a chest x-ray and influenza and COVID swabs. Medical Records I reviewed the patient's medical records. Lab Data I reviewed the patient's lab results. 04/07/23 15:53 04/07/23 15:53 Radiology Impressions Chest X-Ray 04/07/23 15:36 IMPRESSION: No acute disease. Laboratory Results WBC 5.59 10^3/uL (3.29-11.43) 04/07/23 15:53 RBC 4.27 10^6/uL (3.85-5.65) 04/07/23 15:53 Hgb 13.30 g/dL (11.27-16.99) 04/07/23 15:53 Hct 40.3 % (36-47) 04/07/23 15:53 MCV 94.4 fl (85-98) 04/07/23 15:53 MCH 31.1 pg (27-33) 04/07/23 15:53 MCHC 33.0 g/dL (30-55) 04/07/23 15:53 RDW 12.1 % (12.1-15.1) 04/07/23 15:53 Plt Count 154 10^3/cmm (157-399) L 04/07/23 15:53 MPV 9.4 fL (7.4-10.4) 04/07/23 15:53 Neut % (Auto) 61.4 % 04/07/23 15:53 Lymph % (Auto) 25.8 % 04/07/23 15:53 [place] % (Auto) 10.2 % 04/07/23 15:53 Eos % (Auto) 2.0 % 04/07/23 15:53 Baso % (Auto) 0.2 % 04/07/23 15:53 Neut # (Auto) 3.44 10^3/uL (1.8-7.7) 04/07/23 15:53 Lymph # (Auto) 1.4 10^3/uL (0.8-4.8) 04/07/23 15:53 [place] # (Auto) 0.6 10^3/uL (0.2-0.9) 04/07/23 15:53 Eos # (Auto) 0.1 10^3/uL (0.0-0.8) 04/07/23 15:53 Baso # (Auto) 0.0 10^3/uL (0.0-0.1) 04/07/23 15:53 Nucleated RBC % (auto) 0 % 04/07/23 15:53 Nucleated RBCs # 0.0 /100WBC 04/07/23 15:53 Sodium 138 mmol/L (136-145) 04/07/23 15:53 Potassium 3.8 mmol/L (3.5-5.1) 04/07/23 15:53 Chloride 101 mmol/L (98-107) 04/07/23 15:53 Carbon Dioxide 22 mmol/L (22-29) 04/07/23 15:53 Anion Gap 18.8 (5-19) 04/07/23 15:53 BUN 16 mg/dL (8-23) 04/07/23 15:53 Creatinine 0.6 mg/dL (0.5-0.9) 04/07/23 15:53 GFR Calculation Not Reportable 04/07/23 15:53 Glucose 84 mg/dL (65-115) 04/07/23 15:53 Calculated Osmolality 286 mOsm/kg (285-295) 04/07/23 15:53 Calcium 9.2 mg/dL (8.5-10.5) 04/07/23 15:53 Total Bilirubin 0.4 mg/dL (0.15-1.2) 04/07/23 15:53 AST 61 U/L (0-32) H 04/07/23 15:53 ALT 27 U/L (0-33) 04/07/23 15:53 Alkaline Phosphatase 66 U/L (35-105) 04/07/23 15:53 Troponin T Baseline 44 ng/L (0-10) H 04/07/23 15:53 Troponin T 120 Minute 46.53 ng/L (0-10) H 04/07/23 17:53 Delta Troponin T 2.53 ABS# (0-10) 04/07/23 17:53 NT-Pro-B Natriuret Pep 404 pg/mL (0-450) 04/07/23 15:53 Total Protein 7.2 g/dL (6.6-8.7) 04/07/23 15:53 Albumin 4.0 g/dL (3.5-5.2) 04/07/23 15:53 Globulin 3.2 g/dL (1.3-4.6) 04/07/23 15:53 Urine Color Yellow (Yellow) 04/07/23 16:35 Urine Appearance Clear (CLEAR) 04/07/23 16:35 Urine pH 6 (5-7) 04/07/23 16:35 Ur Specific [place] 1.015 (1.005-1.030) 04/07/23 16:35 Urine Protein Neg (Negative) 04/07/23 16:35 Urine Glucose (UA) Norm (Normal) 04/07/23 16:35 Urine Ketones 2+ (Negative) H 04/07/23 16:35 Urine Blood 2+ (Negative) H 04/07/23 16:35 Urine Nitrate Negative (Negative) 04/07/23 16:35 Urine Bilirubin Neg (Negative) 04/07/23 16:35 Urine Urobilinogen Norm mg/dL (Negative) 04/07/23 16:35 Ur Leukocyte Esterase Negative (Negative) 04/07/23 16:35 Urine RBC 0-4 /hpf (0-2) H 04/07/23 16:35 Urine WBC None /hpf (0-5) 04/07/23 16:35 Ur Squamous Epith Cells None /hpf (0-5) 04/07/23 16:35 Amorphous Sediment Not Reportable 04/07/23 16:35 Urine Bacteria None /hpf (NONE) 04/07/23 16:35 Hyaline Casts 0-4 /lpf H 04/07/23 16:35 Influenza Type A Ag negative (Negative) 04/07/23 15:56 Influenza Type B Ag negative (Negative) 04/07/23 15:56 SARS-CoV-2 Ag (Rapid) positive (Negative) H 04/07/23 15:56 All radiology interpretation(s) finalized by discharge Discharge Plan Discharge Patient Disposition: Home Clinical Impression: COVID-19, Hypertension Condition: Stable Prescriptions: New dexamethasone 6 mg tablet 6 mg PO DAILY Qty: 7 0RF albuterol sulfate 90 mcg/actuation HFA aerosol inhaler 2 inh inhalation Q6H PRN (Reason: shortness of breath or wheezing) Qty: 8.5 0RF benzonatate 200 mg capsule 200 mg PO TID Qty: 30 0RF No Action magnesium gluconate [Mag-G] 27 mg magnesium (500 mg) tablet 27 mg PO BID Qty: 60 5RF [place] Thyroid 30 mg tablet See Rx Instructions PO .COMPLEX Qty: 60 5RF Rx Instructions: 60mg 4 days and 30mg 3 days PO; (DME) lumbar support brace See Rx Instructions .Route .MEDSUPPLY Qty: 1 0RF Rx Instructions: As directed calcium carbonate-vitamin D3 [Os-Zak 500 + D3] 500 mg-15 mcg (600 unit) tablet 1 tab PO .two times day Qty: 60 2RF azelastine 137 mcg (0.1 %) aerosol,spray 1 spray intranasal BID Qty: 30 2RF Rx Instructions: administer into each nostril fluticasone propionate [Flonase Allergy Relief] 50 mcg/actuation spray,suspension 2 spray intranasal DAILY Qty: 16 2RF Rx Instructions: administer into each nostril Tylenol Arthritis 1 tab PO Q8H PRN (Reason: Pain) acetaminophen 500 mg Tablet 500 mg PO Q6H PRN (Reason: Pain) Discharge Orders: Discharge ED (Routine); Ordered 04/07/23 Ordered By: Des Aly Referrals: Trenton Mckeon FNP [Primary Care Provider] - Discharge Diet: Advance as tolerated Discharge Activity: Resume usual activity Patient Instructions: Opioid Safety, Pain Management Activity Restrictions/Additional Instructions: Activity Restrictions/Additional Instructions: Thank you for choosing [facility] for your healthcare needs today. Please realize that you were seen in the Emergency Department and that we are providing you with an emergency medical screening exam and this may not be complete and all inclusive of all the testing and or medical work-up that you may need to determine your ailment or severity of your illness. It is very important that you follow-up as instructed with your Primary care provider or Specialist for additional evaluation and to discuss your medical treatment plan. You may return to the Emergency Department should you have concerns or if your condition changes or worsens in any way. Coding Level of Care Code ED Services Mgr for Bharat Baxter
[2023-04-07 16:25] LABS: Basophils % 0.2 %; Eosinophils # 0.1 10^3/uL (0.0-0.8); Hematocrit 40.3 % (36-47); Lymphocytes # 1.4 10^3/uL (0.8-4.8); Lymphocytes % 25.8 %; Mean Corpuscular Hemoglobin 31.1 pg (27-33); Mean Corpuscular Volume 94.4 fl (85-98); Mean Platelet Volume 9.4 fL (7.4-10.4); Monocytes # 0.6 10^3/uL (0.2-0.9); Monocytes % 10.2 %; Neutrophils # 3.44 10^3/uL (1.8-7.7); Neutrophils % 61.4 %; Nucleated Red Blood Cells % 0 %; Platelet Count 154 10^3/cmm (157-399); Red Blood Count 4.27 10^6/uL (3.85-5.65); Red Cell Distribution Width 12.1 % (12.1-15.1); White Blood Count 5.59 10^3/uL (3.29-11.43)
[2023-04-07 16:47] LABS: Troponin(5th) Baseline 44 ng/L (0-10)
[2023-04-07 16:51] LABS: Alanine Aminotransferase 27 U/L (0-33); Alkaline Phosphatase 66 U/L (35-105); Anion Gap 18.8 (5-19); Aspartate Amino Transferase 61 U/L (0-32); Blood Urea Nitrogen 16 mg/dL (8-23); Calcium 9.2 mg/dL (8.5-10.5); Carbon Dioxide 22 mmol/L (22-29); Chloride 101 mmol/L (98-107); Globulin 3.2 g/dL (1.3-4.6); Glucose 84 mg/dL (65-115); NT Pro B Type Natriuretic Pept 404 pg/mL (0-450); Osmolality Calculated 286 mOsm/kg (285-295); Potassium 3.8 mmol/L (3.5-5.1); Sodium 138 mmol/L (136-145); Total Bilirubin 0.4 mg/dL (0.15-1.2); Total Protein 7.2 g/dL (6.6-8.7)
[2023-04-07 17:11] LABS: Influenza A by IFA negative (Negative); Influenza B by IFA negative (Negative)
[2023-04-07 17:13] LABS: SARS Covid-2 Antigen positive (Negative)
[2023-04-07 17:14] LABS: Add Urine Microscopic? YES; Bilirubin Urine Neg (Negative); Blood Urine 2+ (Negative); Glucose Urine UA Norm (Normal); Ketones Urine 2+ (Negative); Leukocyte Esterase Urine Negative (Negative); Nitrate Urine Negative (Negative); Protein Urine Neg (Negative); Specific Gravity, Urine 1.015 (1.005-1.030); Urine Appearance Clear (CLEAR); Urine Color Yellow (Yellow); Urobilinogen Urine Norm (Negative); pH Urine 6 (5-7)
[2023-04-07 17:15] LABS: Add Urine Culture? No; Hyaline Casts Urine 0-4 /lpf; RBC Urine 0-4 /hpf (0-2)
[2023-04-07] MEDS: dexamethasone 4 mg Tablet 6 MG PO (17:28)
[2023-04-07] MEDS: sodium chloride 0.9% 1,000 ML 999 ML IV (17:28)
--- NOTE | 2023-04-07 17:43 | ECG_ITS ---
[facility] Test Date: 2023-04-07 Pat Name: Rosemary Nelson Department: Room: Gender: Female Business Development Engineer: : 1945 Requested By: Des Aly Order Number: [id number] Elizabeth MD: Vandana Sarkar M.D. Measurements Intervals [place] Rate: 89 P: 50 [place]: 193 QRS: 5 QRSD: 82 T: 48 QT: 336 QTc: 410 Interpretive Statements Significant baseline artifact SINUS RHYTHM LEFT ATRIAL ENLARGEMENT [-0.15mV P-WAVE IN V1/V2] POSSIBLE RIGHT VENTRICULAR CONDUCTION DELAY [RSR (QR) IN V1/V2] Compared to ECG 04/07/2023 15:54:12 No significant changes Electronically Signed On 04-08-2023 13:55:14 SHEET METAL ERECTOR by Vandana Sarkar M.D. [id number]
[2023-04-07] MEDS: hyDRALAzine 20 mg/mL INJ 1 mL IVP (18:06)
[2023-04-07 18:27] LABS: Troponin 5 2HR 46.53 ng/L (0-10)
[2023-04-07 18:28] LABS: Troponin 5 2HR Delta 2.53 ABS# (0-10)
== END 2023-04-07 18:29 | disposition home or self-care (01) ==
PROVIDERS: Emergency Provider Internal Medicine; PCP Registered Nurse
DX: U07.1 COVID-19 (principal); I10 Essential (primary) hypertension
CPT/HCPCS: 36415; 71045; 80053; 81001; 83880; 84484; 85025; 87426; 87804; 93005; 93010; 96361; 96374; 99285; J0360; J7030; J8540

== ENCOUNTER 2023-04-24 09:46 | Emergency (ER) | payer MEDICARE, OTHER, SELFPAY ==
--- NOTE | 2023-04-24 09:47 | XR_ITS ---
WS: [id number] Exam: XR ribs RT mn 3V w CXR1V [id number] Date/Time of Exam: 04/24/2023 9:48 AM Reason For Exam: pain No acute RIGHT rib fracture noted. The lungs are fully expanded and clear. Normal cardiomediastinal s ilhouette. Rotator cuff anchoring screws in the RIGHT humeral head. Signs of vertebroplasty involving a single upper lumbar vertebra. IMPRESSION: 1. No acute RIGHT rib fracture or pneumothorax. No acute cardiopulmonary process.
[2023-04-24 09:57] VITALS: BP 165/87; PULSE 88; RESP 18; TEMP 36.4; O2SAT 97; BMI 18.3
--- NOTE | 2023-04-24 09:58 | CT_ITS ---
WS: [id number] CT ABDOMEN PELVIS TECHNIQUE: Noncontrast CT of the abdomen and pelvis with coronal and sagittal reformatted images. CLINICAL INFORMATION: Abdominal pain COMPARISON: None. DLP: 337.[address] scans at [facility] use at least one of these dose optimization techniques: automated e xposure control; mA and/or kV adjustment per patient size (includes targeted exams where dose is matc hed to clinical indication); or iterative reconstruction. FINDINGS: Bibasilar atelectasis with slight patchy infiltrates. Recommend correlation for pneumonia. Noncontras t liver is normal. Normal noncontrast spleen. Normal caliber abdominal aorta. Diverticulosis. No evid ence of acute diverticulitis. No evidence of high-grade small large bowel obstruction. Tiny fat-conta ining umbilical hernia. Adrenal glands are normal. No hydronephrosis in either kidney. Prior kyphopla sty changes L3. IMPRESSION: 1. Bibasilar atelectasis RIGHT greater than LEFT with slight patchy infiltrates. Recommend correlati on for pneumonia. 2. No visualized rib fractures. 3. Sigmoid diverticulosis. No evidence of acute radiculitis. 4. Prior kyphoplasty changes L3. 5. No other acute findings.
--- NOTE | 2023-04-24 10:00 | ECG_ITS ---
[facility] Test Date: 2023-04-24 Pat Name: Rosemary Nelson Department: Room: Gender: Female Clinical Associate: : 1945 Requested By: Montana Barajas Order Number: [id number] Elizabeth MD: Flako Babcock M.D. Measurements Intervals [place] Rate: 88 P: 53 [place]: 191 QRS: 43 QRSD: 73 T: 30 QT: 342 QTc: 415 Interpretive Statements SINUS RHYTHM LEFT ATRIAL ENLARGEMENT [-0.15mV P-WAVE IN V1/V2] POSSIBLE RIGHT VENTRICULAR CONDUCTION DELAY [RSR (QR) IN V1/V2] NONSPECIFIC ST & T-WAVE ABNORMALITY Compared to ECG 04/07/2023 17:27:52 T-wave abnormality now present Electronically Signed On 04-24-2023 10:24:06 EMPLOYEE COMMUNICATIONS INTERN by Flako Babcock M.D. [id number]
[2023-04-24 10:13] LABS: Basophils % 0.3 %; Eosinophils % 0.3 %; Hematocrit 34.9 % (36-47); Lymphocytes # 1.4 10^3/uL (0.8-4.8); Lymphocytes % 14.1 %; Mean Corpuscular Hemoglobin 30.7 pg (27-33); Mean Corpuscular Volume 93.3 fl (85-98); Monocytes # 0.7 10^3/uL (0.2-0.9); Monocytes % 6.7 %; Neutrophils # 7.73 10^3/uL (1.8-7.7); Neutrophils % 78.2 %; Nucleated Red Blood Cells % 0 %; Platelet Count 211 10^3/cmm (157-399); Red Blood Count 3.74 10^6/uL (3.85-5.65); Red Cell Distribution Width 12.4 % (12.1-15.1); White Blood Count 9.88 10^3/uL (3.29-11.43)
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
[2023-04-24 10:40] LABS: Alanine Aminotransferase 10 U/L (0-33); Albumin Level 3.6 g/dL (3.5-5.2); Alkaline Phosphatase 73 U/L (35-105); Aspartate Amino Transferase 15 U/L (0-32); Blood Urea Nitrogen 31 mg/dL (8-23); Calcium 9.3 mg/dL (8.5-10.5); Carbon Dioxide 22 mmol/L (22-29); Chloride 104 mmol/L (98-107); Creatinine Clr Calc Pharmacy 42.6803; Globulin 3.5 g/dL (1.3-4.6); Glucose 76 mg/dL (65-115); Lipase 16 U/L (13-60); Osmolality Calculated 293 mOsm/kg (285-295); Sodium 139 mmol/L (136-145); Total Bilirubin 0.7 mg/dL (0.15-1.2); Total Protein 7.1 g/dL (6.6-8.7)
[2023-04-24 10:45] LABS: Anion Gap 17.3 (5-19); Potassium 4.3 mmol/L (3.5-5.1)
== END 2023-04-24 12:18 | disposition home or self-care (01) ==
PROVIDERS: Emergency Provider Family Medicine; PCP Registered Nurse
DX: R09.1 Pleurisy (principal); J18.9 Pneumonia, unspecified organism; I10 Essential (primary) hypertension
CPT/HCPCS: 71101; 74176; 80053; 83690; 85025; 93005; 99285

== ENCOUNTER 2023-04-27 13:07 | Emergency (ER) | payer MEDICARE, OTHER, SELFPAY ==
[2023-04-27 13:12] VITALS: BP 116/76; PULSE 100; RESP 18; TEMP 36.4; O2SAT 97; BMI 18.3
--- NOTE | 2023-04-27 13:13 | XR_ITS ---
WS: [id number] Portable AP upright chest, 04/27/2023 Clinical Data: abd pain Comparison: Portable chest, 04/24/2023 Findings: No nodules, masses or effusions are seen. The heart is normal. The pulmonary vascularity is not increased. No pneumonia or pneumothorax is seen. The aortic arch and descending thoracic aorta s how tortuosity. There are orthopedic anchors in the right humeral head. There is vertebroplasty cemen t in the L3 vertebral body. Impression: Atherosclerosis.
--- NOTE | 2023-04-27 13:34 | ECG_ITS ---
[facility] Test Date: 2023-04-27 Pat Name: Rosemary Nelson Department: Room: Gender: Female Sales Store Checker: : 1945 Requested By: Sami Fierro Order Number: [id number] Reading MD: Georgi Hunt M.D. Measurements Intervals [place] Rate: 76 P: 50 [place]: 185 QRS: 38 QRSD: 89 T: 46 QT: 367 QTc: 415 Interpretive Statements SINUS RHYTHM LOW QRS VOLTAGE IN PRECORDIAL LEADS [QRS DEFLECTION < 1.0 mV IN CHEST LEADS] Compared to ECG 04/24/2023 10:00:38 Low QRS voltage now present Atrial abnormality no longer present T-wave abnormality no longer present Electronically Signed On 04-28-2023 18:32:57 IT INVESTMENT/PORTFOLIO MANAGER by Georgi Hunt M.D. [id number]
--- NOTE | 2023-04-27 13:35 | ED_ITS ---
HPI - Abdominal Pain 2 General: Chief Complaint: Abdominal Pain Stated Complaint: abd pain Time Seen by Provider: 04/27/23 13:14 Source: patient Mode of arrival: ambulatory Limitations: no limitations History of Present Illness: 78-year-old female who was seen here 3 days ago was diagnosed with pneumonia states she has had a cough and she has been having right-sided chest pain it is very sharp in nature she states that the pain is worse and it has been a hard time sleeping due to her pain. She denies any fever denies any vomiting denies any shortness of breath. Associated Symptoms: Denies chills, diarrhea, fever(s), nausea and vomiting Review of Systems 2 Const: Denies: fever(s), chills, body aches or change in appetite ENMT: Denies: throat pain or dental pain Card: Reports: chest pain Resp: Reports: non-productive cough; Denies: dyspnea GI: Denies: abdominal pain, nausea, vomiting or diarrhea Musc: Denies: neck pain or back pain Skin/Breast: Denies: rash Neuro: Denies: headache(s) PFSH ED 2 PFSH: Medical History Neuropathic pain Environmental and seasonal allergies Enrolled in chronic care management Gout Osteopenia Hx of migraine headaches Dry eye syndrome, bilateral Altered gait Small vessel disease, 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 Essential hypertension Surgical History Status post left foot surgery after fracture History of arthroscopic knee surgery Left knee History of hand surgery Left 4th metacarpal fracture Status post surgical removal of acromioclavicular joint 2019 History of cervical spinal surgery History of hysterectomy with oophorectomy Family History Mother Stroke Hypothyroidism Hypertension Father Heart disease Sister Cancer Lung and breast Other CAD (coronary artery disease) Diabetes Social History Smoking and tobacco/nicotine status: never used tobacco/nicotine Second hand smoke exposure: No Alcohol intake: never Substance/Drug Use: never Adopted: No Caregiver/support person: No Lives independently: No Household members: significant other Housing: House Marital status: Life Partner service: No Current occupational status: unemployed Sexually active: Yes Do you think of yourself as: Straight/Heterosexual Current gender identity: Female Physical Exam 2 Const: COMMON NORMALS: no acute distress, patient oriented x3 and healthy appearing HENMT: COMMON NORMALS: normocephalic and atraumatic HEAD & SCALP: n ormocephalic and atraumatic Eye: COMMON NORMALS: Equal, round and reactive pupils present and EOMs intact bilaterally PUPIL: Yes Equal, round and reactive pupils present Neck/C-Spine: COMMON NORMALS: full ROM and supple Chest: COMMONS NORMALS: normal inspection of the chest OTHER: point tender over right chest Resp: COMMON NORMALS: normal respiratory effort, No retractions, No use of accessory muscles and clear to auscultation bilaterally AUSCULTATION: clear to auscultation bilaterally Cardio: COMMON NORMALS: regular rate, regular rhythm and No murmurs present (Cardio) RATE: regular rate RHYTHM: regular rhythm GI: COMMON NORMALS: Normal to inspection, nondistended, normoactive bowel sounds present, Soft to palpation, non-tender and no masses PALPATION: Yes Soft to palpation Extremity: COMMON NORMALS: normal to inspection and full ROM Neuro: COMMON NORMALS: patient oriented x3, moves all extremities and no focal motor deficits Psych: COMMON NORMALS: mental status grossly normal, Normal thought process present and cooperative THOUGHT PROCESS: Normal thought process present Skin: COMMON NORMALS: no rashes or lesions noted and no wounds GENERAL SKIN EXAM: no rashes or lesions noted Course 2 Vital Signs: Vital signs: Vital Signs Temperature 97.6 F 04/27/23 13:12 Pulse Rate 82 04/27/23 14:16 Respiratory Rate 18 04/27/23 13:12 Blood Pressure 123/86 04/27/23 14:16 Pulse Oximetry 98 04/27/23 14:16 Oxygen Delivery Me thod Room Air 04/27/23 13:12 MDM - Abdominal Pain Medical Decision Making patient presents here with chest wall pain likely from her cough and pneumonia she is continue antibiotics blood work and chest x-ray here showed no acute abnormalities we will place her on pain meds she is follow-up PCP and return if worsening. Medical Records I reviewed the patient's medical records. Lab Data I reviewed the patient's lab results. 04/27/23 13:32 04/27/23 13:32 Labs/Radiology: Laboratory Results WBC 5.47 10^3/uL (3.29-11.43) 04/27/23 13:32 RBC 3.87 10^6/uL (3.85-5.65) 04/27/23 13:32 Hgb 11.80 g/dL (11.27-16.99) 04/27/23 13:32 Hct 36.8 % (36-47) 04/27/23 13:32 MCV 95.1 fl (85-98) 04/27/23 13:32 MCH 30.5 pg (27-33) 04/27/23 13:32 MCHC 32.1 g/dL (30-55) 04/27/23 13:32 RDW 12.3 % (12.1-15.1) 04/27/23 13:32 Plt Count 221 10^3/cmm (157-399) 04/27/23 13:32 MPV 9.3 fL (7.4-10.4) 04/27/23 13:32 Neut % (Auto) 59.4 % 04/27/23 13:32 Lymph % (Auto) 30.0 % 04/27/23 13:32 Thurston % (Auto) 7.3 % 04/27/23 13:32 Eos % (Auto) 2.6 % 04/27/23 13:32 Baso % (Auto) 0.5 % 04/27/23 13:32 Neut # (Auto) 3.25 10^3/uL (1.8-7.7) 04/27/23 13:32 Lymph # (Auto) 1.6 10^3/uL (0.8-4.8) 04/27/23 13:32 Thurston # (Auto) 0.4 10^3/uL (0.2-0.9) 04/27/23 13:32 Eos # (Auto) 0.1 10^3/uL (0.0-0.8) 04/27/23 13:32 Baso # (Auto) 0.0 10^3/uL (0.0-0.1) 04/27/23 13:32 Nucleated RBC % (auto) 0 % 04/27/23 13:32 Nucleated RBCs # 0.0 /100WBC 04/27/23 13:32 Sodium 137 mmol/L (136-145) 04/27/23 13:32 Potassium 4.6 mmol/L (3.5-5.1) 04/27/23 13:32 Chloride 100 mmol/L (98-107) 04/27/23 13:32 Carbon Dioxide 24 mmol/L (22-29) 04/27/23 13:32 Anion Gap 17.6 (5-19) 04/27/23 13:32 BUN 25 mg/dL (8-23) H 04/27/23 13:32 Creatinine 1.1 mg/dL (0.5-0.9) H 04/27/23 13:32 GFR Calculation Not Reportable 04/27/23 13:32 Glucose 90 mg/dL (65-115) 04/27/23 13:32 Calculated Osmolality 288 mOsm/kg (285-295) 04/27/23 13:32 Calcium 9.3 mg/dL (8.5-10.5) 04/27/23 13:32 Total Bilirubin 0.3 mg/dL (0.15-1.2) 04/27/23 13:32 AST 16 U/L (0-32) 04/27/23 13:32 ALT 12 U/L (0-33) 04/27/23 13:32 Alkaline Phosphatase 79 U/L (35-105) 04/27/23 13:32 Troponin T Baseline 36 ng/L (0-10) H 04/27/23 13:32 Total Protein 6.7 g/dL (6.6-8.7) 04/27/23 13:32 Albumin 3.6 g/dL (3.5-5.2) 04/27/23 13:32 Globulin 3.1 g/dL (1.3-4.6) 04/27/23 13:32 Lipase 20 U/L (13-60) 04/27/23 13:32 All radiology interpretation(s) finalized by discharge EKG Data EKG 1: I personally reviewed and interpreted this EKG as follows: EKG interpretation date: 04/27/23 EKG interpretation time: 13:46 Interpretation: nsr hr [address] or t wave abnormalities qrs 89 qtc 398 Discharge Plan Discharge Patient Disposition: Home Clinical Impression: Chest pain Qualifiers: Chest pain type: unspecified Qualified Code(s): R07.9 - Chest pain, unspecified Condition: Stable Prescriptions: New hydrocodone-acetaminophen 5-325 mg tablet 1 tab PO Q6H PRN (Reason: pain) Qty: 14 0RF No Action magnesium gluconate [Mag-G] 27 mg magnesium (500 mg) tablet 27 mg PO BID Qty: 60 5RF Lucile Thyroid 30 mg tablet See Rx Instructions PO .COMPLEX Qty: 60 5RF Rx Instructions: 60mg daily Sunday through and 30mg daily Sunday through Sunday (DME) lumbar support brace See Rx Instructions .Route .MEDSUPPLY Qty: 1 0RF Rx Instructions: As directed fluticasone propionate [Flonase Allergy Relief] 50 mcg/actuation spray,suspension 2 spray intranasal DAILY Qty: 16 2RF Rx Instructions: administer into each nostril Tylenol Arthritis 650 mg Tablet Extended Release 650 mg PO Q12H PRN (Reason: Pain) azelastine 137 mcg (0.1 %) aerosol,spray 1 spray intranasal BID PRN (Reason: Nasal Congestion) Rx Instructions: administer into each nostril Os-Zak 500 + D3 500 mg-15 mcg (600 unit) tablet 1 tab PO BID levofloxacin 500 mg tablet 500 mg PO DAILY 7 Days Qty: 7 0RF acetaminophen 500 mg Tablet 500 mg PO Q6H PRN (Reason: Pain) albuterol sulfate 90 mcg/actuation HFA aerosol inhaler 2 inh inhalation Q6H PRN (Reason: shortness of breath or wheezing) Qty: 8.5 0RF Discharge Orders: Discharge ED (Routine); Ordered 04/27/23 Ordered By: Sami Fierro Referrals: Trenton Mckeon FNP [Primary Care Provider] - 1-3 days Discharge Diet: Advance as tolerated Discharge Activity: Resume usual activity Patient Instructions: Chest Pain (ED) Coding Level of Care Code ED Associate Software Development Engineer for Bharat Baxter
[2023-04-27 13:54] LABS: Basophils % 0.5 %; Eosinophils # 0.1 10^3/uL (0.0-0.8); Eosinophils % 2.6 %; Hematocrit 36.8 % (36-47); Lymphocytes # 1.6 10^3/uL (0.8-4.8); Mean Corpuscular HGB Conc 32.1 g/dL (30-55); Mean Corpuscular Hemoglobin 30.5 pg (27-33); Mean Corpuscular Volume 95.1 fl (85-98); Mean Platelet Volume 9.3 fL (7.4-10.4); Monocytes # 0.4 10^3/uL (0.2-0.9); Monocytes % 7.3 %; Neutrophils # 3.25 10^3/uL (1.8-7.7); Neutrophils % 59.4 %; Nucleated Red Blood Cells % 0 %; Platelet Count 221 10^3/cmm (157-399); Red Blood Count 3.87 10^6/uL (3.85-5.65); Red Cell Distribution Width 12.3 % (12.1-15.1); White Blood Count 5.47 10^3/uL (3.29-11.43)
[2023-04-27 14:10] LABS: Alanine Aminotransferase 12 U/L (0-33); Albumin Level 3.6 g/dL (3.5-5.2); Alkaline Phosphatase 79 U/L (35-105); Anion Gap 17.6 (5-19); Aspartate Amino Transferase 16 U/L (0-32); Blood Urea Nitrogen 25 mg/dL (8-23); Calcium 9.3 mg/dL (8.5-10.5); Carbon Dioxide 24 mmol/L (22-29); Chloride 100 mmol/L (98-107); Globulin 3.1 g/dL (1.3-4.6); Glucose 90 mg/dL (65-115); Lipase 20 U/L (13-60); Osmolality Calculated 288 mOsm/kg (285-295); Potassium 4.6 mmol/L (3.5-5.1); Sodium 137 mmol/L (136-145); Total Bilirubin 0.3 mg/dL (0.15-1.2); Total Protein 6.7 g/dL (6.6-8.7); Troponin(5th) Baseline 36 ng/L (0-10)
[2023-04-27] MEDS: HYDROcodone-acetaminophen 5-325 mg Tablet 1 TAB PO (14:14)
[2023-04-27 14:16] VITALS: BP 123/86; PULSE 82; O2SAT 98
== END 2023-04-27 15:32 | disposition home or self-care (01) ==
PROVIDERS: Emergency Provider Emergency Medicine; PCP Registered Nurse
DX: R07.9 Chest pain, unspecified (principal); I10 Essential (primary) hypertension
CPT/HCPCS: 36415; 71045; 80053; 83690; 84484; 85025; 93005; 99285

== ENCOUNTER 2023-06-08 14:56 | Outpatient (CLI) | payer MEDICARE, OTHER, SELFPAY ==
--- NOTE | 2023-06-08 16:00 | CT_ITS ---
WS: [id number] CT HEAD TECHNIQUE: Noncontrast CT of the head obtained from the skullbase to the vertex. CLINICAL INFORMATION: G31.84 - Mild cognitive impairment of uncertain or unknow... COMPARISON: CT 06/11/2022 DLP: 1045.[address] scans at [facility] use at least one of these dose optimization techniques: automated e xposure control; mA and/or kV adjustment per patient size (includes targeted exams where dose is matc hed to clinical indication); or iterative reconstruction. FINDINGS: No evidence of intracranial hemorrhage or mass effect. Ventricular system and basal cisterns are hernandez nt. Mild small vessel changes with moderate parenchymal volume loss. No extra-axial fluid collections . No evidence of mass or mass effect. Intracranial vascular calcification. Paranasal sinuses and mastoid air cells are well aerated. .Normal visualized soft tissues. IMPRESSION: 1. No evidence of intracranial hemorrhage or mass effect. 2. Mild small vessel changes. Moderate parenchymal volume loss. 3. Intracranial vascular calcification. 4. No acute intracranial findings and no significant changes since 06/11/2022.
== END 2023-06-08 14:57 | disposition home or self-care (01) ==
LOC: RAD 14:56
PROVIDERS: PCP Registered Nurse; Visit Provider Registered Nurse
DX: G31.84 Mild cognitive impairment of uncertain or unknown etiology (principal); R53.1 Weakness
CPT/HCPCS: 70450

== ENCOUNTER → 2023-06-21 15:53 | Outpatient (BNVA) | payer MEDICARE, OTHER, SELFPAY | PROVIDERS: PCP Registered Nurse; Visit Provider Registered Nurse | DX: R53.1 Weakness (principal) | CPT/HCPCS: 84443 ==

== ENCOUNTER 2023-11-29 11:00 | Emergency (ER) | payer MEDICARE, OTHER, SELFPAY ==
[2023-11-29 11:02] VITALS: BP 173/104; PULSE 75; TEMP 36.4; O2SAT 94; BMI 17.9
--- NOTE | 2023-11-29 11:03 | XRR_ITS ---
PROCEDURE INFORMATION: Exam: XR Left Shoulder Exam date and time: 11/29/2023 11:13 AM Age: 78 years old Clinical indication: Injury or trauma; Fall; Blunt trauma (contusions or hematomas); Shoulder; Left TECHNIQUE: Imaging protocol: Radiologic exam of the left shoulder. Views: 2 or more views. COMPARISON: CR XR elbow LT min 3V* [id number] 11/29/2023 11:13 AM FINDINGS: Bones/joints: Bones are diffusely demineralized. No definite fracture or dislocation is appreciated. There are minimal degenerative changes involving the AC joint. Soft tissues: Normal. XR/XR shoulder LT min 2V* [id number] IMPRESSION: 1. Bony demineralization.
--- NOTE | 2023-11-29 11:03 | XRR_ITS ---
PROCEDURE INFORMATION: Exam: XR Left Elbow Exam date and time: 11/29/2023 11:13 AM Age: 78 years old Clinical indication: Injury or trauma; Fall; Blunt trauma (contusions or hematomas); Elbow; Left TECHNIQUE: Imaging protocol: Radiologic exam of the left elbow. Views: 3 or more views. COMPARISON: CR XR shoulder LT min 2V* [id number] 11/29/2023 11:13 AM FINDINGS: Bones/joints: No fracture or dislocation is appreciated. There are mild degenerative changes. There is no evidence of a significant joint effusion. Soft tissues: Normal. XR/XR elbow LT min 3V* [id number] IMPRESSION: 1. No acute findings.
--- NOTE | 2023-11-29 11:03 | XRR_ITS ---
PROCEDURE INFORMATION: Exam: XR Left Hip Exam date and time: 11/29/2023 11:13 AM Age: 78 years old Clinical indication: Injury or trauma; Fall; Work related; Blunt trauma (contusions or hematomas); Left; Hip TECHNIQUE: Imaging protocol: Radiologic exam of the left hip. Views: 2 or 3 views hip with pelvis when performed. COMPARISON: CT abdomen pelvis wo con [id number] 04/24/2023 10:19 AM FINDINGS: Bones/joints: There are degenerative changes involving the lower lumbar spine. There is an old fracture involving the inferior pubic ramus on the right. The pelvic ring is otherwise intact. No acute fractures are identified. SI joints and symphysis pubis are normal. The femoral heads are normally located. Hip joint spaces are relatively well preserved. No definite fractures are noted involving the proximal femurs. Soft tissues: Unremarkable. XR/XR hip LT 2-3V wo/w pel* [id number] IMPRESSION: 1. Degenerative changes involving the lower lumbar spine. 2. Old inferior pubic ramus fracture on the right.
--- NOTE | 2023-11-29 11:17 | ED_ITS ---
HPI - Fall General: Chief Complaint: Fall Stated Complaint: fall Time Seen by Provider: 11/29/23 11:00 Source: patient and EMS Mode of arrival: EMS Limitations: no limitations History of Present Illness: 78-year-old female who states that she h ad a fall last night onto her left side states since then she been having left shoulder left elbow and left hip pain. She also having some back pain as well she denies a headache but is unsure if she hit her head. She had no loss of consciousness. Associated symptoms-after fall: Denies abdominal pain, chest pain, headache(s) or neck pain Review of Systems Const: Denies: fever(s), chills, body aches or change in appetite ENMT: Denies: throat pain or dental pain Card: Denies: chest pain Resp: Denies: dyspnea GI: Denies: abdominal pain, nausea, vomiting or diarrhea Musc: Reports: back pain and extremity pain; Denies: neck pain Skin/Breast: Denies: rash Neuro: Denies: headache(s) PFSH ED PFSH: Medical History Neuropathic pain Environmental and seasonal allergies Enrolled in chronic care management Gout Osteopenia Hx of migraine headaches Dry eye syndrome, bilateral Altered gait Small vessel disease, 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 Essential hypertension Surgical History Status post left foot surgery after fracture History of arthroscopic knee surgery Left knee History of hand surgery Left 4th metacarpal fracture Status post surgical removal of acromioclavicular joint 2019 History of cervical spinal surgery History of hysterectomy with oophorectomy Family History Mother Stroke Hypothyroidism Hypertension Father Heart disease Sister Cancer Lung and breast Other CAD (coronary artery disease) Diabetes Social History Smoking and tobacco/nicotine status: never used tobacco/nicotine Second hand smoke exposure: No Alcohol intake: never Substance/Drug Use: never Adopted: No Caregiver/support person: No Lives independently: No Household members: significant other Housing: House Marital status: Life Partner service: No Current occupational status: unemployed Sexually active: Yes Do you think of yourself as: Straight/Heterosexual Current gender identity: Female Physical Exam Const: COMMON NORMALS: no acute distress, patient oriented x3 and healthy appearing HENMT: COMMON NORMALS: normocephalic and atraumatic HEAD & SCALP: normocephalic and atraumatic Eye: COMMON NORMALS: Equal, round and reactive pupils present and EOMs intact bilaterally PUPIL: Yes Equal, round and reactive pupils present Neck/C-Spine: COMMON NORMALS: full ROM and supple Chest: COMMONS NORMALS: normal inspection of the chest and normal palpation of entire chest wall Resp: COMMON NORMALS: normal respiratory effort, No retractions, No use of accessory muscles and clear to auscultation bilaterally AUSCULTATION: clear to auscultation bilaterally Cardio: COMMON NORMALS: regular rate, regular rhythm and No murmurs present (Cardio) RATE: regular rate RHYTHM: regular rhythm GI: COMMON NORMALS: Normal to inspection, nondistended, normoactive bowel sounds present, Soft to palpation, non-tender and no masses PALPATION: Yes Soft to palpation Extremity: NARRATIVE EXTREMITY EXAM: Tenderness noted to left hip Neuro: COMMON NORMALS: patient oriented x3, moves all extremities and no focal motor deficits Psych: COMMON NORMALS: mental status grossly normal, Normal thought process present and cooperative THOUGHT PROCESS: Normal thought process present Skin: COMMON NORMALS: no rashes or lesions noted and no wounds GENERAL SKIN EXAM: no rashes or lesions noted Course Vital Signs: Vital signs: Vital Signs Temperature 97.5 F L 11/29/23 14:27 Pulse Rate 71 11/29/23 14:27 Respiratory Rate 16 11/29/23 14:27 Blood Pressure 157/101 11/29/23 14:27 Pulse Oximetry 96 11/29/23 14:27 Oxygen Delivery Me thod Room Air 11/29/23 11:02 MDM - Fall Medical Decision Making Patient presents here after a fall she complained of some hip pain and back pain imaging here is all normal no signs of fracture she stable for discharge at this time follow-up with PCP return if worsening Medical Records I reviewed the patient's medical records. Lab Data Radiology Impressions Elbow X-Ray 11/29/23 11:03 IMPRESSION: 1. No acute findings. Hip/Pelvis X-Ray 11/29/23 11:03 IMPRESSION: 1. Degenerative changes involving the lower lumbar spine. 2. Old inferior pubic ramus fracture on the right. Shoulder X-Ray 11/29/23 11:03 IMPRESSION: 1. Bony demineralization. Head CT 11/29/23 11:41 IMPRESSION: 1. No evidence of intracranial hemorrhage or mass effect. 2. Mild small vessel changes with moderate parenchymal volume loss. 3. Vascular calcification. 4. No acute intracranial findings. Hip CT 11/29/23 11:41 IMPRESSION: No acute LEFT hip fractures Lumbar Spine CT 11/29/23 11:41 IMPRESSION: 1. No acute fractures. 2. Prior kyphoplasty changes L3. 3. Moderate to severe central canal stenosis L4-5. This appears progressed since 2020. This can be followed up with MRI lumbar spine on elective basis. All radiology interpretation(s) finalized by discharge Discharge Plan Discharge Patient Disposition: Home Clinical Impression: Contusion of left hip Fall Qualifiers: Encounter type: initial encounter Qualified Code(s): W19.XXXA - Unspecified fall, initial encounter Condition: Stable Prescriptions: No Action (DME) lumbar support brace See Rx Instructions .Route .MEDSUPPLY Qty: 1 0RF Rx Instructions: As directed sennosides-docusate sodium [Senna Plus] 8.6-50 mg tablet 1 tab-cap PO BID 7 Days Qty: 14 0RF magnesium gluconate [Mag-G] 27 mg magnesium (500 mg) tablet 27 mg PO BID Qty: 60 5RF cetirizine [Zyrtec] 10 mg tablet 10 mg PO DAILY PRN (Reason: allergy symptoms) Qty: 30 0RF ketotifen fumarate [Alaway] 0.025 % (0.035 %) drops 1 drp ophthalmic (eye) BID Qty: 5 0RF Rx Instructions: administer at least 8 hours apart acetaminophen [Tylenol Arthritis] 650 mg Tablet Extended Release 650 mg PO Q12H PRN (Reason: Pain) calcium carbonate-vitamin D3 [Os-Zak 500 + D3] 500 mg-15 mcg (600 unit) tablet 1 tab PO BID acetaminophen 500 mg Tablet 500 mg PO Q6H PRN (Reason: Pain) simvastatin 10 mg tablet 10 mg PO 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 IN THE EVENING. Discharge Orders: Discharge ED (Routine); Ordered 11/29/23 Ordered By: Sami Fierro Referrals: Trenton Mckeon FNP [Primary Care Provider] - 4-7 days Discharge Diet: Advance as tolerated Discharge Activity: Resume usual activity Patient Instructions: Contusion in Adults (ED) Coding Level of Care Code ED Physical Security Engineer for Bharat Baxter
--- NOTE | 2023-11-29 11:41 | CT_ITS ---
WS: [id number] Noncontrast CT LEFT hip TECHNIQUE: Noncontrast CT LEFT hip with coronal and sagittal reformatted images. CLINICAL INFORMATION: fall COMPARISON: CT LEFT hip 07/21/2021 DLP: 814.[address] scans at [facility] use at least one of these dose optimization techniques: automated e xposure control; mA and/or kV adjustment per patient size (includes targeted exams where dose is matc hed to clinical indication); or iterative reconstruction. FINDINGS: History of previous slightly comminuted fracture through the base of the LEFT greater trochanter seen on the prior CT 07/21/2021 Evidence of interval healing since the prior examination. Osteopenia. No acute LEFT femoral head or n cheyanne fractures today. Proximal femoral shaft appears normal. Normal acetabulum. Normal visualized LEFT pubic rami. Sigmoid diverticulosis. Vascular calcification. CT/CT hip LT wo con* [id number] IMPRESSION: No acute LEFT hip fractures
--- NOTE | 2023-11-29 11:41 | CT_ITS ---
WS: [id number] CT LUMBAR SPINE TECHNIQUE: Noncontrast CT of the lumbar spine with coronal and sagittal reformatted images. CLINICAL INFORMATION: fall COMPARISON: MRI 2020 DLP: 814.[address] scans at [facility] use at least one of these dose optimization techniques: automated e xposure control; mA and/or kV adjustment per patient size (includes targeted exams where dose is matc hed to clinical indication); or iterative reconstruction. FINDINGS: Mild lumbar curve. Chronic compression L3 vertebral body with kyphoplasty changes. No acute appearing compression fractures. Subsegmental atelectasis in the lung bases. Sigmoid diverticulosis. L1-L2: Normal. L2-L3: Moderate facet arthropathy. Mild LEFT and no significant RIGHT foraminal narrowing. L3-L4: Moderate facet arthropathy. Spinal canal and foramen are patent. L4-L5: Mild annular bulging with moderate to severe central canal stenosis. Moderate facet arthropath y ligamentum flavum hypertrophy. Impingement on the ventral thecal sac. Slight anterolisthesis L4 on L5. Foramen are patent. L5-S1: Spinal canal and foramen are patent. Visualized pelvic bony structures: Normal. Paravertebral soft tissues: Normal. CT/CT lumbar spine wo con* [id number] IMPRESSION: 1. No acute fractures. 2. Prior kyphoplasty changes L3. 3. Moderate to severe central canal stenosis L4-5. This appears progressed sin ce 2020. This can be followed up with MRI lumbar spine on elective basis.
--- NOTE | 2023-11-29 11:41 | CT_ITS ---
WS: [id number] CT HEAD TECHNIQUE: Noncontrast CT of the head obtained from the skullbase to the vertex. CLINICAL INFORMATION: fall COMPARISON: None. DLP: 1038.[address] scans at [facility] use at least one of these dose optimization techniques: automated e xposure control; mA and/or kV adjustment per patient size (includes targeted exams where dose is matc hed to clinical indication); or iterative reconstruction. FINDINGS: No evidence of intracranial hemorrhage or mass effect. Ventricular system and basal cisterns are hernandez nt. Mild small vessel changes with moderate parenchymal volume loss. No extra-axial fluid collections . No evidence of mass or mass effect. Normal garcia-white differentiation. Vascular calcification. Paranasal sinuses and mastoid air cells are well aerated. .Normal visualized soft tissues. CT/CT head wo con* [id number] IMPRESSION: 1. No evidence of intracranial hemorrhage or mass effect. 2. Mild small vessel changes with moderate parenchymal volume loss. 3. Vascular calcification. 4. No acute intracranial findings.
--- NOTE | 2023-11-29 12:18 | PC.NURSE ---
this nurse assumed pt care at 1210.
[2023-11-29] MEDS: HYDROcodone-acetaminophen 5-325 mg Tablet 1 TAB PO (13:28)
[2023-11-29 14:27] VITALS: BP 157/101; PULSE 71; RESP 16; TEMP 36.4; O2SAT 96
== END 2023-11-29 14:27 | disposition home or self-care (01) ==
PROVIDERS: Emergency Provider Emergency Medicine; PCP Registered Nurse
DX: S70.02XA Contusion of left hip, initial encounter (principal); I10 Essential (primary) hypertension; W19.XXXA Unspecified fall, initial encounter
CPT/HCPCS: 70450; 72131; 73030; 73080; 73502; 73700; 99284

== ENCOUNTER 2024-07-22 17:37 | Emergency (ER) | payer MEDICARE, OTHER, SELFPAY ==
[2024-07-22 17:42] VITALS: BP 154/88; PULSE 97; RESP 16; TEMP 36.7; O2SAT 98; BMI 18.8
--- NOTE | 2024-07-22 17:49 | XRR_ITS ---
PROCEDURE INFORMATION: Exam: XR Chest Exam date and time: 07/22/2024 5:54 PM Age: 79 years old Clinical indication: Other: Weakness; Additional info: Weak TECHNIQUE: Imaging protocol: Radiologic exam of the chest. Views: 1 view. COMPARISON: CR XR chest 1V portable [id number] 04/27/2023 1:46 PM FINDINGS: Lungs: Unremarkable. No consolidation. Pleural spaces: Unremarkable. No pleural effusion. No pneumothorax. Heart/Mediastinum: Unremarkable. No cardiomegaly. Bones/joints: Unremarkable. XR/XR chest 1V portable [id number] IMPRESSION: No acute findings.
--- NOTE | 2024-07-22 18:23 | ECG_ITS ---
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
--- NOTE | 2024-07-22 18:24 | W.ED.GENADLT ---
HPI - General Adult General: Chief complaint: General Medical Stated complaint: Weakness Time Seen by Provider: 07/22/24 17:41 Source: patient and EMS Mode of arrival: EMS Limitations: other (poor historian) History of Present Illness: Patient is an 79-year-old female who was brought into the emergency department by EMS from assisted due to failure to thrive. Patient reportedly requested to come to the ED, this was not requested by the assisted staff. Patient wanted evaluated for feeling sick for the past week. Of note she was started on Zoloft last week for depression. She specifically is not reporting any suicidal or homicidal ideations, overall is a poor historian and just states that she feels not herself. She is noting that she is too weak to move, and thus has been too weak to get up for meals. Reportedly she has denied every meal while at the assisted. She does note feeling nauseous, otherwise has no other symptoms to report. She is not reporting any respiratory complaints, chest pain, or abdominal pain. There is no vomiting or diarrhea. No urinary symptoms. She is reportedly at baseline mentation, alert and oriented x 4. Her vitals are within normal limits. MD complaint: Week, nausea Onset (ago): week(s) (1) Pain Consistency: constant Related Data Home Medications ?Medication ?Instructions ?Recorded ?Confirmed acetaminophen 500 mg tablet 500 mg PO Q6H PRN Pain 04/07/23 11/29/23 acetaminophen 650 mg 650 mg PO Q12H PRN Pain 04/24/23 11/29/23 tablet,extended release calcium 500 mg (as 1 tab PO BID 04/24/23 11/29/23 carbonate)-vitamin D3 15 mcg (600 unit) tablet (Os-Zak 500 + D3) simvastatin 10 mg tablet 10 mg PO BEDTIME 11/29/23 11/29/23 thyroid (pork) 30 mg tablet (BUILDING MAINTENANCE TECHNICIAN See Rx Instructions .Route .COMPLEX 11/29/23 11/29/23 Thyroid) Previous Rx's ?Medication ?Instructions ?Recorded lumbar support brace #1 ea 10/20/22 magnesium gluconate 27 mg 27 mg PO BID #60 tabs 05/03/23 magnesium (500 mg) tablet (Mag-G) sennosides 8.6 mg-docusate sodium 1 tab-cap PO BID 7 days #14 tabs 05/03/23 50 mg tablet (Senna Plus) cetirizine 10 mg tablet (Zyrtec) 10 mg PO DAILY PRN allergy 06/21/23 symptoms #30 tabs ketotifen fumarate 0.025 % (0.035 1 drp ophthalmic (eye) BID #5 mL 06/21/23 %) eye drops (Alaway) cefdinir 300 mg capsule 300 mg PO BID 10 days #20 caps 07/22/24 Allergies Allergy/AdvReac Type Severity Reaction Status Date / Time meperidine (From Demerol) AdvReac Severe gastric Verified 11/29/23 11:09 upset and headache Opioids - Morphine Analogues AdvReac Severe gastric Verified 11/29/23 11:09 upset and headache Review of Systems General: Reports: Other (Unobtainable due to poor historian) [facility] PFSH: Medical History Neuropathic pain Environmental and seasonal allergies Enrolled in chronic care management Gout Osteopenia Hx of migraine headaches Dry eye syndrome, bilateral Altered gait Small vessel disease, 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 Essential hypertension Surgical History Status post left foot surgery after fracture History of arthroscopic knee surgery Left knee History of hand surgery Left 4th metacarpal fracture Status post surgical removal of acromioclavicular joint 2019 History of cervical spinal surgery History of hysterectomy with oophorectomy Family History Mother Stroke Hypothyroidism Hypertension Father Heart disease Sister Cancer Lung and breast Other CAD (coronary artery disease) Diabetes Social History Smoking and tobacco/nicotine status: never used tobacco/nicotine Second hand smoke exposure: No Alcohol intake: never Substance/Drug Use: never Adopted: No Caregiver/support person: No Lives independently: No Household members: significant other Housing: House Marital status: Life Partner service: No Current occupational status: unemployed Sexually active: Yes Do you think of yourself as: Straight/Heterosexual Current gender identity: Female Physical Exam Const: COMMON NORMALS: no acute distress, patient oriented x3, no limitations and alert GENERAL APPEARANCE: cooperative NUTRITIONAL APPEARANCE: underweight ORIENTATION/CONSCIOUSNESS: Yes awake, Yes oriented to person, Yes oriented to place and Yes oriented to time HENMT: COMMON NORMALS: normocephalic, atraumatic, hearing grossly normal bilaterally, moist oral mucous membranes and oropharynx normal HEAD & SCALP: normocephalic and atraumatic Eye: COMMON NORMALS: Equal, round and reactive pupils present and EOMs intact bilaterally CONJUNCTIVA: Yes conjunctival abnormal positive bilateral discharge mucoid PUPIL: Yes Equal, round and reactive pupils present Neck/C-Spine: COMMON NORMALS: full ROM, supple, no meningeal signs and no JVD Chest: COMMONS NORMALS: normal inspection of the chest and normal palpation of entire chest wall Resp: COMMON NORMALS: normal respiratory effort, No retractions, No use of accessory muscles and clear to auscultation bilaterally AUSCULTATION: clear to auscultation bilaterally Cardio: COMMON NORMALS: no JVD, regular rate, regular rhythm, S1 normal heart sound present and S2 normal heart sound present RATE: regular rate RHYTHM: regular rhythm HEART SOUNDS: S1 normal heart sound present and S2 normal heart sound present GI: COMMON NORMALS: Normal to inspection, nondistended, normoactive bowel sounds present, Soft to palpation and non-tender PALPATION: Yes Soft to palpation Extremity: COMMON NORMALS: normal to inspection, full ROM, capillary refill normal and no pedal edema Neuro: COMMON NORMALS: patient oriented x3, moves all extremities, no focal motor deficits and no sensory deficits noted SENSORIUM/ORIENTATION: Yes alert, Yes oriented to person, Yes oriented to place and Yes oriented to time MENINGEAL SIGNS: Yes no meningeal signs Psych: COMMON NORMALS: denies hallucinations, denies homicidal ideation and denies suicidal ideation Skin: COMMON NORMALS: no rashes or lesions noted GENERAL SKIN EXAM: no rashes or lesions noted Course Vital Signs: Vital signs: Vital Signs Temperature 98.1 F 07/22/24 17:42 Pulse Rate 77 07/22/24 18:33 Respiratory Rate 16 07/22/24 17:42 Blood Pressure 156/92 07/22/24 18:33 Pulse Oximetry 97 07/22/24 18:33 MDM - General Adult Medical Decision Making Patient brought in by ambulance, she had requested to come to the ED from assisted for weakness for the past week. Recently started on Zoloft, reportedly she had not been eating at the assisted. Vitals have been within normal limits. Her EKG showed normal sinus rhythm with no acute abnormalities. X-ray unremarkable. Lab work unremarkable. Urinalysis did show signs of a UTI. Overall physical examination unremarkable she did not seem clinically dehydrated. She specifically denied suicidal homicidal ideations to myself as well as to EMS and to nurse. Therefore is not meeting criteria for transfer to [facility]. This could be a side effect of her recently started Zoloft, it has not been taken for long enough to reach therapeutic effect, in addition her appetite can be suppressed from lingering UTI. Ultimately stable for discharge home with general return precautions. Lab Data 07/22/24 18:12 07/22/24 18:12 Radiology Impressions Chest X-Ray 07/22/24 17:49 IMPRESSION: No acute findings. Laboratory Results WBC 8.23 10^3/uL (3.29-11.43) 07/22/24 18:12 RBC 4.49 10^6/uL (3.85-5.65) 07/22/24 18:12 Hgb 13.20 g/dL (11.27-16.99) 07/22/24 18:12 Hct 40.6 % (36-47) 07/22/24 18:12 MCV 90.4 fl (85-98) 07/22/24 18:12 MCH 29.4 pg (27-33) 07/22/24 18:12 MCHC 32.5 g/dL (30-55) 07/22/24 18:12 RDW 14.2 % (12.1-15.1) 07/22/24 18:12 Plt Count 361 10^3/cmm (157-399) 07/22/24 18:12 MPV 9.9 fL (7.4-10.4) 07/22/24 18:12 Neut % (Auto) 63.1 % 07/22/24 18:12 Lymph % (Auto) 28.2 % 07/22/24 18:12 Winn % (Auto) 6.2 % 07/22/24 18:12 Eos % (Auto) 1.6 % 07/22/24 18:12 Baso % (Auto) 0.5 % 07/22/24 18:12 Neut # (Auto) 5.28 10^3/uL (1.8-7.7) 07/22/24 18:12 Lymph # (Auto) 2.4 10^3/uL (0.8-4.8) 07/22/24 18:12 Winn # (Auto) 0.5 10^3/uL (0.2-0.9) 07/22/24 18:12 Eos # (Auto) 0.1 10^3/uL (0.0-0.8) 07/22/24 18:12 Baso # (Auto) 0.0 10^3/uL (0.0-0.1) 07/22/24 18:12 Nucleated RBC % (auto) 0 % 07/22/24 18:12 Nucleated RBCs # 0.0 /100WBC 07/22/24 18:12 Sodium 143 mmol/L (136-145) 07/22/24 18:12 Potassium 4.1 mmol/L (3.5-5.1) 07/22/24 18:12 Chloride 105 mmol/L (98-107) 07/22/24 18:12 Carbon Dioxide 21 mmol/L (22-29) L 07/22/24 18:12 Anion Gap 21.1 (5-19) H 07/22/24 18:12 BUN 22 mg/dL (8-23) 07/22/24 18:12 Creatinine 0.6 mg/dL (0.5-0.9) 07/22/24 18:12 GFR Calculation Not Reportable 07/22/24 18:12 Glucose 96 mg/dL (65-115) 07/22/24 18:12 Calculated Osmolality 299 mOsm/kg (285-295) H 07/22/24 18:12 Lactic Acid 1.2 mmol/L (0.5-2.2) 07/22/24 18:12 Calcium 9.5 mg/dL (8.5-10.5) 07/22/24 18:12 Magnesium 2.4 mg/dL (1.7-2.3) H 07/22/24 18:12 Total Bilirubin 0.2 mg/dL (0.15-1.2) 07/22/24 18:12 AST 19 U/L (0-32) 07/22/24 18:12 ALT 9 U/L (0-33) 07/22/24 18:12 Alkaline Phosphatase 90 U/L (35-105) 07/22/24 18:12 Total Protein 6.6 g/dL (6.6-8.7) 07/22/24 18:12 Albumin 4.0 g/dL (3.5-5.2) 07/22/24 18:12 Globulin 2.6 g/dL (1.3-4.6) 07/22/24 18:12 Urine Color Yellow (Yellow) 07/22/24 18: Urine Appearance Cloudy (CLEAR) A 07/22/24 18:25 Urine pH 5.0 (5-7) 07/22/24 18:25 Ur Specific [place] 1.029 (1.005-1.030) 07/22/24 18: Urine Protein Trace (Negative) A 07/22/24 18: Urine Glucose (UA) Negative (Normal) 07/22/24 18: Urine Ketones Trace (Negative) 07/22/24 18:25 Urine Blood Negative (Negative) 07/22/24 18: Urine Nitrate Negative (Negative) 07/22/24 18: Urine Bilirubin Negative (Negative) 07/22/24 18:25 Urine Urobilinogen 1.0 mg/dL (Negative) 07/22/24 18:25 Ur Leukocyte Esterase Negative (Negative) 07/22/24 18:25 Urine RBC 0-2 /hpf (0-2) 07/22/24 18:25 Urine WBC 25-40 /hpf (0-5) H 07/22/24 18:25 Ur Squamous Epith Cells 0-5 /hpf (0-5) 07/22/24 18:25 Amorphous Sediment Not Reportable 07/22/24 18:25 Urine Bacteria Exceeds /hpf (NONE) 07/22/24 18:25 Hyaline Casts 3.30 /lpf 07/22/24 18:25 Influenza A (PCR) Negative (Negative) 07/22/24 18:30 Influenza Type B (PCR) Negative (Negative) 07/22/24 18:30 RSV (PCR) Negative (Negative) 07/22/24 18:30 SARS-CoV-2 (PCR) Negative (Negative) 07/22/24 18:30 All radiology interpretation(s) finalized by discharge EKG Data EKG 1: I personally reviewed and interpreted this EKG as follows: EKG interpretation date: 07/22/24 EKG interpretation time: 18:24 Prior EKG tracings: available for review Interpretation: Normal sinus rhythm. Rate 75. Normal axis. Normal intervals. No significant change from prior. No acute ST segment changes. Computer generated interpretation: Chest X-Ray 07/22/24 17:49 IMPRESSION: No acute findings. Discharge Plan Discharge Patient Disposition: Home Clinical Impression: Urinary tract infection Qualifiers: Urinary tract infection type: acute cystitis Hematuria presence: without hematuria Qualified Code(s): N30.00 - Acute cystitis without hematuria Depression Qualifiers: Depression Type: unspecified Qualified Code(s): F32.A - Depression, unspecified Condition: Stable Prescriptions: New cefdinir 300 mg capsule 300 mg PO BID 10 Days Qty: 20 0RF No Action (DME) lumbar support brace See Rx Instructions .Route .MEDSUPPLY Qty: 1 0RF Rx Instructions: As directed sennosides-docusate sodium [Senna Plus] 8.6-50 mg tablet 1 tab-cap PO BID 7 Days Qty: 14 0RF magnesium gluconate [Mag-G] 27 mg magnesium (500 mg) tablet 27 mg PO BID Qty: 60 5RF cetirizine [Zyrtec] 10 mg tablet 10 mg PO DAILY PRN (Reason: allergy symptoms) Qty: 30 0RF ketotifen fumarate [Alaway] 0.025 % (0.035 %) drops 1 drp ophthalmic (eye) BID Qty: 5 0RF Rx Instructions: administer at least 8 hours apart acetaminophen [Tylenol Arthritis] 650 mg Tablet Extended Release 650 mg PO Q12H PRN (Reason: Pain) calcium carbonate-vitamin D3 [Os-Zak 500 + D3] 500 mg-15 mcg (600 unit) tablet 1 tab PO BID acetaminophen 500 mg Tablet 500 mg PO Q6H PRN (Reason: Pain) simvastatin 10 mg tablet 10 mg PO BEDTIME BUILDING 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 IN THE EVENING. Discharge Orders: Discharge ED (Routine); Ordered 07/22/24 Ordered By: Balta Huertas Referrals: Trenton Mckeon, CLIENT FINANCE ANALYST [Primary Care Provider] - Patient Instructions: Urinary Tract Infection in Older Adults (ED) Activity Restrictions/Additional Instructions: Continue taking your home medications. Take antibiotics as prescribed. Drink plenty of fluids. Drink plenty of fluids. Follow-up with your regular doctor. Please see the attached patient instructions for further education. Return with any thoughts of wanting to hurt yourself or others, hallucinations, or any other concerns in this regards. Print Language: Citizen Of [place] Coding Level of Care Code ED Support Analyst for Bharat Baxter
[2024-07-22 18:31] LABS: Hematocrit 40.6 % (36-47); Mean Corpuscular HGB Conc 32.5 g/dL (30-55); Mean Corpuscular Hemoglobin 29.4 pg (27-33); Mean Corpuscular Volume 90.4 fl (85-98); Mean Platelet Volume 9.9 fL (7.4-10.4); Nucleated Red Blood Cells % 0 %; Platelet Count 361 10^3/cmm (157-399); Red Blood Count 4.49 10^6/uL (3.85-5.65); Red Cell Distribution Width 14.2 % (12.1-15.1); White Blood Count 8.23 10^3/uL (3.29-11.43)
[2024-07-22 18:33] VITALS: BP 156/92; PULSE 77; O2SAT 97
[2024-07-22 18:33] LABS: Bilirubin Urine Negative (Negative); Blood Urine Negative (Negative); Glucose Urine UA Negative (Normal); Ketones Urine Trace (Negative); Leukocyte Esterase Urine Negative (Negative); Nitrate Urine Negative (Negative); Protein Urine Trace (Negative); Specific Gravity, Urine 1.029 (1.005-1.030); Urine Appearance Cloudy (CLEAR); Urine Color Yellow (Yellow)
[2024-07-22 18:36] LABS: Add Urine Microscopic? YES; Bacteria Urine EXCEEDS /hpf; RBC Urine 0-2 /hpf (0-2); Squamous Epithelial Cell Urine 0-5 /hpf (0-5)
[2024-07-22 19:20] LABS: Influenza A NEGATIVE (Negative); Influenza B NEGATIVE (Negative); Respiratory Syncytial Virus Ce NEGATIVE (Negative); SARS-CoV-2 PCR NEGATIVE (Negative)
[2024-07-22 19:24] LABS: UA Slide Review UA Slide Review Perf
[2024-07-22 19:26] LABS: Add Urine Culture? Yes; WBC Urine 25-40 /hpf (0-5)
[2024-07-22 19:26] LABS: Alkaline Phosphatase 90 U/L (35-105); Blood Urea Nitrogen 22 mg/dL (8-23); Calcium 9.5 mg/dL (8.5-10.5); Carbon Dioxide 21 mmol/L (22-29); Chloride 105 mmol/L (98-107); Creatinine Clr Calc Pharmacy 40.7674; Globulin 2.6 g/dL (1.3-4.6); Glucose 96 mg/dL (65-115); Magnesium 2.4 mg/dL (1.7-2.3); Osmolality Calculated 299 mOsm/kg (285-295); Sodium 143 mmol/L (136-145); Total Bilirubin 0.2 mg/dL (0.15-1.2); Total Protein 6.6 g/dL (6.6-8.7)
[2024-07-22 19:27] LABS: Lactic Sepsis W/Reflex 1.2 mmol/L (0.5-2.2)
[2024-07-22 19:28] LABS: Anion Gap 21.1 (5-19); Aspartate Amino Transferase 19 U/L (0-32); Potassium 4.1 mmol/L (3.5-5.1)
[2024-07-22 19:29] LABS: Alanine Aminotransferase 9 U/L (0-33)
[2024-07-22 19:31] LABS: Basophils % 0.5 %; Eosinophils # 0.1 10^3/uL (0.0-0.8); Eosinophils % 1.6 %; Lymphocytes # 2.4 10^3/uL (0.8-4.8); Lymphocytes % 28.2 %; Monocytes # 0.5 10^3/uL (0.2-0.9); Monocytes % 6.2 %; Neutrophils # 5.28 10^3/uL (1.8-7.7); Neutrophils % 63.1 %
[2024-07-22 20:02] VITALS: BP 156/96; PULSE 78; RESP 18; O2SAT 98
[2024-07-22] MEDS: cefTRIAXone 1,000 mg SDV 1000 MG IVP (20:02)
[2024-07-22 20:09] VITALS: BP 156/96; PULSE 78; RESP 18; O2SAT 98
== END 2024-07-22 20:54 | disposition home or self-care (01) ==
PROVIDERS: Emergency Provider Physician Assistant; PCP Registered Nurse
DX: N30.00 Acute cystitis without hematuria (principal); F32.A Depression, unspecified; I10 Essential (primary) hypertension
CPT/HCPCS: 36415; 71045; 80053; 81001; 83605; 83735; 85025; 87086; 87637; 93005; 96374; 99285; J0696

== ENCOUNTER 2024-10-02 21:44 | Inpatient (IN) | payer MEDICARE, OTHER, MEDICAID, SELFPAY ==
[2024-10-02 21:54] VITALS: BP 119/72; PULSE 99; RESP 18; TEMP 36.4; O2SAT 85; BMI 17.2
--- NOTE | 2024-10-02 22:06 | ECG_ITS ---
[facility] Test Date: 2024-10-02 Pat Name: Rosemary Nelson Department: Room: Gender: Female Mother Helper: : 1945 Requested By: Real Rivera Order Number: [id number] Johnson MD: Georgi Hunt M.D. Measurements Intervals [place] Rate: 96 P: 59 DC: 182 QRS: 67 QRSD: 90 T: 22 QT: 355 QTc: 450 Interpretive Statements SINUS RHYTHM NONSPECIFIC T-WAVE ABNORMALITY Compared to ECG 07/22/2024 18:23:58 T-wave abnormality now present Baseline artifacts, need to repeat Electronically Signed On 10-03-2024 16:26:41 CDT by Georgi Hunt M.D. [email or web address]
--- NOTE | 2024-10-02 22:06 | XRR_ITS ---
PROCEDURE INFORMATION: Exam: XR Chest Exam date and time: 10/02/2024 10:13 PM Age: 79 years old Clinical indication: Shortness of breath; Additional info: SOB, hypoxia TECHNIQUE: Imaging protocol: Radiologic exam of the chest. Views: 1 view. COMPARISON: CR XR chest 1V portable [id number] 07/22/2024 5:54 PM FINDINGS: Lungs: Unremarkable. No consolidation. Pleural spaces: Unremarkable. No pleural effusion. No pneumothorax. Heart/Mediastinum: Stable cardiomediastinal silhouette. Bones/joints: Vertebral augmentation changes noted within the upper lumbar spine. Surgical anchors in the right humeral head. XR/XR chest 1V portable [id number] IMPRESSION: No acute cardiopulmonary process.
--- NOTE | 2024-10-02 22:37 | W.ED.SOB ---
Documented by User: EDE Gramajo 10/03/24 01:30 HPI - SOB/Dyspnea General: Chief Complaint: Shortness of Breath/Dyspnea Stated Complaint: SOB Time Seen by Provider: 10/02/24 22:01 Source: patient Mode of arrival: EMS Limitations: other (dementia) History of Present Illness: HPI Narrative: 79yo female presents from [facility] for hypoxia. Per EMS, room air oxygen was 83 to 86% at the [facility]. long-term is also requesting a UA. Oxygen was in the mid 90s with 2 L nasal cannula. She did receive a breathing treatment and route. Patient does have a history of dementia and [facility] states mentation is normal. Patient's denies eating or drinking prior to onset of coughing. States that she has been coughing. Denies chest pain, abdominal pain, vomiting, diarrhea, any other concerns at this time. No family present at time of exam Related Data Home Medications ?Medication ?Instructions ?Recorded ?Confirmed acetaminophen 500 mg tablet 500 mg PO Q6H PRN Pain 04/07/23 11/29/23 acetaminophen 650 mg 650 mg PO Q12H PRN Pain 04/24/23 11/29/23 tablet,extended release calcium 500 mg (as 1 tab PO BID 04/24/23 11/29/23 carbonate)-vitamin D3 15 mcg (600 unit) tablet (Os-Zak 500 + D3) simvastatin 10 mg tablet 10 mg PO BEDTIME 11/29/23 11/29/23 thyroid (pork) 30 mg tablet (CAP MACHINE OPERATOR See Rx Instructions .Route .COMPLEX 11/29/23 11/29/23 Thyroid) Previous Rx's ?Medication ?Instructions ?Recorded lumbar support brace #1 ea 10/20/22 magnesium gluconate 27 mg 27 mg PO BID #60 tabs 05/03/23 magnesium (500 mg) tablet (Mag-G) sennosides 8.6 mg-docusate sodium 1 tab-cap PO BID 7 days #14 tabs 05/03/23 50 mg tablet (Senna Plus) cetirizine 10 mg tablet (Zyrtec) 10 mg PO DAILY PRN allergy 06/21/23 symptoms #30 tabs ketotifen fumarate 0.025 % (0.035 1 drp ophthalmic (eye) BID #5 mL 06/21/23 %) eye drops (Alaway) Allergies Allergy/AdvReac Type Severity Reaction Status Date / Time meperidine (From Demerol) AdvReac Severe gastric Verified 11/29/23 11:09 upset and headache Opioids - Morphine Analogues AdvReac Severe gastric Verified 11/29/23 11:09 upset and headache Review of Systems General: Reports: ROS unobtainable due to mental status PFSH ED PFSH: Medical History Neuropathic pain Environmental and seasonal allergies Enrolled in chronic care management Gout Osteopenia Hx of migraine headaches Dry eye syndrome, bilateral Altered gait Small vessel disease, 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 Essential hypertension Surgical History Status post left foot surgery after fracture History of arthroscopic knee surgery Left knee History of hand surgery Left 4th metacarpal fracture Status post surgical removal of acromioclavicular joint 2019 History of cervical spinal surgery History of hysterectomy with oophorectomy Family History Mother Stroke Hypothyroidism Hypertension Father Heart disease Sister Cancer Lung and breast Other CAD (coronary artery disease) Diabetes Social History Smoking and tobacco/nicotine status: never used tobacco/nicotine Second hand smoke exposure: No Alcohol intake: never Substance/Drug Use: never Adopted: No Caregiver/support person: No Lives independently: No Household members: significant other Housing: House Marital status: Life Partner service: No Current occupational status: unemployed Sexually active: Yes Do you think of yourself as: Straight/Heterosexual Current gender identity: Female Physical Exam Const: COMMON NORMALS: alert GENERAL APPEARANCE: cooperative and frail appearing ORIENTATION/CONSCIOUSNESS: Yes awake OTHER: Patient is sitting upright on the stretcher with nasal cannula in place. She is interactive with exam appropriately. No family is at bedside HENMT: COMMON NORMALS: normocephalic and atraumatic HEAD & SCALP: normocephalic and atraumatic Chest: CHEST: Yes Symmetrical chest wall rise Resp: EFFORT & INSPECTION: Yes symmetric chest movement AUSCULTATION: crackles Laterality: left and anterior Cardio: COMMON NORMALS: regular rate RATE: regular rate GI: COMMON NORMALS: Soft to palpation PALPATION: Yes Soft to palpation Neuro: SENSORIUM/ORIENTATION: Yes alert Psych: ATTITUDE: Yes calm Course Vital Signs: Vital signs: Vital Signs Temperature 98.8 F 10/03/24 01:30 Pulse Rate 95 10/03/24 03:00 Respiratory Rate 21 H 10/03/24 03:00 Blood Pressure 130/74 10/03/24 03:00 Pulse Oximetry 92 10/03/24 03:00 Oxygen Delivery Me thod Nasal Cannula 10/03/24 03:00 Oxygen Flow Rate 3 10/03/24 03:00 MDM - SOB/Dyspnea Medical Decision Making 79yo female presents from [facility] for hypoxia. Per EMS, room air oxygen was 83 to 86% at the [facility]. Patient's denies eating or drinking prior to onset of coughing. States that she has been coughing. Denies chest pain, abdominal pain, vomiting, diarrhea, any other concerns at this time. No family present at time of exam. Patient is chronically ill-appearing. Will proceed with EKG, labs, and chest x-ray. EKG does show sinus rhythm with a vent rate of 96. Chest x-ray with no acute cardiopulmonary process. Leukocytosis noted with a white blood cell count of 13.98. Hemoglobin is slightly low at 10.80. BUN is elevated at 27 with an elevated creatinine of 1.0 compared to previous of creatinine at 0.6 on 07/22/2024. Awaiting UA. Dr. Shi to assume care due to change of shift. Likely admit due to hypoxia and concern for left lower lobe pneumonia per exam Differential Diagnosis Likely acute exacerbation of chronic obstructive airways disease and community acquired pneumonia Medical Records I reviewed the patient's medical records. Lab Data I reviewed the patient's lab results. 10/02/24 22:50 10/02/24 22:50 Labs/Radiology: Radiology Impressions Chest X-Ray 10/02/24 22:06 IMPRESSION: No acute cardiopulmonary process. Laboratory Results WBC 13.98 10^3/uL (3.29-11.43) H 10/02/24 22:50 RBC 3.58 10^6/uL (3.85-5.65) L 10/02/24 22:50 Hgb 10.80 g/dL (11.27-16.99) L 10/02/24 22:50 Hct 33.2 % (36-47) L 10/02/24 22:50 MCV 92.7 fl (85-98) 10/02/24 22:50 MCH 30.2 pg (27-33) 10/02/24 22:50 MCHC 32.5 g/dL (30-55) 10/02/24 22:50 RDW 13.7 % (12.1-15.1) 10/02/24 22:50 Plt Count 222 10^3/cmm (157-399) 10/02/24 22:50 MPV 10.0 fL (7.4-10.4) 10/02/24 22:50 Neut % (Auto) 81.5 % 10/02/24 22:50 Lymph % (Auto) 13.4 % 10/02/24 22:50 Mckinley % (Auto) 4.2 % 10/02/24 22:50 Eos % (Auto) 0.3 % 10/02/24 22:50 Baso % (Auto) 0.3 % 10/02/24 22:50 Neut # (Auto) 11.39 10^3/uL (1.8-7.7) H 10/02/24 22:50 Lymph # (Auto) 1.9 10^3/uL (0.8-4.8) 10/02/24 22:50 Mckinley # (Auto) 0.6 10^3/uL (0.2-0.9) 10/02/24 22:50 Eos # (Auto) 0.0 10^3/uL (0.0-0.8) 10/02/24 22:50 Baso # (Auto) 0.0 10^3/uL (0.0-0.1) 10/02/24 22:50 Nucleated RBC % (auto) 0 % 10/02/24:50 Nucleated RBCs # 0.0 /100WBC 10/02/24 22:50 Sodium 135 mmol/L (136-145) L 10/02/24 22:50 Potassium 3.7 mmol/L (3.5-5.1) 10/02/24 22:50 Chloride 99 mmol/L (98-107) 10/02/24 22:50 Carbon Dioxide 25 mmol/L (22-29) 10/02/24 22:50 Anion Gap 14.7 (5-19) 10/02/24 22:50 BUN 27 mg/dL (8-23) H 10/02/24 22:50 Creatinine 1.0 mg/dL (0.5-0.9) H 10/02/24 22:50 GFR Calculation Not Reportable 10/02/24 22:50 Glucose 107 mg/dL (65-115) 10/02/24 22:50 Calculated Osmolality 286 mOsm/kg (285-295) 10/02/24 22:50 Lactic Acid 1.2 mmol/L (0.5-2.2) 10/02/24 22:50 Calcium 9.0 mg/dL (8.5-10.5) 10/02/24 22:50 Total Bilirubin 0.4 mg/dL (0.15-1.2) 10/02/24 22:50 AST 21 U/L (0-32) 10/02/24 22:50 ALT 13 U/L (0-33) 10/02/24 22:50 Alkaline Phosphatase 88 U/L (35-105) 10/02/24 22:50 Total Protein 7.1 g/dL (6.6-8.7) 10/02/24 22:50 Albumin 3.5 g/dL (3.5-5.2) 10/02/24 22:50 Globulin 3.6 g/dL (1.3-4.6) 10/02/24 22:50 Urine Color Yellow (Yellow) 10/03/24 00:25 Urine Appearance Clear (CLEAR) 10/03/24 00:25 Urine pH 6.0 (5-7) 10/03/24 00:25 Ur Specific Norton 1.021 (1.005-1.030) 10/03/24 00:25 Urine Protein Trace (Negative) A 10/03/24 00:25 Urine Glucose (UA) Negative (Normal) 10/03/24 00:25 Urine Ketones Trace (Negative) 10/03/24 00:25 Urine Blood Negative (Negative) 10/03/24 00:25 Urine Nitrate Negative (Negative) 10/03/24 00:25 Urine Bilirubin Negative (Negative) 10/03/24 00:25 Urine Urobilinogen 1.0 mg/dL (Negative) 10/03/24 00:25 Ur Leukocyte Esterase Trace (Negative) A 10/03/24 00:25 Urine RBC 0-2 /hpf (0-2) 10/03/24 00:25 Urine WBC 0-5 /hpf (0-5) 10/03/24 00:25 Ur Squamous Epith Cells 0-5 /hpf (0-5) 10/03/24 00:25 Amorphous Sediment Not Reportable 10/03/24 00:25 Urine Bacteria None seen /hpf (NONE) 10/03/24 00:25 Hyaline Casts 0.81 /lpf 10/03/24 00:25 Influenza A (PCR) Negative (Negative) 10/02/24 22:29 Influenza Type B (PCR) Negative (Negative) 10/02/24 22:29 RSV (PCR) Negative (Negative) 10/02/24 22:29 SARS-CoV-2 (PCR) Negative (Negative) 10/02/24 22:29 All radiology interpretation(s) finalized by discharge Discharge Plan Discharge Patient Disposition: Admitted As Inpatient Clinical Impression: Hypoxia Pneumonia Qualifiers: Pneumonia type: due to unspecified organism Laterality: left Lung location: lower lobe of lung Qualified Code(s): J18.9 - Pneumonia, unspecified organism Condition: Stable Coding Level of Care Code ED Assembly Machine Offbearer for Chg Fwd Documented by User: Hay Shi DO 10/03/24 03:35 HPI - SOB/Dyspnea General: Chief Complaint: Shortness of Breath/Dyspnea Stated Complaint: SOB Time Seen by Provider: 10/02/24 22:01 Related Data Home Medications ?Medication ?Instructions ?Recorded ?Confirmed acetaminophen 500 mg tablet 500 mg PO Q6H PRN Pain 04/07/23 11/29/23 acetaminophen 650 mg 650 mg PO Q12H PRN Pain 04/24/23 11/29/23 tablet,extended release calcium 500 mg (as 1 tab PO BID 04/24/23 11/29/23 carbonate)-vitamin D3 15 mcg (600 unit) tablet (Os-Zak 500 + D3) simvastatin 10 mg tablet 10 mg PO BEDTIME 11/29/23 11/29/23 thyroid (pork) 30 mg tablet (CAP MACHINE OPERATOR See Rx Instructions .Route .COMPLEX 11/29/23 11/29/23 Thyroid) Previous Rx's ?Medication ?Instructions ?Recorded lumbar support brace #1 ea 10/20/22 magnesium gluconate 27 mg 27 mg PO BID #60 tabs 05/03/23 magnesium (500 mg) tablet (Mag-G) sennosides 8.6 mg-docusate sodium 1 tab-cap PO BID 7 days #14 tabs 05/03/23 50 mg tablet (Senna Plus) cetirizine 10 mg tablet (Zyrtec) 10 mg PO DAILY PRN allergy 06/21/23 symptoms #30 tabs ketotifen fumarate 0.025 % (0.035 1 drp ophthalmic (eye) BID #5 mL 06/21/23 %) eye drops (Alaway) Allergies Allergy/AdvReac Type Severity Reaction Status Date / Time meperidine (From Demerol) AdvReac Severe gastric Verified 11/29/23 11:09 upset and headache Opioids - Morphine Analogues AdvReac Severe gastric Verified 11/29/23 11:09 upset and headache PFSH ED PFSH: Medical History Neuropathic pain Environmental and seasonal allergies Enrolled in chronic care management Gout Osteopenia Hx of migraine headaches Dry eye syndrome, bilateral Altered gait Small vessel disease, 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 Essential hypertension Surgical History Status post left foot surgery after fracture History of arthroscopic knee surgery Left knee History of hand surgery Left 4th metacarpal fracture Status post surgical removal of acromioclavicular joint 2019 History of cervical spinal surgery History of hysterectomy with oophorectomy Family History Mother Stroke Hypothyroidism Hypertension Father Heart disease Sister Cancer Lung and breast Other CAD (coronary artery disease) Diabetes Social History Smoking and tobacco/nicotine status: never used tobacco/nicotine Second hand smoke exposure: No Alcohol intake: never Substance/Drug Use: never Adopted: No Caregiver/support person: No Lives independently: No Household members: significant other Housing: House Marital status: Life Partner service: No Current occupational status: unemployed Sexually active: Yes Do you think of yourself as: Straight/Heterosexual Current gender identity: Female Course Vital Signs: Vital signs: Vital Signs Temperature 98.8 F 10/03/24 01:30 Pulse Rate 95 10/03/24 03:00 Respiratory Rate 21 H 10/03/24 03:00 Blood Pressure 130/74 10/03/24 03:00 Pulse Oximetry 92 10/03/24 03:00 Oxygen Delivery Me thod Nasal Cannula 10/03/24 03:00 Oxygen Flow Rate 3 10/03/24 03:00 MDM - SOB/Dyspnea Medical Decision Making 79yo female presents from [facility] for hypoxia. Per EMS, room air oxygen was 83 to 86% at the [facility]. Patient's denies eating or drinking prior to onset of coughing. States that she has been coughing. Denies chest pain, abdominal pain, vomiting, diarrhea, any other concerns at this time. No family present at time of exam. Patient is chronically ill-appearing. Will proceed with EKG, labs, and chest x-ray. EKG does show sinus rhythm with a vent rate of 96. Chest x-ray with no acute cardiopulmonary process. Leukocytosis noted with a white blood cell count of 13.98. Hemoglobin is slightly low at 10.80. BUN is elevated at 27 with an elevated creatinine of 1.0 compared to previous of creatinine at 0.6 on 07/22/2024. Awaiting UA. Dr. Shi to assume care due to change of shift. Likely admit due to hypoxia and concern for left lower lobe pneumonia per exam 0330: Assumed care from VALERIE Rivera. Patient is awaiting a urinalysis. Patient will likely need to be admitted for hypoxia from pneumonia. Urinalysis globally unremarkable. Contacted the hospitalist for admission. She was in agreement this patient needed to be admitted for pneumonia and hypoxia. After discussion there was concern for possible aspiration antibiotic choices directed towards coverage for both atypical pneumonias and aspiration. Lab Data 10/02/24 22:50 10/02/24 22:50 Labs/Radiology: Radiology Impressions Chest X-Ray 10/02/24 22:06 IMPRESSION: No acute cardiopulmonary process. Laboratory Results WBC 13.98 10^3/uL (3.29-11.43) H 10/02/24 22:50 RBC 3.58 10^6/uL (3.85-5.65) L 10/02/24:50 Hgb 10.80 g/dL (11.27-16.99) L 10/02/24:50 Hct 33.2 % (36-47) L 10/02/24:50 MCV 92.7 fl (85-98) 10/02/24:50 MCH 30.2 pg (27-33) 10/02/24: MCHC 32.5 g/dL (30-55) 10/02/24: RDW 13.7 % (12.1-15.1) 10/02/24: Plt Count 222 10^3/cmm (157-399) 10/02/24: MPV 10.0 fL (7.4-10.4) 10/02/24 22:50 Neut % (Auto) 81.5 % 10/02/24 22:50 Lymph % (Auto) 13.4 % 10/02/24 22:50 Mckinley % (Auto) 4.2 % 10/02/24:50 Eos % (Auto) 0.3 % 10/02/24:50 Baso % (Auto) 0.3 % 10/02/24:50 Neut # (Auto) 11.39 10^3/uL (1.8-7.7) H 10/02/24 22:50 Lymph # (Auto) 1.9 10^3/uL (0.8-4.8) 10/02/24 22:50 Mckinley # (Auto) 0.6 10^3/uL (0.2-0.9) 10/02/24:50 Eos # (Auto) 0.0 10^3/uL (0.0-0.8) 10/02/24:50 Baso # (Auto) 0.0 10^3/uL (0.0-0.1) 10/02/24:50 Nucleated RBC % (auto) 0 % 10/02/24:50 Nucleated RBCs # 0.0 /100WBC 10/02/24 22:50 Sodium 135 mmol/L (136-145) L 05/22/25 22:50 Potassium 3.7 mmol/L (3.5-5.1) 10/02/24 22:50 Chloride 99 mmol/L (98-107) 10/02/24 22:50 Carbon Dioxide 25 mmol/L (22-29) 10/02/24 22:50 Anion Gap 14.7 (5-19) 10/02/24 22:50 BUN 27 mg/dL (8-23) H 10/02/24 22:50 Creatinine 1.0 mg/dL (0.5-0.9) H 10/02/24 22:50 GFR Calculation Not Reportable 10/02/24 22:50 Glucose 107 mg/dL (65-115) 10/02/24 22:50 Calculated Osmolality 286 mOsm/kg (285-295) 10/02/24 22:50 Lactic Acid 1.2 mmol/L (0.5-2.2) 10/02/24 22:50 Calcium 9.0 mg/dL (8.5-10.5) 10/02/24 22:50 Total Bilirubin 0.4 mg/dL (0.15-1.2) 10/02/24 22:50 AST 21 U/L (0-32) 10/02/24 22:50 ALT 13 U/L (0-33) 10/02/24 22:50 Alkaline Phosphatase 88 U/L (35-105) 10/02/24 22:50 Total Protein 7.1 g/dL (6.6-8.7) 10/02/24 22:50 Albumin 3.5 g/dL (3.5-5.2) 10/02/24 22:50 Globulin 3.6 g/dL (1.3-4.6) 10/02/24 22:50 Urine Color Yellow (Yellow) 10/03/24 00:25 Urine Appearance Clear (CLEAR) 10/03/24 00:25 Urine pH 6.0 (5-7) 10/03/24 00:25 Ur Specific Norton 1.021 (1.005-1.030) 10/03/24 00:25 Urine Protein Trace (Negative) A 10/03/24 00:25 Urine Glucose (UA) Negative (Normal) 10/03/24 00:25 Urine Ketones Trace (Negative) 10/03/24 00:25 Urine Blood Negative (Negative) 10/03/24 00:25 Urine Nitrate Negative (Negative) 10/03/24 00:25 Urine Bilirubin Negative (Negative) 10/03/24 00:25 Urine Urobilinogen 1.0 mg/dL (Negative) 10/03/24 00:25 Ur Leukocyte Esterase Trace (Negative) A 10/03/24 00:25 Urine RBC 0-2 /hpf (0-2) 10/03/24 00:25 Urine WBC 0-5 /hpf (0-5) 10/03/24 00:25 Ur Squamous Epith Cells 0-5 /hpf (0-5) 10/03/24 00:25 Amorphous Sediment Not Reportable 10/03/24 00:25 Urine Bacteria None seen /hpf (NONE) 10/03/24 00:25 Hyaline Casts 0.81 /lpf 10/03/24 00:25 Influenza A (PCR) Negative (Negative) 10/02/24 22:29 Influenza Type B (PCR) Negative (Negative) 10/02/24 22:29 RSV (PCR) Negative (Negative) 10/02/24 22:29 SARS-CoV-2 (PCR) Negative (Negative) 10/02/24 22:29 Discharge Plan Discharge Patient Disposition: Admitted As Inpatient Clinical Impression: Hypoxia Pneumonia Qualifiers: Pneumonia type: due to unspecified organism Laterality: left Lung location: lower lobe of lung Qualified Code(s): J18.9 - Pneumonia, unspecified organism Condition: Stable Coding Level of Care Code ED Assembly Machine Offbearer for Bharat Baxter
--- NOTE | 2024-10-02 22:46 | PC.NURSE ---
Pt gave consent to speak to daughter, Jojo Nelson. contact information is below as follows: Jojo Nelson [phone]
[2024-10-02 23:04] LABS: Basophils % 0.3 %; Eosinophils % 0.3 %; Hematocrit 33.2 % (36-47); Lymphocytes # 1.9 10^3/uL (0.8-4.8); Lymphocytes % 13.4 %; Mean Corpuscular HGB Conc 32.5 g/dL (30-55); Mean Corpuscular Hemoglobin 30.2 pg (27-33); Mean Corpuscular Volume 92.7 fl (85-98); Monocytes # 0.6 10^3/uL (0.2-0.9); Monocytes % 4.2 %; Neutrophils # 11.39 10^3/uL (1.8-7.7); Neutrophils % 81.5 %; Nucleated Red Blood Cells % 0 %; Platelet Count 222 10^3/cmm (157-399); Red Blood Count 3.58 10^6/uL (3.85-5.65); Red Cell Distribution Width 13.7 % (12.1-15.1); White Blood Count 13.98 10^3/uL (3.29-11.43)
[2024-10-02 23:09] LABS: Influenza A NEGATIVE (Negative); Influenza B NEGATIVE (Negative); Respiratory Syncytial Virus Ce NEGATIVE (Negative); SARS-CoV-2 PCR NEGATIVE (Negative)
[2024-10-02 23:17] LABS: Alanine Aminotransferase 13 U/L (0-33); Albumin Level 3.5 g/dL (3.5-5.2); Alkaline Phosphatase 88 U/L (35-105); Anion Gap 14.7 (5-19); Aspartate Amino Transferase 21 U/L (0-32); Blood Urea Nitrogen 27 mg/dL (8-23); Carbon Dioxide 25 mmol/L (22-29); Chloride 99 mmol/L (98-107); Creatinine Clr Calc Pharmacy 31.5938; Globulin 3.6 g/dL (1.3-4.6); Glucose 107 mg/dL (65-115); Osmolality Calculated 286 mOsm/kg (285-295); Potassium 3.7 mmol/L (3.5-5.1); Sodium 135 mmol/L (136-145); Total Bilirubin 0.4 mg/dL (0.15-1.2); Total Protein 7.1 g/dL (6.6-8.7)
[2024-10-02 23:18] LABS: Lactic Sepsis W/Reflex 1.2 mmol/L (0.5-2.2)
[2024-10-03] VITALS (13 sets, daily range): BP systolic 112–169; BP diastolic 65–94; PULSE 65–100; RESP 15–21; TEMP 36.4–37.1; O2SAT 92–94; BMI 17.2
[2024-10-03 00:39] LABS: Bilirubin Urine Negative (Negative); Blood Urine Negative (Negative); Glucose Urine UA Negative (Normal); Ketones Urine Trace (Negative); Leukocyte Esterase Urine Trace (Negative); Nitrate Urine Negative (Negative); Protein Urine Trace (Negative); Specific Gravity, Urine 1.021 (1.005-1.030); Urine Appearance Clear (CLEAR); Urine Color Yellow (Yellow)
[2024-10-03 00:43] LABS: Add Urine Microscopic? YES; Bacteria Urine None Seen /hpf; Hyaline Casts Urine 0.81 /lpf; RBC Urine 0-2 /hpf (0-2); Squamous Epithelial Cell Urine 0-5 /hpf (0-5); WBC Urine 0-5 /hpf (0-5)
[2024-10-03 01:09] LABS: UA Slide Review UA Slide Review Perf
[2024-10-03] MEDS: piperacillin-tazobactam 3.375 GM in sodium chloride 0.9% (plus) 50 ML IV ×3 (03:41→20:08)
[2024-10-03] MEDS: AZITHROMYCIN ADD-Vantage 500 MG in 0.9% NaCl ADD-Vantage 250 ML 250 MG IV (04:03)
--- NOTE | 2024-10-03 07:52 | P.HP_ITS ---
Providers/Chief Complaint 2 Admitting Physician: Katlyn Richards MD Primary Care Provider: EDE Hawthorne Chief Complaint: SOB with hypoxemia History of Present Illness Rosemary Nelson is a 79 year old female who resides at the senior care was noted to be short of breath. Because of shortness of breath patient was brought to the emergency room. At the emergency room patient was found to be on room air hypoxemia. Patient initially was placed on 3 L of oxygen with a saturation of 92%. Patient is not on any oxygen at home. Clinically patient examination as though she has some adventitious breath sounds on the left lower aspect of the lung with abnormal lung sounds. Chest x-ray were unremarkable. Patient does not appear to be in distress. Empiric antibiotics was initiated in this setting because of leukocytosis at 13,000 in an 79-year-old female. Upon my evaluation of the patient patient was in the room without her oxygen she had pulled it out and on the screen she was still registering 93% on a practical room air. I placed the 2 L of oxygen on her and she was doing 93 to 95%. Patient has been diagnosed with pneumonia on a clinical ground. With a higher index of suspicion of aspiration for this reason Zosyn was chosen along with azithromycin for atypicals. Review of Systems 2 General: Reports: 10 or more systems reviewed and unremarkable except in HPI and below Medications/Allergies Home Medications ?Medication ?Instructions ?Recorded ?Confirmed ?Last Taken ?Type lumbar support brace #1 ea 10/20/22 10/03/24 Unkn own Rx acetaminophen 500 mg tablet 1,000 mg PO Q8H PRN Pain 1 06/07/22 10/03/24 Unknown History bisacodyl 10 mg rectal suppository 10 mg NJ DAILY PRN Constipation 10/03/24 10/03/24 Unknown History calcium carbonate (Tums) 500 mg PO Q4-5H PRN Acid Ref lux 10/03/24 10/03/24 Unknown History docusate sodium 100 mg capsule 100 mg PO BID 10/03/24 10/03/24 Unknown History famotidine 20 mg tablet 20 mg PO BEDTIME 10/03/24 Unknown History levothyroxine 75 mcg tablet 75 mcg PO DAILY 10/03/24 0 10/03/24 Unknown History magnesium citrate 296 ml PO DAILY PRN Constipa tion 10/03/24 10/03/24 Unknown History magnesium hydroxide 400 mg/5 mL 30 ml PO DAILY PRN Con stipation 10/03/24 10/03/24 Unknown History oral suspension (Milk of Magnesia) menthol 4 % topical gel (Biofreeze 1 applic topical Q8 H PRN Muscle 10/03/24 10/03/24 Unknown History (menthol)) Pain naphazoline 0.012 % eye drops 1 drp ophthalmic (eye) Q 12H PRN 10/03/24 10/03/24 Unknown History Dry Eye(S) polyethylene glycol 3350 17 gram 17 g PO DAILY PRN Con stipation 10/03/24 10/03/24 Unknown History oral powder packet (Miralax) sertraline 100 mg tablet 100 mg PO BEDTIME 10/03/24 0 10/03/24 Unknown History sodium phosphates 19 gram-7 118 ml NJ DAILY PRN Consti pation 10/03/24 10/03/24 Unknown History gram/118 mL enema (Fleet Enema) tramadol 50 mg tablet 50 mg PO Q6H 10/03/24 Unknown History Allergies Allergy/AdvReac Type Severity Reaction Status Date / Time meperidine (From Demerol) AdvReac Severe gastric Verified 11/29/23 11:09 upset and headache Opioids - Morphine Analogues AdvReac Severe gastric Verified 11/29/23 11:09 upset and headache PFSH Acute 2 PFSH: Medical History Neuropathic pain Environmental and seasonal allergies Enrolled in chronic care management Gout Osteopenia Hx of migraine headaches Dry eye syndrome, bilateral Altered gait Small vessel disease, 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 Essential hypertension Surgical History Status post left foot surgery after fracture History of arthroscopic knee surgery Left knee History of hand surgery Left 4th metacarpal fracture Status post surgical removal of acromioclavicular joint 2019 History of cervical spinal surgery History of hysterectomy with oophorectomy Family History Mother Stroke Hypothyroidism Hypertension Father Heart disease Sister Cancer Lung and breast Other CAD (coronary artery disease) Diabetes Social History Smoking and tobacco/nicotine status: never used tobacco/nicotine Second hand smoke exposure: No Alcohol intake: never Substance/Drug Use: never Adopted: No Caregiver/support person: No Lives independently: No Household members: significant other Housing: House Marital status: Life Partner service: No Current occupational status: unemployed Sexually active: Yes Do you think of yourself as: Straight/Heterosexual Current gender identity: Female Vitals/I&O/Wt Last Vital Signs Temp 98.8 F 10/03/24 01:30 Pulse 95 10/03/24 05:09 Resp 21 H 10/03/24 05:09 BP 130/74 10/03/24 05:09 Pulse Ox 93 10/03/24 05:09 O2 Del Method Nasal Cannula 10/03/24 06:19 O2 Flow Rate 3 10/03/24 03:00 10/02/24 10/03/24 10/03/24 22:59 06:59 14:59 Intake Total 0 / 0 300 / 300 Balance 0 / 0 300 / 300 Weight last 48 hrs Weight 45.359 kg Weight 45.359 kg Physical Exam 2 Narrative: General The patient is not in distress on 3 L of oxygen at this time pulse oxing 93 to 95%. HEENT?normocephalic/atraumatic Neck?neck is supple Chest lungs are essentially clear except for some adventitious breath sounds on the left basal Abdomen?abdomen is soft nontender nondistended has good bowel sounds Extremities are intact no edema has good pulses neurology has no focalities lab studies were reviewed and noted. Data 10/02/24 22:50 10/02/24 22:50 A&P PDMP PDMP Reviewed: Not Reviewed Attestations 2 Medical Necessity Statement*: Patient is with essentially aspiration pneumonia with shortness of breath and hypoxemia that responded quickly on oxygen and did not appear to be in distress patient need to be optimized prior to be discharging and patient does meet inpatient criteria 79 years old with comorbid condition and would deserve to have at least 2 midnight stay Coding Level of Care Code 71972 Time Spent (min) 60
[2024-10-03] MEDS: ipratropium-albuterol 3 mL Neb INHALATION ×4 (08:31→20:46)
[2024-10-03] MEDS: sodium chloride 0.9% 1,000 ML 75 ML IV (09:14)
[2024-10-03] MEDS: docusate sodium 100 mg Capsule PO ×2 (09:14→17:11)
[2024-10-03] MEDS: levothyroxine 75 mcg Tablet PO (09:14)
[2024-10-03] MEDS: azithromycin 250 mg Tablet 500 MG PO (09:14)
[2024-10-03] MEDS: pantoprazole DR 40 mg Tablet PO (09:14)
[2024-10-03] MEDS: heparin 5,000 unit/mL INJ 1 mL 5000 UNIT SUBCUT ×2 (09:15→20:07)
[2024-10-03] MEDS: fluticasone nasal spray 16gm Btl 1 SPRAY NASAL ×2 (11:06→17:12)
--- NOTE | 2024-10-03 11:06 | P.CONIM_ITS ---
Providers/Reason For Consult 2 Consulting Physician/Specialty*: Wound Care Reason for Consult*: Open wound to sacrum Requesting Physician: Judd Victoria MD Attending Physician: Judd Victoria MD Primary Care Provider: EDE Hawthorne History of Present Illness History of Present Illness Rosemary Nelson is a 79 year old female admitted for pneumonia. 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 Upon admission she was noted to have a stage II pressure ulcer on her bottom. Wound care has been consulted for recommendations for this wound. Review of Systems 2 General: Reports: ROS unobtainable due to mental status Narrative: Reports her heels are sore Medications/Allergies Home Medications ?Medication ?Instructions ?Recorded ?Confirmed ?Last Taken ?Type lumbar support brace #1 ea 10/20/22 10/03/24 Unkn own Rx acetaminophen 500 mg tablet 1,000 mg PO Q8H PRN Pain 1 06/07/22 10/03/24 Unknown History bisacodyl 10 mg rectal suppository 10 mg AR DAILY PRN Constipation 10/03/24 10/03/24 Unknown History calcium carbonate (Tums) 500 mg PO Q4-5H PRN Acid Ref lux 10/03/24 10/03/24 Unknown History docusate sodium 100 mg capsule 100 mg PO BID 10/03/24 10/03/24 Unknown History famotidine 20 mg tablet 20 mg PO BEDTIME 10/03/24 Unknown History levothyroxine 75 mcg tablet 75 mcg PO DAILY 10/03/24 0 10/03/24 Unknown History magnesium citrate 296 ml PO DAILY PRN Constipa tion 10/03/24 10/03/24 Unknown History magnesium hydroxide 400 mg/5 mL 30 ml PO DAILY PRN Con stipation 10/03/24 10/03/24 Unknown History oral suspension (Milk of Magnesia) menthol 4 % topical gel (Biofreeze 1 applic topical Q8 H PRN Muscle 10/03/24 10/03/24 Unknown History (menthol)) Pain naphazoline 0.012 % eye drops 1 drp ophthalmic (eye) Q 12H PRN 10/03/24 10/03/24 Unknown History Dry Eye(S) polyethylene glycol 3350 17 gram 17 g PO DAILY PRN Con stipation 10/03/24 10/03/24 Unknown History oral powder packet (Miralax) sertraline 100 mg tablet 100 mg PO BEDTIME 10/03/24 0 10/03/24 Unknown History sodium phosphates 19 gram-7 118 ml AR DAILY PRN Consti pation 10/03/24 10/03/24 Unknown History gram/118 mL enema (Fleet Enema) tramadol 50 mg tablet 50 mg PO Q6H 10/03/24 Unknown History Allergies Allergy/AdvReac Type Severity Reaction Status Date / Time meperidine (From Demerol) AdvReac Severe gastric Verified 11/29/23 11:09 upset and headache Opioids - Morphine Analogues AdvReac Severe gastric Verified 11/29/23 11:09 upset and headache Current Medications Generic Name Dose Route Start Last Admin Trade Name Freq PRN Reason Stop Dose Admin Azithromycin 500 mg 10/03/24 09:00 10/03/24 09:14 Azithromycin 250 Mg Tablet PO 500 mg DAILY KITA Administration Protocol Docusate Sodium 100 mg 10/03/24 09:00 10/03/24 09:14 Docusate Sodium 100 Mg Capsule PO 100 mg BID KITA Administration Heparin Sodium (Porcine) 5,000 unit 10/03/24 07:45 10/03/24 09:15 Heparin 5,000 Unit/Ml Inj 1 Ml SUBCUT 5,000 unit Q12H KITA Administration Sodium Chloride 1,000 mls @ 75 mls/hr 10/03/24 07:45 10/03/24 09:14 Sodium Chloride 0.9% IV 75 mls/hr .[id number] KITA Administration Levothyroxine Sodium 75 mcg 10/03/24 09:00 10/03/24 09:14 Levothyroxine 75 Mcg Tablet PO 75 mcg DAILY KITA Administration Pantoprazole Sodium 40 mg 10/03/24 09:00 10/03/24 09:[address] 40 Mg Tablet PO 40 mg DAILY KITA Administration PFSH Acute 2 PFSH: Medical History Neuropathic pain Environmental and seasonal allergies Enrolled in chronic care management Gout Osteopenia Hx of migraine headaches Dry eye syndrome, bilateral Altered gait Small vessel disease, 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 Essential hypertension Surgical History Status post left foot surgery after fracture History of arthroscopic knee surgery Left knee History of hand surgery Left 4th metacarpal fracture Status post surgical removal of acromioclavicular joint 2019 History of cervical spinal surgery History of hysterectomy with oophorectomy Family History Mother Stroke Hypothyroidism Hypertension Father Heart disease Sister Cancer Lung and breast Other CAD (coronary artery disease) Diabetes Social History Smoking and tobacco/nicotine status: never used tobacco/nicotine Second hand smoke exposure: No Alcohol intake: never Substance/Drug Use: never Adopted: No Caregiver/support person: No Lives independently: No Household members: significant other Housing: House Marital status: Life Partner service: No Current occupational status: unemployed Sexually active: Yes Do you think of yourself as: Straight/Heterosexual Current gender identity: Female Vitals/I&O/Wt Last Vital Signs Temp 98.6 F 10/03/24 08:50 Pulse 96 10/03/24 08:50 Resp 17 10/03/24 08:50 BP 133/75 10/03/24 08:50 Pulse Ox 92 10/03/24 08:50 O2 Del Method Room Air 10/03/24 08:33 O2 Flow Rate 3 10/03/24 03:00 10/02/24 10/03/24 10/03/24 22:59 06:59 14:59 Intake Total 0 / 0 300 / 300 Balance 0 / 0 300 / 300 Weight last 48 hrs Weight 45.359 kg Weight 45.359 kg Physical Exam 2 Const: COMMON NORMALS: no acute distress and alert; negative for patient oriented x3 EXAM LIMITATIONS: altered mental status and physical limitations GENERAL APPEARANCE: cooperative and frail appearing N UTRITIONAL APPEARANCE: thin ORIENTATION/CONSCIOUSNESS: Yes awake and Yes oriented to person HENMT: HEAD & SCALP: normal to inspection Eye: GENERAL EYE: appearance normal, both eyes and all related structures Neck/C-Spine: GENERAL: Yes trachea midline Chest: CHEST: Yes Symmetrical chest wall rise Resp: COMMON NORMALS: normal respiratory effort EFFORT & INSPECTION: Yes able to speak in complete sentences Cardio: COMMON NORMALS: regular rate RATE: regular rate Back/Pelvis: SACRUM: erythema (Mild localized blanchable erythema noted to right sacral area), no swelling and No sacral edema OTHER: Small ulceration to right gluteal cleft; see wound assessment Extremity: NARRATIVE EXTREMITY EXAM: Heels with blanchable erythema; no open wound Neuro: COMMON NORMALS: negative for patient oriented x3 S ENSORIUM/ORIENTATION: Yes alert and Yes oriented to person Psych: ATTITUDE: Yes calm Skin: WOUNDS: Yes wounds noted (See wound assessment) Data 10/03/24 10:49 10/02/24 22:50 A&P Assessment and plan (1) Stage II pressure ulcer of right buttock: Very small and superficial wound noted to the right gluteal fold. Does not appear acutely infected Will recommend Hydrofera Blue ready to be applied to the wound daily secured with a 3 x 3 Optifoam. She would benefit from a nutritional consult as optimized nutrition will expedite wound healing. She should regularly change positions to relieve pressure on the affected area, at minimum every 2 hours. Use pillows, foam cushions, mattress pads, or other aids to reduce pressure on vulnerable areas. Remove pressure from medical devices like oxygen tubing. Blanchable erythema to sacrum. This should be monitored closely. I recommend a barrier ointment be applied with each brief change to prevent any skin breakdown in this area. Plan Blanchable erythema to bilateral heels. Patient reports they are sore. Her heel should be floated at all times while in bed. She would benefit from padded heel protectors to prevent any ulcerations. Will recommend Skin-Prep daily to bilateral heels. Her heels should be cleansed thoroughly between applications. PDMP PDMP Reviewed: Not Reviewed Coding Level of Care Code Acute Code for [facility] Fwd Diagnoses Stage II pressure ulcer of right buttock L89.312 Wound Assessment Wound Assessment Wound Number 1 Gluteal Fold: Descriptor: Right Primary Etiology: Pressure Ulcer Classification: Stage 2 Length (cm): 0.5 cm Width (cm): 0.1 cm Depth (cm): 0.1 cm Epithelialization: Small (1-33%) Tunneling: No Undermining: No Limited to Skin Breakdown: No Exudate Amount: Small Drainage Type: Serosanguineous Foul Odor After Cleansing: No Slough/Fibrin?: No Granulation Amount: None Necrotic Amount: None Non Wound Condition 1 Heel: Wound Orders Wound Number 1: Right gluteal fold Dressing change frequency: Daily Wound Cleansing: Saline Skin Barriers/Rika-Wound Care: Barrier ointment (Sacral area) Primary Wound Care Dressing: Hydrofera Blue ready Secondary Wound Care Dressin x 3 Optifoam Off-Loading: Turn and reposition every 2 hours Non Wound Condition 1: Bilateral heels Dressing change frequency: Daily Skin Barriers/Rika-Wound Care: Skin Prep Off-Loading: Padded heel protectors and Other (Float heels at all times while in bed)
[2024-10-03 11:16] LABS: Basophils % 0.3 %; Eosinophils % 0.3 %; Hematocrit 32.6 % (36-47); Lymphocytes # 0.7 10^3/uL (0.8-4.8); Lymphocytes % 4.9 %; Mean Corpuscular HGB Conc 31.9 g/dL (30-55); Mean Corpuscular Hemoglobin 30.8 pg (27-33); Mean Corpuscular Volume 96.4 fl (85-98); Monocytes # 0.4 10^3/uL (0.2-0.9); Monocytes % 2.8 %; Neutrophils # 13.13 10^3/uL (1.8-7.7); Neutrophils % 91.2 %; Nucleated Red Blood Cells % 0 %; Platelet Count 216 10^3/cmm (157-399); Red Blood Count 3.38 10^6/uL (3.85-5.65); Red Cell Distribution Width 13.7 % (12.1-15.1); White Blood Count 14.38 10^3/uL (3.29-11.43)
[2024-10-03] MEDS: budesonide 0.5 mg/2 mL Neb 0.25 MG INHALATION ×2 (11:30→20:45)
[2024-10-03 11:41] LABS: Estmated Average Glucose 105; Hemoglobin A1C 5.3 % (4.0-6.0)
[2024-10-03 11:45] LABS: Procalcitonin 1.33 ng/mL (0-0.5); Thyroid Stimulating Hormone 1.87 uIU/mL (0.27-4.20); Vitamin B12 1364 pg/mL (232-1245)
[2024-10-03 11:57] LABS: Alanine Aminotransferase 13 U/L (0-33); Albumin Level 3.2 g/dL (3.5-5.2); Alkaline Phosphatase 85 U/L (35-105); Anion Gap 18.6 (5-19); Aspartate Amino Transferase 20 U/L (0-32); Blood Urea Nitrogen 24 mg/dL (8-23); Calcium 8.9 mg/dL (8.5-10.5); Carbon Dioxide 20 mmol/L (22-29); Chloride 102 mmol/L (98-107); Chol HDL Ratio 2.49 mg/dL (0.0-4.40); Cholesterol 147 mg/dL (0-200); Creatinine Clr Calc Pharmacy 35.5038; Globulin 3.2 g/dL (1.3-4.6); Glucose 123 mg/dL (65-115); HDL Cholesterol 59 mg/dL (60-100); Iron 8 ug/dL (37-145); LDL Cholesterol Calculated 75 mg/dL (50-129); LDL HDL Ratio 1.27 RATIO (0.00-3.22); Osmolality Calculated 289 mOsm/kg (285-295); Percent Saturation 4.4 % (20-50); Phosphorus 2.7 mg/dL (2.5-4.5); Potassium 3.6 mmol/L (3.5-5.1); Sodium 137 mmol/L (136-145); Total Bilirubin 0.4 mg/dL (0.15-1.2); Total Iron Binding Capacity 181 mcg/dl; Total Protein 6.4 g/dL (6.6-8.7); Triglycerides 67 mg/dL (0-150); Unsaturated Iron Binding 173 ug/dL (112-347)
--- NOTE | 2024-10-03 12:17 | CTR_ITS ---
PROCEDURE INFORMATION: Exam: CT Chest Without Contrast; Diagnostic Exam date and time: 10/03/2024 2:00 PM Age: 79 years old Clinical indication: Abdominal tenderness; Shortness of breath; Additional info: Pna, leukocytosis TECHNIQUE: Imaging protocol: Diagnostic computed tomography of the chest without contrast. Radiation optimization: All CT scans at this facility use at least one of these dose optimization techniques: automated exposure control; mA and/or kV adjustment per patient size (includes targeted exams where dose is matched to clinical indication); or iterative reconstruction. COMPARISON: CR (CHEST, ) 10/02/2024 10:13 PM RADIATION DOSE METRICS: Total DLP (mGy-cm): 380.84 FINDINGS: Trachea: Trachea is patent. Lungs: There is bronchiectasis in the right lower lobe. Infiltrates are seen in the right upper lobe, right middle lobe and right lower lobe. Pleural spaces: Unremarkable. No pneumothorax. No pleural effusion. Heart: Cardiomegaly is seen. Lymph nodes: No enlarged mediastinal lymph node. Vasculature: Mild calcified atherosclerotic changes are seen in the thoracic aorta. Bones/joints: Unremarkable. No acute fracture. Soft tissues: Unremarkable. PROCEDURE INFORMATION: Exam: CT Abdomen And Pelvis Without Contrast Exam date and time: 10/03/2024 2:00 PM Age: 79 years old Clinical indication: Abdominal tenderness; Shortness of breath; Additional info: Pna, leukocytosis TECHNIQUE: Imaging protocol: Computed tomography of the abdomen and pelvis without contrast. Radiation optimization: All CT scans at this facility use at least one of these dose optimization techniques: automated exposure control; mA and/or kV adjustment per patient size (includes targeted exams where dose is matched to clinical indication); or iterative reconstruction. COMPARISON: CT abdomen pelvis con [id number] 04/24/2023 10:19 AM RADIATION DOSE METRICS: Total DLP (mGy-cm): 380.84 FINDINGS: Liver: Normal. No mass. Gallbladder and biliary ducts: Normal. No calcified stones. No ductal dilation. Pancreas: Normal. No ductal dilation. Spleen: Normal. No splenomegaly. Adrenal glands: Normal. No mass. Kidneys and ureters: Normal. No hydronephrosis. Stomach and bowel: Descending and sigmoid colon diverticulosis. No small bowel loop dilatation. Appendix: Appendix is not visualized. Intraperitoneal space: Unremarkable. No free air. No significant fluid collection. Vasculature: Mild calcified atherosclerotic changes are seen throughout the abdominal aorta. Lymph nodes: Unremarkable. No enlarged lymph nodes. Urinary bladder: Unremarkable as visualized. Reproductive: Post hysterectomy changes are seen. Bones/joints: Prior kyphoplasty changes in the L3 vertebral body. Soft tissues: Unremarkable. CT/[place] [id number] IMPRESSION: 1. Infiltrates are seen in the right upper lobe, right middle lobe and right lower lobe. Finding could represent multifocal pneumonia. Imaging follow-up until resolution is advised. 2. Cardiomegaly. 3. Mild calcified atherosclerotic changes are seen in the thoracic aorta. IMPRESSION: 1. Descending and sigmoid colon diverticulosis. 2. Mild calcified atherosclerotic changes are seen throughout the abdominal aorta.
--- NOTE | 2024-10-03 13:00 | P.PN_ITS ---
Subjective 2 Subjective: Admitted overnight for possible hypoxia from the care home. Today morning when seen patient is on room air. Seems to be awake and alert to self and date of . Not sure where she is at. Seems to be at her baseline mentation. Hemodynamically stable. Vitals/I&O/Wt Last Vital Signs Temp 98.1 F 10/03/24 12:48 Pulse 84 10/03/24 12:48 Resp 17 10/03/24 12:48 BP 112/65 10/03/24 12:48 Pulse Ox 92 10/03/24 12:48 O2 Del Method Room Air 10/03/24 11:33 O2 Flow Rate 3 10/03/24 03:00 10/02/24 10/03/24 10/03/24 22:59 06:59 14:59 Intake Total 0 / 0 300 / 300 360 / 360 Balance 0 / 0 300 / 300 360 / 360 Weight last 48 hrs Weight 40.778 kg Weight 45.359 kg Weight 45.359 kg Physical Exam 2 Narrative: General: No acute distress, alert and oriented to self, date of , HEENT: PERRLA, pupils bilaterally equal and reactive Chest: Bilateral bronchial breath sounds with occasional rhonchi diffusely all over lung vázquez CVS: S1-S2 regular, no murmurs, no tachycardia, no gallops, no rubs Abdomen: Soft, nontender, no organomegaly, bowel sounds present Neuro: No focal deficits, no facial deformity, AO x3, power 5/5 in all limbs Data 10/03/24 10:49 10/03/24 10:49 A&P Assessment and plan (1) Hypoxia: Seems to have resolved now. Appreciate chest x-ray. Could have been in setting of aspiration. Oxygen supplementation keeping saturation over 88%. Pulmicort twice daily, DuoNeb every 6 hour. Speech therapy advance diet accordingly. Check sputum culture. Lower likelihood of pneumonia though patient does have leukocytosis. Check procalcitonin, sputum culture, MRSA swab. Continue with IV Zosyn for now. (2) Aspiration of food: (3) Leukocytosis: Could be in setting of stage II decubitus ulcer. Though does not seem infected. UA normal. Chest x-ray does not seem to have pneumonia though patient did have hypoxia on admission. Will check CT chest abdomen pelvis without contrast. Next antibiotic as above. (4) Mild cognitive impairment with memory loss: (5) Stage II pressure ulcer of right buttock: Will consult wound care nurse for further evaluation and recommendations. Plan CODE STATUS: As per the paperwork from care home DNR/DNI. Advance diet as per speech evaluation Protonix for PUD prophylaxis Heparin for DVT prophylaxis. PDMP PDMP Reviewed: Not Reviewed Attestations 2 Medical Necessity Statement*: Requires further hospitalization for evaluation and management of hypoxia with high reviewed likelihood of aspiration, leukocytosis, stage II decubitus ulcer Other Coding Information Prolonged care (total time indicated above or notated here) Evaluating patient, changing CODE STATUS Advancing diet as per speech evaluation, further evaluation of leukocytosis, management of decub ulcer Diagnoses Hypoxia R09.02 Aspiration of food T17.928A; [id number] Leukocytosis D72.829 Mild cognitive impairment with memory loss G31.84 Stage II pressure ulcer of right buttock L89.312
[2024-10-03 13:45] LABS: MRSA PCR OZH (swab) NOT DETECTED (Not Detecte)
--- NOTE | 2024-10-03 14:38 | PC.SOCIAL ---
IMM Updated Updated pt on IMM. No questions voiced. Provided pt a copy. Initialed, dated, & timed a copy & placed in chart.
[2024-10-03] MEDS: sertraline 100 mg Tablet PO (20:07)
[2024-10-04] VITALS (11 sets, daily range): BP systolic 96–166; BP diastolic 59–89; PULSE 69–96; RESP 13–19; TEMP 36.5–36.7; O2SAT 91–98; BMI 15.3
[2024-10-04] MEDS: piperacillin-tazobactam 3.375 GM in sodium chloride 0.9% (plus) 50 ML IV ×2 (04:28→16:15)
[2024-10-04] MEDS: sodium chloride 0.9% 1,000 ML 75 ML IV (04:28)
[2024-10-04 04:58] LABS: Basophils % 0.2 %; Eosinophils # 0.1 10^3/uL (0.0-0.8); Eosinophils % 0.4 %; Hematocrit 30.2 % (36-47); Lymphocytes # 1.7 10^3/uL (0.8-4.8); Lymphocytes % 12.1 %; Mean Corpuscular HGB Conc 32.5 g/dL (30-55); Mean Corpuscular Hemoglobin 30.7 pg (27-33); Mean Corpuscular Volume 94.7 fl (85-98); Mean Platelet Volume 9.8 fL (7.4-10.4); Monocytes # 0.6 10^3/uL (0.2-0.9); Monocytes % 4.2 %; Neutrophils # 11.29 10^3/uL (1.8-7.7); Neutrophils % 82.4 %; Nucleated Red Blood Cells % 0 %; Platelet Count 214 10^3/cmm (157-399); Red Blood Count 3.19 10^6/uL (3.85-5.65); Red Cell Distribution Width 13.6 % (12.1-15.1)
[2024-10-04 05:25] LABS: Magnesium 1.9 mg/dL (1.7-2.3)
[2024-10-04 05:27] LABS: Alanine Aminotransferase 12 U/L (0-33); Alkaline Phosphatase 78 U/L (35-105); Anion Gap 16.6 (5-19); Aspartate Amino Transferase 18 U/L (0-32); Blood Urea Nitrogen 16 mg/dL (8-23); Calcium 8.5 mg/dL (8.5-10.5); Carbon Dioxide 21 mmol/L (22-29); Chloride 105 mmol/L (98-107); Creatinine Clr Calc Pharmacy 35.5038; Globulin 3.2 g/dL (1.3-4.6); Glucose 70 mg/dL (65-115); Osmolality Calculated 288 mOsm/kg (285-295); Potassium 3.6 mmol/L (3.5-5.1); Sodium 139 mmol/L (136-145); Total Bilirubin 0.4 mg/dL (0.15-1.2); Total Protein 6.2 g/dL (6.6-8.7)
--- NOTE | 2024-10-04 08:24 | P.DS_ITS ---
Discharge Providers Date of Admission: 10/03/24 03:30 Date of Discharge: October 04, 2024 Attending Provider at Admission: Katlyn Richards MD Attending Provider at Discharge: Judd Victoria MD Primary Care Provider: EDE Hawthorne Diagnoses at Discharge Discharge Diagnosis (1) Hypoxia: Status: Acute (2) Aspiration of food: Status: Acute (3) Leukocytosis: Status: Acute (4) Mild cognitive impairment with memory loss: Status: Acute (5) Stage II pressure ulcer of right buttock: Status: Acute Reason for Visit Reason for Visit: SOB with hypoxemia Brief History: History as per HPI: Rosemary Nelson is a 79 year old female who resides at the alf was noted to be short of breath. Because of shortness of breath patient was brought to the emergency room. At the emergency room patient was found to be on room air hypoxemia. Patient initially was placed on 3 L of oxygen with a saturation of 92%. Patient is not on any oxygen at home. Clinically patient examination as though she has some adventitious breath sounds on the left lower aspect of the lung with abnormal lung sounds. Chest x-ray were unremarkable. Patient does not appear to be in distress. Empiric antibiotics was initiated in this setting because of leukocytosis at 13,000 in an 79-year-old female. Upon my evaluation of the patient patient was in the room without her oxygen she had pulled it out and on the screen she was still registering 93% on a practical room air. I placed the 2 L of oxygen on her and she was doing 93 to 95%. Patient has been diagnosed with pneumonia on a clinical ground. With a higher index of suspicion of aspiration for this reason Zosyn was chosen along with azithromycin for atypicals. Hospital Course Hospital Course Patient was admitted to the hospital further evaluation and management with concerns for hypoxia on admission which resolved with nebulization treatment with concerns for aspiration pneumonia mostly because of leukocytosis. CT abdomen pelvis chest was done which showed right-sided pneumonia. She started on broad-spectrum IV antibiotics. She was seen by speech therapy and diet was adjusted accordingly. She did not have any episodes of aspiration during hospitalization and remained on room air. She has been discharged back to alf on oral antibiotics for 5 more days on adjusted diet. During hospitalization she was found to have elevated blood pressures for which amlodipine 5 g oral daily has been added to her medication list. Physical Exam Narrative: General: No acute distress, alert and oriented to self, date of , HEENT: PERRLA, pupils bilaterally equal and reactive Chest: Bilateral bronchial breath sounds with occasional rhonchi diffusely all over lung vázquez CVS: S1-S2 regular, no murmurs, no tachycardia, no gallops, no rubs Abdomen: Soft, nontender, no organomegaly, bowel sounds present Neuro: No focal deficits, no facial deformity, AO x3, power 5/5 in all limbs Discharge Data Studies Completed and Pending Completed Studies During Hospitalization Category Date Time Status CT chest abdomen pelvis [[place] [id number] Cat Scan 10/03/24 12:17 Completed ] Routine XR chest 1V portable [id number] Stat Exams 10/02/24 22:06 Completed Pending at discharge Category Date Time Status MAG [Magnesium] AM LABS Lab 10/05/24 04:00 Ordered MAG [Magnesium] AM LABS Lab 10/06/24 04:00 Ordered Sputum Culture and Gram Stain Stat Lab 10/03/24 12:17 Uncollected Radiology Impressions Chest X-Ray 10/02/24 22:06 IMPRESSION: No acute cardiopulmonary process. Chest/Abdomen/Pelvis CT 10/03/24 12:17 IMPRESSION: 1. Infiltrates are seen in the right upper lobe, right middle lobe and right lower lobe. Finding could represent multifocal pneumonia. Imaging follow-up until resolution is advised. 2. Cardiomegaly. 3. Mild calcified atherosclerotic changes are seen in the thoracic aorta. IMPRESSION: 1. Descending and sigmoid colon diverticulosis. 2. Mild calcified atherosclerotic changes are seen throughout the abdominal aorta. Laboratory Results WBC 13.70 10^3/uL (3.29-11.43) H 10/04/24 04:45 RBC 3.19 10^6/uL (3.85-5.65) L 10/04/24 04:45 Hgb 9.80 g/dL (11.27-16.99) L 10/04/24 04:45 Hct 30.2 % (36-47) L 10/04/24 04:45 MCV 94.7 fl (85-98) 10/04/24 04:45 MCH 30.7 pg (27-33) 10/04/24 04:45 MCHC 32.5 g/dL (30-55) 10/04/24 04:45 RDW 13.6 % (12.1-15.1) 10/04/24 04:45 Plt Count 214 10^3/cmm (157-399) 10/04/24 04:45 MPV 9.8 fL (7.4-10.4) 10/04/24 04:45 Neut % (Auto) 82.4 % 10/04/24 04:45 Lymph % (Auto) 12.1 % 10/04/24 04:45 [place] % (Auto) 4.2 % 10/04/24 04:45 Eos % (Auto) 0.4 % 10/04/24 04:45 Baso % (Auto) 0.2 % 10/04/24 04:45 Neut # (Auto) 11.29 10^3/uL (1.8-7.7) H 10/04/24 04:45 Lymph # (Auto) 1.7 10^3/uL (0.8-4.8) 10/04/24 04:45 [place] # (Auto) 0.6 10^3/uL (0.2-0.9) 10/04/24 04:45 Eos # (Auto) 0.1 10^3/uL (0.0-0.8) 10/04/24 04:45 Baso # (Auto) 0.0 10^3/uL (0.0-0.1) 10/04/24 04:45 Nucleated RBC % (auto) 0 % 10/04/24 04:45 Nucleated RBCs # 0.0 /100WBC 10/04/24 04:45 Sodium 139 mmol/L (136-145) 10/04/24 04:45 Potassium 3.6 mmol/L (3.5-5.1) 10/04/24 04:45 Chloride 105 mmol/L (98-107) 10/04/24 04:45 Carbon Dioxide 21 mmol/L (22-29) L 10/04/24 04:45 Anion Gap 16.6 (5-19) 10/04/24 04:45 BUN 16 mg/dL (8-23) 10/04/24 04:45 Creatinine 0.7 mg/dL (0.5-0.9) 10/04/24 04:45 GFR Calculation Not Reportable 10/04/24 04:45 Glucose 70 mg/dL (65-115) 10/04/24 04:45 Estimat Average Glucose 105 10/03/24 10:49 Hemoglobin A1c 5.3 % (4.0-6.0) 10/03/24 10:49 Calculated Osmolality 288 mOsm/kg (285-295) 10/04/24 04:45 Lactic Acid 1.2 mmol/L (0.5-2.2) 10/02/24 22:50 Calcium 8.5 mg/dL (8.5-10.5) 10/04/24 04:45 Phosphorus 2.7 mg/dL (2.5-4.5) 10/03/24 10:49 Magnesium 1.9 mg/dL (1.7-2.3) 10/04/24 04:45 Iron 8 ug/dL (37-145) L 10/03/24 10:49 TIBC 181 mcg/dl 10/03/24 10:49 % Saturation 4.4 % (20-50) L 10/03/24 10:49 Unsat Iron Binding 173 ug/dL (112-347) 10/03/24 10:49 Total Bilirubin 0.4 mg/dL (0.15-1.2) 10/04/24 04:45 AST 18 U/L (0-32) 10/04/24 04:45 ALT 12 U/L (0-33) 10/04/24 04:45 Alkaline Phosphatase 78 U/L (35-105) 10/04/24 04:45 Total Protein 6.2 g/dL (6.6-8.7) L 10/04/24 04:45 Albumin 3.0 g/dL (3.5-5.2) L 10/04/24 04:45 Globulin 3.2 g/dL (1.3-4.6) 10/04/24 04:45 Triglycerides 67 mg/dL (0-150) 10/03/24 10:49 Cholesterol 147 mg/dL (0-200) 10/03/24 10:49 LDL Cholesterol, Calc 75 mg/dL (50-129) 10/03/24 10:49 HDL Cholesterol 59 mg/dL (60-100) L 10/03/24 10:49 LDL/HDL Ratio 1.27 RATIO (0.00-3.22) 10/03/24 10:49 Cholesterol/HDL Ratio 2.49 mg/dL (0.0-4.40) 10/03/24 10:49 Vitamin B12 1364 pg/mL (232-1245) H 10/03/24 10:49 Folate 11.0 ng/mL (4.8-37.3) 10/04/24 04:45 Procalcitonin 1.33 ng/mL (0-0.5) H 10/03/24 10:49 TSH 1.87 uIU/mL (0.27-4.20) 10/03/24 10:49 Urine Color Yellow (Yellow) 10/03/24 00:25 Urine Appearance Clear (CLEAR) 10/03/24 00: Urine pH 6.0 (5-7) 10/03/24 00:25 Ur Specific [place] 1.021 (1.005-1.030) 10/03/24 00:25 Urine Protein Trace (Negative) A 10/03/24 00:25 Urine Glucose (UA) Negative (Normal) 10/03/24 00:25 Urine Ketones Trace (Negative) 10/03/24 00:25 Urine Blood Negative (Negative) 10/03/24 00:25 Urine Nitrate Negative (Negative) 10/03/24 00:25 Urine Bilirubin Negative (Negative) 10/03/24 00: Urine Urobilinogen 1.0 mg/dL (Negative) 10/03/24 00:25 Ur Leukocyte Esterase Trace (Negative) A 10/03/24 00:25 Urine RBC 0-2 /hpf (0-2) 10/03/24 00:25 Urine WBC 0-5 /hpf (0-5) 10/03/24 00:25 Ur Squamous Epith Cells 0-5 /hpf (0-5) 10/03/24 00:25 Amorphous Sediment Not Reportable 10/03/24 00:25 Urine Bacteria None seen /hpf (NONE) 10/03/24 00:25 Hyaline Casts 0.81 /lpf 10/03/24 00:25 Nasal MRSA (PCR) Not detected (Not Detecte) 10/03/24 12:25 Influenza A (PCR) Negative (Negative) 10/02/24 22:29 Influenza Type B (PCR) Negative (Negative) 10/02/24 22:29 RSV (PCR) Negative (Negative) 10/02/24 22:29 SARS-CoV-2 (PCR) Negative (Negative) 10/02/24 22:29 Vitals Last Vital Signs Temp 97.8 F 10/04/24 05:40 Pulse 86 10/04/24 05:40 Resp 16 10/04/24 05:40 BP 164/87 10/04/24 05:40 Pulse Ox 94 10/03/24 21:38 O2 Del Method Room Air 10/04/24 05:40 O2 Flow Rate 3 10/03/24 03:00 Discharge Plan Discharge Patient Disposition: Home Condition: Stable Prescriptions: New levofloxacin 750 mg tablet 750 mg PO Q24H 5 Days Qty: 5 0RF amoxicillin-pot clavulanate 875-125 mg tablet 1 tab PO BID 5 Days Qty: 10 0RF amlodipine 5 mg tablet 5 mg PO DAILY Qty: 30 0RF Continued (DME) lumbar support brace See Rx Instructions .Route .MEDSUPPLY Qty: 1 0RF Rx Instructions: As directed acetaminophen 500 mg Tablet 1,000 mg PO Q8H PRN (Reason: Pain) polyethylene glycol 3350 [Miralax] 17 gram Powder In Packet 17 g PO DAILY PRN (Reason: Constipation) sertraline 100 mg Tablet 100 mg PO BEDTIME naphazoline 0.012 % Drops 1 drp OPHTHALMIC (EYE) Q12H PRN (Reason: Dry Eye(S)) tramadol 50 mg Tablet 50 mg PO Q6H levothyroxine 75 mcg Tablet 75 mcg PO DAILY famotidine 20 mg Tablet 20 mg PO BEDTIME magnesium hydroxide [Milk of Magnesia] 400 mg/5 mL Suspension 30 ml PO DAILY PRN (Reason: Constipation) bisacodyl 10 mg Suppository 10 mg MT DAILY PRN (Reason: Constipation) calcium carbonate [Tums] 200 mg calcium (500 mg) Tablet,Chewable 500 mg PO Q4-5H PRN (Reason: Acid Reflux) Fleet Enema 19-7 gram/118 mL Enema 118 ml MT DAILY PRN (Reason: Constipation) docusate sodium 100 mg Capsule 100 mg PO BID magnesium citrate Solution 296 ml PO DAILY PRN (Reason: Constipation) Biofreeze (menthol) 4 % Gel 1 applic TOPICAL Q8H PRN (Reason: Muscle Pain) Rx Instructions: apply to lower back Discharge Orders: Discharge Order (Routine); Ordered 10/04/24 Ordered By: Judd Victoria Referrals: Trenton Mckeon FNP [Primary Care Provider, [facility]] Discharge Diet: As Directed Discharge Activity: Resume usual activity and Increase activity as tolerated Patient Instructions: Amoxicillin/Clavulanate Potassium (By mouth), Amlodipine (By mouth), Levofloxacin (By mouth), Aspiration Pneumonia (GEN), Opioid Safety, Pneumonia Stoplight Activity Restrictions/Additional Instructions: Dysphagia level 6 diet. Take Augmentin and Levaquin to the antibiotics for the next 5 days. Discharge Attestations Time Spent in Discharge Care*: greater than 30 min Specific Discharge Activities: educating patient, discussing with pcp/other providers, discussing with employment case manager/social workers/dc planners, documenting/other paperwork and evaluating patient/reviewing data Status at Discharge: Cognitive status at discharge: moderately impaired cognition , Behavioral status at discharge: cooperative , Functional status at discharge: uses cane/walker , Overall status at discharge: patient is back to baseline Quality Metrics Clinical Quality Measures [ No reported AMI, CVA or VTE this stay] Coding Level of Care Code 21580 Total time (in minutes) for Discharge: 65 Diagnoses Hypoxia R09.02 Aspiration of food T17.928A; [id number].F3XA Leukocytosis D72.829 Mild cognitive impairment with memory loss G31.84 Stage II pressure ulcer of right buttock L89.312
[2024-10-04] MEDS: budesonide 0.5 mg/2 mL Neb 0.25 MG INHALATION ×2 (08:48→20:17)
[2024-10-04] MEDS: ipratropium-albuterol 3 mL Neb INHALATION ×4 (08:48→20:17)
[2024-10-04] MEDS: levothyroxine 75 mcg Tablet PO (10:28)
[2024-10-04] MEDS: azithromycin 250 mg Tablet 500 MG PO (10:31)
[2024-10-04] MEDS: pantoprazole DR 40 mg Tablet PO (10:31)
[2024-10-04] MEDS: fluticasone nasal spray 16gm Btl 1 SPRAY NASAL (10:32)
[2024-10-04] MEDS: heparin 5,000 unit/mL INJ 1 mL 5000 UNIT SUBCUT ×2 (10:32→20:05)
[2024-10-04] MEDS: docusate sodium 100 mg Capsule PO ×2 (10:36→18:45)
--- NOTE | 2024-10-04 11:40 | PC.CHAP ---
Pastoral Care Encounter/Spiritual Assessment Type of Contact [] Declined wellness health coach visit [] Patient/Family/Request visit [] Outpatient visit [] Follow-up visit [] Physician referral [] Code/Alert [x] Routine visit [] Staff referral [] Actively dying [x] Patient sleeping [] Family support [] [] Out of room [] Palliative care [] [] Receiving care in room [] Pre-surgical visit [] Trauma [] Long length of stay [] ICU visit [] Other: Relational/Emotional Strength [] Patient feels connected with others/family/visitors/staff [] Distress [] Loneliness/isolation [] Abandonment Spirituality of Patient [] Person of Kassy [] Attends Buddhism of their Kassy [] Believes in Prayer [] Reads Bible or Adventist materials [] There are Spiritual issues to be addressed Machine Fixer Interventions [] Prayer [] Active listening [] Non-anxious presence [] Spiritual/emotional support [] Crisis/trauma care [] Spiritual counseling [] Bereavement support [] Provided bereavement packet [] Provided Bible/devotional materials [] Provided toy/stuffed animal, coloring book to patient or family member [] Provided Communion [] Anointing/[place] [] Salvation [] Completed spiritual assessment [] Other: Impact on Illness or Injury [] Angry [] Fearful [] Anxious [] Often cries [] Exhaustion [] Unable to work [] Unable to attend judaism [] Unable to walk/stand [] Unable to read [] Unable to drive [] Unable to eat/drink [] Unable to sleep [] Unable to be with family [] Patient intubated [] Other: Summary Time spent with patient
--- NOTE | 2024-10-04 13:52 | PC.NURSE ---
Walk in late morning with AIRPORT OPERATIONS DUTY MANAGER feeding patient. Patient was choking on scrabbled eggs. Helped the patient get eggs from mouth and notified Dr. Victoria. Dr. Victoria gave orders to withhold patients discharge, put patient NPO and order speech evaluation.
--- NOTE | 2024-10-04 19:52 | PM.MISC ---
Miscellaneous Note Purpose of Documentation: Dysphagia - choking. Note: I was called by the night nurse that the speech therapist, Ms. Roderick Torres, was at bedside and there was concern that the patient was choking on food. On discussion with Roderick, the patient was placed on soft and bite sized foodw w/ small sips of mildly thickened liquids. According to the patient's day nurse, night nurse and the speech therapist, all at bedside, the patient was choking on everything. According to the both nurses, the patient choked on eggs and thick liquids earlier in the day. The speech therapist stated that she trialed the patient on peaches, apple sauce, thickened water as well as honey thickened water, and the patient not only choked on them, but had excess mucous production, such that the speech therapist had to manually finger sweep the food from the patient's oral cavity. According to my discussion with the speech therapist, it is unclear whether the excess mucous was causing the choking on the foods vs the foods being the primary reason for the choking. Some of the sputum was sent for gram stain with culture. I made the patient NPO and ordered q4h BG evaulations with hypoglycemia protocol. I told the Speech therapist that perhaps, the patient may need another evaluation when she is not producing excess mucous to ensure that excess mucous was not influencing the patient's ability to swallow.
[2024-10-04 20:21] LABS: Glucose Point of Care 69 mg/dL (70-110)
--- NOTE | 2024-10-04 20:24 | PM.MISC ---
Miscellaneous Note Note: Night nurse just reported that patient's BG is 69. Will give 125cc of d10 over 10mins. Will also start continuous d5 fluids.
[2024-10-04] MEDS: dextrose 10% 125 ML 750 ML IV (20:26)
[2024-10-04] MEDS: dextrose 5%-sod chloride 0.9% 1,000 ML 50 ML IV (21:02)
[2024-10-04 21:04] LABS: Glucose Point of Care 118 mg/dL (70-110)
--- NOTE | 2024-10-04 22:09 | P.MISC_ITS ---
Miscellaneous Note Note: Per nurse, the patient's snf documentation says DNR/DNI, but the patient is full code on the computer. I called the patient's family member, Ms. Jojo Nelson at [phone]. Ms. Jojo Nelson told me that she is the patient's granddaughter, but the patient adopted her at age 1, so she was raised as the patient's daughter. Ms. Uribe also confirmed that Mr. Keene, is the patient's partner of over a decade and that the patient and Mr. Keene moved down to [place] from their home state of [place] many years ago. He is on- ground and goes to see the patient several times a week at the snf. According to Ms. Uribe, she does not believe that the patient has any power of cement finisher helper documents, but she believes that the patient would want to be DNR/DNI. I called the patient's partner, Mr. Keene at [phone], who confirmed that the patient did not have any documents naming power of cement finisher helper. At this time, will change the code status from full code to DNR/DNI.
--- NOTE | 2024-10-04 22:09 | PM.MISC ---
Miscellaneous Note Note: Per nurse, the patient's correction documentation says DNR/DNI, but the patient is full code on the computer. I called the patient's family member, Ms. Jojo Nelson at [phone]. Ms. Jojo Nelson told me that she is the patient's granddaughter, but the patient adopted her at age 1, so she was raised as the patient's daughter. Ms. Uribe also confirmed that Mr. Keene, is the patient's partner of over a decade and that the patient and Mr. Keene moved down to [place] from their home state of [place] many years ago. He is on-ground and goes to see the patient several times a week at the correction. According to Ms. Uribe, she does not believe that the patient has any power of employee benefits attorney documents, but she believes that the patient would want to be DNR/DNI. I called the patient's partner, Mr. Keene at [phone], who confirmed that the patient did not have any documents naming power of employee benefits attorney. At this time, will change the code status from full code to DNR/DNI.
[2024-10-05] VITALS (13 sets, daily range): BP systolic 151–184; BP diastolic 74–93; PULSE 69–86; RESP 16–19; TEMP 36.4–37.2; O2SAT 94–98
[2024-10-05 00:21] LABS: Glucose Point of Care 80 mg/dL (70-110)
[2024-10-05] MEDS: piperacillin-tazobactam 3.375 GM in sodium chloride 0.9% (plus) 50 ML IV ×3 (00:23→16:43)
[2024-10-05 03:57] LABS: Glucose Point of Care 86 mg/dL (70-110)
[2024-10-05 04:03] LABS: Basophils % 0.3 %; Eosinophils % 0.4 %; Hematocrit 32.3 % (36-47); Lymphocytes # 1.4 10^3/uL (0.8-4.8); Lymphocytes % 14.4 %; Mean Corpuscular HGB Conc 31.6 g/dL (30-55); Mean Corpuscular Hemoglobin 30.6 pg (27-33); Mean Platelet Volume 10.9 fL (7.4-10.4); Monocytes # 0.6 10^3/uL (0.2-0.9); Monocytes % 6.4 %; Neutrophils # 7.48 10^3/uL (1.8-7.7); Neutrophils % 77.7 %; Nucleated Red Blood Cells % 0 %; Platelet Count 234 10^3/cmm (157-399); Red Blood Count 3.33 10^6/uL (3.85-5.65); Red Cell Distribution Width 13.5 % (12.1-15.1); White Blood Count 9.64 10^3/uL (3.29-11.43)
[2024-10-05 04:26] LABS: Magnesium 1.8 mg/dL (1.7-2.3)
[2024-10-05 04:34] LABS: Alanine Aminotransferase 13 U/L (0-33); Albumin Level 3.1 g/dL (3.5-5.2); Alkaline Phosphatase 112 U/L (35-105); Anion Gap 18.5 (5-19); Aspartate Amino Transferase 18 U/L (0-32); Blood Urea Nitrogen 16 mg/dL (8-23); Calcium 8.7 mg/dL (8.5-10.5); Carbon Dioxide 21 mmol/L (22-29); Chloride 103 mmol/L (98-107); Creatinine Clr Calc Pharmacy 35.1085; Globulin 2.6 g/dL (1.3-4.6); Glucose 77 mg/dL (65-115); Osmolality Calculated 288 mOsm/kg (285-295); Potassium 3.5 mmol/L (3.5-5.1); Sodium 139 mmol/L (136-145); Total Bilirubin 0.3 mg/dL (0.15-1.2); Total Protein 5.7 g/dL (6.6-8.7)
[2024-10-05] MEDS: budesonide 0.5 mg/2 mL Neb 0.25 MG INHALATION ×2 (08:11→20:21)
[2024-10-05] MEDS: ipratropium-albuterol 3 mL Neb INHALATION ×4 (08:11→20:22)
[2024-10-05 08:15] LABS: Glucose Point of Care 102 mg/dL (70-110)
--- NOTE | 2024-10-05 08:32 | XRR_ITS ---
PROCEDURE INFORMATION: Exam: XR Chest Exam date and time: 10/05/2024 8:56 AM Age: 79 years old Clinical indication: Condition or disease; Other: Aspiration pneumonia; Additional info: Asp pna TECHNIQUE: Imaging protocol: Radiologic exam of the chest. Views: 1 view. COMPARISON: CT chest abdpel [id number] 10/03/2024 2:00 PM FINDINGS: Lungs: Pulmonary vessels are within normal limits. No significant change in right pulmonary infiltrates. Left lung is clear. Pleural spaces: No pneumothorax. Heart/Mediastinum: Cardiomediastinal silhouette is within normal limits. Bones/joints: Prior right shoulder surgical changes . XR/XR chest 1V portable [id number] IMPRESSION: No significant change in right pulmonary infiltrates.
[2024-10-05] MEDS: heparin 5,000 unit/mL INJ 1 mL 5000 UNIT SUBCUT ×2 (09:18→19:20)
[2024-10-05] MEDS: pantoprazole 40 mg SDV IVP (09:19)
--- NOTE | 2024-10-05 11:44 | P.PN_ITS ---
Subjective 2 Subjective: Discharge was canceled yesterday as patient had episode of aspiration during breakfast. Patient since then has had further aspirations. Currently on 2 L of oxygen supplementation. Sleeping on examination but wakes up and on waking up is alert and oriented to self only. Vitals/I&O/Wt Last Vital Signs Temp 98.0 F 10/05/24 11:37 Pulse 85 10/05/24 11:37 Resp 18 10/05/24 11:37 BP 170/77 10/05/24 11:37 Pulse Ox 98 10/05/24 11:37 O2 Del Method Nasal Cannula 10/05/24 11:37 O2 Flow Rate 2 10/05/24 11:34 10/04/24 10/05/24 10/05/24 22:59 06:59 14:59 Intake Total 1175 / 1265 50 / 1315 Balance 1175 / 1265 50 / 1315 Weight last 48 hrs Weight 40.324 kg Weight 40.37 kg Physical Exam 2 Narrative: General: No acute distress, alert and oriented to self, date of , HEENT: PERRLA, pupils bilaterally equal and reactive Chest: Bilateral bronchial breath sounds with occasional rhonchi diffusely all over lung vázquez CVS: S1-S2 regular, no murmurs, no tachycardia, no gallops, no rubs Abdomen: Soft, nontender, no organomegaly, bowel sounds present Neuro: No focal deficits, no facial deformity, AO x3, power 5/5 in all limbs Data 10/05/24 02:31 10/05/24 02:31 A&P Assessment and plan (1) Hypoxia: Seems to have resolved now. Appreciate chest x-ray. Could have been in setting of aspiration. Oxygen supplementation keeping saturation over 88%. Pulmicort twice daily, DuoNeb every 6 hour. Speech therapy advance diet accordingly. Check sputum culture. Lower likelihood of pneumonia though patient does have leukocytosis. Check procalcitonin, sputum culture, MRSA swab. Continue with IV Zosyn for now. (2) Aspiration of food: (3) Leukocytosis: Could be in setting of stage II decubitus ulcer. Though does not seem infected. UA normal. Chest x-ray does not seem to have pneumonia though patient did have hypoxia on admission. Will check CT chest abdomen pelvis without contrast. Next antibiotic as above. (4) Mild cognitive impairment with memory loss: (5) Stage II pressure ulcer of right buttock: Will consult wound care nurse for further evaluation and recommendations. Plan CODE STATUS: As per the paperwork from jail DNR/DNI. Advance diet as per speech evaluation Protonix for PUD prophylaxis Heparin for DVT prophylaxis. Plan for the day: Patient continues to have episodes of aspiration. Was seen by speech therapy yesterday who recommended her to remain NPO. Will continue to follow with speech therapy and advance diet accordingly as comfortable and safe. For now continue with IV Zosyn. Follow-up sputum culture results. Continue with D5 NS at 50 cc/h. Oxygen supplementation keeping saturation over 90%. Switch from oral levothyroxine to IV levothyroxine 50 mcg daily. Hold oral medications. Goal blood pressure less than 140/90 mmHg. Blood pressure is elevated. Start on IV hydralazine 10 mg every 6 hours as needed for systolic of more than 160. Care discussed in detail with patient's daughter/DPOA over the phone. As per the daughter patient does not have a DPOA. Legally next of kin is going to be children as patient does not have living . Children will be coming in tomorrow to have further discussions of goals of care. We discussed unfortunately that she has 2 options currently. Option 1 would be for feeding tube. Option 2 would be hospice in which she would continue to eat as comfortable as she can and if and when unfortunately he chokes again or has aspiration goal would be to keep her comfortable while agitated soon course. PDMP PDMP Reviewed: Not Reviewed Attestations 2 Medical Necessity Statement*: Requires further hospitalization for evaluation and management of hypoxia with concerns for aspiration pneumonia due to recurrent aspirations to any consistency of food, leukocytosis, stage II decubitus ulcer Diagnoses Hypoxia R09.02 Aspiration of food T17.928A; W44.F3XA Leukocytosis D72.829 Mild cognitive impairment with memory loss G31.84 Stage II pressure ulcer of right buttock L89.312
[2024-10-05 12:34] LABS: Glucose Point of Care 124 mg/dL (70-110)
[2024-10-05] MEDS: levothyroxine 100 mcg SDV 50 MCG IVP (13:08)
[2024-10-05 16:37] LABS: Glucose Point of Care 129 mg/dL (70-110)
[2024-10-05] MEDS: dextrose 5%-sod chloride 0.9% 1,000 ML 50 ML IV (16:44)
[2024-10-05] MEDS: hyDRALAzine 20 mg/mL INJ 1 mL 10 MG IVP ×2 (19:20→23:26)
[2024-10-05 20:20] LABS: Glucose Point of Care 128 mg/dL (70-110)
[2024-10-05] MEDS: lidocaine 5% Patch 2 PATCH TOPICAL (21:00)
[2024-10-06] VITALS (10 sets, daily range): BP systolic 103–187; BP diastolic 64–93; PULSE 76–97; RESP 15–20; TEMP 36.3–36.6; O2SAT 94–96
[2024-10-06] MEDS: piperacillin-tazobactam 3.375 GM in sodium chloride 0.9% (plus) 50 ML IV ×3 (00:01→15:48)
[2024-10-06 00:05] LABS: Glucose Point of Care 110 mg/dL (70-110)
[2024-10-06] MEDS: ketorolac 30 mg/mL INJ 15 MG IVP (00:15)
[2024-10-06 03:57] LABS: Basophils % 0.4 %; Eosinophils # 0.1 10^3/uL (0.0-0.8); Eosinophils % 0.9 %; Hematocrit 30.5 % (36-47); Lymphocytes # 1.4 10^3/uL (0.8-4.8); Lymphocytes % 18.3 %; Mean Corpuscular HGB Conc 32.1 g/dL (30-55); Mean Corpuscular Hemoglobin 29.7 pg (27-33); Mean Corpuscular Volume 92.4 fl (85-98); Mean Platelet Volume 10.7 fL (7.4-10.4); Monocytes # 0.7 10^3/uL (0.2-0.9); Monocytes % 8.6 %; Neutrophils # 5.55 10^3/uL (1.8-7.7); Neutrophils % 71.3 %; Nucleated Red Blood Cells % 0 %; Platelet Count 237 10^3/cmm (157-399); Red Cell Distribution Width 13.2 % (12.1-15.1); White Blood Count 7.78 10^3/uL (3.29-11.43)
[2024-10-06 04:08] LABS: Alanine Aminotransferase 11 U/L (0-33); Albumin Level 2.8 g/dL (3.5-5.2); Alkaline Phosphatase 78 U/L (35-105); Anion Gap 16.8 (5-19); Aspartate Amino Transferase 13 U/L (0-32); Blood Urea Nitrogen 8 mg/dL (8-23); Calcium 8.7 mg/dL (8.5-10.5); Carbon Dioxide 21 mmol/L (22-29); Chloride 107 mmol/L (98-107); Creatinine Clr Calc Pharmacy 35.1085; Globulin 3.4 g/dL (1.3-4.6); Glucose 110 mg/dL (65-115); Osmolality Calculated 293 mOsm/kg (285-295); Sodium 142 mmol/L (136-145); Total Bilirubin 0.3 mg/dL (0.15-1.2); Total Protein 6.2 g/dL (6.6-8.7)
[2024-10-06 04:13] LABS: Glucose Point of Care 108 mg/dL (70-110)
[2024-10-06 04:20] LABS: Magnesium 1.8 mg/dL (1.7-2.3)
[2024-10-06 04:23] LABS: Potassium 2.8 mmol/L (3.5-5.1)
[2024-10-06] MEDS: lidocaine 1% 5 ML in potassium chloride premix 100 ML 26.25 ML IV (05:41)
[2024-10-06] MEDS: ipratropium-albuterol 3 mL Neb INHALATION ×3 (08:21→20:43)
[2024-10-06] MEDS: budesonide 0.5 mg/2 mL Neb 0.25 MG INHALATION ×2 (08:21→20:42)
--- NOTE | 2024-10-06 08:29 | PC.SOCIAL ---
IMM Update Pg. 2 of IMM updated. Copy provided at bedside.
[2024-10-06 08:32] LABS: Glucose Point of Care 105 mg/dL (70-110)
[2024-10-06] MEDS: levothyroxine 100 mcg SDV 50 MCG IVP (08:47)
[2024-10-06] MEDS: pantoprazole 40 mg SDV IVP (08:47)
[2024-10-06] MEDS: heparin 5,000 unit/mL INJ 1 mL 5000 UNIT SUBCUT ×2 (08:47→20:12)
[2024-10-06] MEDS: cloNIDine 0.2 mg/24 hr Patch 1 PATCH TRANSDERMA (09:37)
[2024-10-06 12:32] LABS: Glucose Point of Care 128 mg/dL (70-110)
[2024-10-06 12:35] LABS: C.Diff PCR (Lab) POSITIVE (Negative)
[2024-10-06 12:36] LABS: Clostridioides Difficile Toxin NEGATIVE (Negative)
--- NOTE | 2024-10-06 12:43 | P.PN_ITS ---
Subjective 2 Subjective: No acute events overnight. Patient has remained hemodynamically stable and afebrile. Remains on baseline mentation. Saturating 94% on 2 L. As per nursing staff having some soft bowel movements. Vitals/I&O/Wt Last Vital Signs Temp 97.9 F 10/06/24 11:11 Pulse 78 10/06/24 11:27 Resp 16 10/06/24 11:27 BP 187/93 10/06/24 11:11 Pulse Ox 94 10/06/24 11:27 O2 Del Method Nasal Cannula 10/06/24 11:27 O2 Flow Rate 2 10/06/24 11:27 10/05/24 10/06/24 10/06/24 22:59 06:59 14:59 Intake Total 1035 / 1085 50 / 1135 105 / 105 Balance 1035 / 1085 50 / 1135 105 / 105 Weight last 48 hrs Weight 41.005 kg Weight 40.324 kg Physical Exam 2 Narrative: General: No acute distress, alert and oriented to self, date of , HEENT: PERRLA, pupils bilaterally equal and reactive Chest: Bilateral bronchial breath sounds with occasional rhonchi diffusely all over lung vázquez CVS: S1-S2 regular, no murmurs, no tachycardia, no gallops, no rubs Abdomen: Soft, nontender, no organomegaly, bowel sounds present Neuro: No focal deficits, no facial deformity, AO x3, power 5/5 in all limbs Data 10/06/24 02:35 10/06/24 02:35 Micro: Microbiology 10/06/24 09:27 Occult Blood (FIT) - Final Stool Routine Collection 10/04/24 19:30 Gram Stain - Final Sputum - Expectorated Sputum A&P Assessment and plan (1) Hypoxia: Seems to have resolved now. Appreciate chest x-ray. Could have been in setting of aspiration. Oxygen supplementation keeping saturation over 88%. Pulmicort twice daily, DuoNeb every 6 hour. Speech therapy advance diet accordingly. Check sputum culture. Lower likelihood of pneumonia though patient does have leukocytosis. Check procalcitonin, sputum culture, MRSA swab. Continue with IV Zosyn for now to finish a 5-day course. (2) Aspiration of food: (3) Leukocytosis: Resolved. Could be in setting of stage II decubitus ulcer. Though does not seem infected. UA normal. Chest x-ray does not seem to have pneumonia though patient did have hypoxia on admission. CT chest abdomen pelvis appreciated. C. difficile PCR positive, toxin negative. As leukocytosis has resolved without treatment for C. difficile less likely active infection. Most likely colonization. Antibiotic as above to finish a 5-day course. (4) Mild cognitive impairment with memory loss: (5) Stage II pressure ulcer of right buttock: Will consult wound care nurse for further evaluation and recommendations. 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 Given the fact that patient is having active diarrhea for now we will treat her as active C. difficile infection. Continue with current IV antibiotics to finish a 5-day course. Will start on vancomycin to 50 mg every 6 hour. Will decide about [place] versus p.o. depending on speech evaluation. Plan Hypertension: Goal blood pressure less than 140/90 mmHg. Blood pressure is elevated. Patient unable to take medications orally. Start on clonidine patch 0.2 mg. Continue with IV hydralazine 10 mg every 6 hours as needed for a systolic of more than 160 mmHg. Hypokalemia: Potassium down to 2.8. Received 80 mg of IV potassium today. Recheck in afternoon. CODE STATUS: As per the paperwork from group home DNR/DNI. Advance diet as per speech evaluation Protonix for PUD prophylaxis Heparin for DVT prophylaxis. Care discussed in detail with patient's daughter/DPOA over the phone. As per the daughter patient does not have a DPOA. Legally next of kin is going to be children as patient does not have living . Children will be coming in tomorrow to have further discussions of goals of care. We discussed unfortunately that she has 2 options currently. Option 1 would be for feeding tube. Option 2 would be hospice in which she would continue to eat as comfortable as she can and if and when unfortunately he chokes again or has aspiration goal would be to keep her comfortable while agitated soon course. PDMP PDMP Reviewed: Not Reviewed Attestations 2 Medical Necessity Statement*: Requires further hospitalization for concern for aspiration pneumonia as patient remains n.p.o., further goals of care discussions are done, hypotension, C. difficile diarrhea, hypokalemia Diagnoses Hypoxia R09.02 Aspiration of food T17.928A; W44.F3XA Leukocytosis D72.829 Mild cognitive impairment with memory loss G31.84 Stage II pressure ulcer of right buttock L89.312 Clostridium difficile carrier Z22.1
[2024-10-06] MEDS: hyDRALAzine 20 mg/mL INJ 1 mL 10 MG IVP (14:01)
[2024-10-06] MEDS: vancomycin 125 mg Capsule 250 MG PO ×2 (15:42→20:12)
[2024-10-06] MEDS: dextrose 5%-sod chloride 0.9% 1,000 ML 50 ML IV (15:42)
[2024-10-06 15:45] LABS: Anion Gap 17.7 (5-19); Blood Urea Nitrogen 7 mg/dL (8-23); Carbon Dioxide 20 mmol/L (22-29); Chloride 109 mmol/L (98-107); Creatinine Clr Calc Pharmacy 35.7014; Glucose 130 mg/dL (65-115); Osmolality Calculated 296 mOsm/kg (285-295); Potassium 3.7 mmol/L (3.5-5.1); Sodium 143 mmol/L (136-145)
[2024-10-06 16:39] LABS: Glucose Point of Care 111 mg/dL (70-110)
[2024-10-06 20:25] LABS: Glucose Point of Care 104 mg/dL (70-110)
[2024-10-06 23:57] LABS: Glucose Point of Care 123 mg/dL (70-110)
[2024-10-07] VITALS (11 sets, daily range): BP systolic 165–185; BP diastolic 83–93; PULSE 79–88; RESP 15–22; TEMP 36.3–36.9; O2SAT 96–100
[2024-10-07] MEDS: piperacillin-tazobactam 3.375 GM in sodium chloride 0.9% (plus) 50 ML IV ×3 (00:15→15:37)
[2024-10-07] MEDS: vancomycin 125 mg Capsule 250 MG PO ×4 (03:15→20:27)
[2024-10-07 05:36] LABS: Alanine Aminotransferase 10 U/L (0-33); Albumin Level 2.6 g/dL (3.5-5.2); Alkaline Phosphatase 65 U/L (35-105); Aspartate Amino Transferase 13 U/L (0-32); Blood Urea Nitrogen 6 mg/dL (8-23); Calcium 8.6 mg/dL (8.5-10.5); Carbon Dioxide 20 mmol/L (22-29); Chloride 110 mmol/L (98-107); Creatinine Clr Calc Pharmacy 35.7014; Globulin 3.3 g/dL (1.3-4.6); Glucose 106 mg/dL (65-115); Osmolality Calculated 288 mOsm/kg (285-295); Sodium 140 mmol/L (136-145); Total Bilirubin 0.2 mg/dL (0.15-1.2); Total Protein 5.9 g/dL (6.6-8.7)
[2024-10-07 05:39] LABS: Basophils % 0.4 %; Eosinophils # 0.1 10^3/uL (0.0-0.8); Eosinophils % 1.3 %; Hematocrit 31.1 % (36-47); Lymphocytes # 1.6 10^3/uL (0.8-4.8); Lymphocytes % 20.9 %; Mean Corpuscular HGB Conc 33.1 g/dL (30-55); Mean Corpuscular Hemoglobin 30.7 pg (27-33); Mean Corpuscular Volume 92.8 fl (85-98); Mean Platelet Volume 10.3 fL (7.4-10.4); Monocytes # 0.6 10^3/uL (0.2-0.9); Monocytes % 8.5 %; Nucleated Red Blood Cells % 0 %; Platelet Count 249 10^3/cmm (157-399); Red Blood Count 3.35 10^6/uL (3.85-5.65); Red Cell Distribution Width 13.4 % (12.1-15.1); White Blood Count 7.51 10^3/uL (3.29-11.43)
[2024-10-07 05:40] LABS: Anion Gap 13.4 (5-19); Potassium 3.4 mmol/L (3.5-5.1)
[2024-10-07 06:34] LABS: Glucose Point of Care 110 mg/dL (70-110)
[2024-10-07] MEDS: dextrose 5%-sod chloride 0.9% 1,000 ML 50 ML IV (07:24)
[2024-10-07] MEDS: levothyroxine 100 mcg SDV 50 MCG IVP (07:25)
[2024-10-07] MEDS: pantoprazole 40 mg SDV IVP (07:26)
[2024-10-07] MEDS: heparin 5,000 unit/mL INJ 1 mL 5000 UNIT SUBCUT ×2 (07:26→17:04)
[2024-10-07] MEDS: fluticasone nasal spray 16gm Btl 1 SPRAY NASAL ×2 (07:27→17:04)
[2024-10-07] MEDS: budesonide 0.5 mg/2 mL Neb 0.25 MG INHALATION ×2 (08:40→20:03)
[2024-10-07] MEDS: ipratropium-albuterol 3 mL Neb INHALATION ×4 (08:41→20:03)
--- NOTE | 2024-10-07 10:39 | PM.PN ---
Subjective Subjective: No acute vents overnight. Patient seems more awake and alert today. Was started on diet as per speech therapy yesterday which she seems to have tolerated well as per nursing staff. Asking to go home. Seen with family at bedside today. Vitals/I&O/Wt Last Vital Signs Temp 97.7 F 10/07/24 07:50 Pulse 85 10/07/24 08:40 Resp 16 10/07/24 08:40 BP 182/92 10/07/24 07:50 Pulse Ox 100 10/07/24 08:40 O2 Del Method Nasal Cannula 10/07/24 08:40 O2 Flow Rate 2 10/07/24 08:40 10/06/24 10/07/24 10/07/24 22:59 06:59 14:59 Intake Total 170 / 1325 50 / 1375 845 / 845 Balance 170 / 1325 50 / 1375 845 / 845 Weight last 48 hrs Weight 41.277 kg Weight 41.005 kg Physical Exam Narrative: General: No acute distress, alert and oriented to self, date of , cachectic, chronically sick appearing HEENT: PERRLA, pupils bilaterally equal and reactive Chest: Bilateral bronchial breath sounds with occasional rhonchi diffusely all over lung vázquez CVS: S1-S2 regular, no murmurs, no tachycardia, no gallops, no rubs Abdomen: Soft, nontender, no organomegaly, bowel sounds present Neuro: No focal deficits, no facial deformity, AO x3, power 5/5 in all limbs Data 10/07/24 04:45 10/07/24 04:45 Micro: Microbiology 10/04/24 19:30 Gram Stain - Final Sputum - Expectorated Sputum Sputum Culture - Final 10/06/24 09:27 Occult Blood (FIT) - Final Stool Routine Collection A&P Assessment and plan (1) Hypoxia: Seems to have resolved now. Appreciate chest x-ray. Could have been in setting of aspiration. Oxygen supplementation keeping saturation over 88%. Pulmicort twice daily, DuoNeb every 6 hour. Speech therapy advance diet accordingly. Check sputum culture. Lower likelihood of pneumonia though patient does have leukocytosis. Check procalcitonin, sputum culture, MRSA swab. Continue with IV Zosyn for now to finish a 5-day course. (2) Aspiration of food: (3) Leukocytosis: Resolved. Could be in setting of stage II decubitus ulcer. Though does not seem infected. UA normal. Chest x-ray does not seem to have pneumonia though patient did have hypoxia on admission. CT chest abdomen pelvis appreciated. C. difficile PCR positive, toxin negative. As leukocytosis has resolved without treatment for C. difficile less likely active infection. Most likely colonization. Antibiotic as above to finish a 5-day course. (4) Mild cognitive impairment with memory loss: (5) Stage II pressure ulcer of right buttock: Will consult wound care nurse for further evaluation and recommendations. 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 Given the fact that patient is having active diarrhea for now we will treat her as active C. difficile infection. Continue with current IV antibiotics to finish a 5-day course. Will start on vancomycin 250 mg every 6 hour. Will decide about [place] versus p.o. depending on speech evaluation. Plan Hypertension: Goal blood pressure less than 140/90 mmHg. Blood pressure is elevated. Patient unable to take medications orally. Start on clonidine patch 0.2 mg. Continue with IV hydralazine 10 mg every 6 hours as needed for a systolic of more than 160 mmHg. Hypokalemia: Potassium down to 2.8. Received 80 mg of IV potassium today. Recheck in afternoon. CODE STATUS: As per the paperwork from [facility] DNR/DNI. Advance diet as per speech evaluation Protonix for PUD prophylaxis Heparin for DVT prophylaxis. Plan for the day: Continue with oral vancomycin 250 mg every 6 hours. Can transition to oral Dificid on discharge. Continue IV Zosyn to finish a 5-day course of pneumonia. For now continue diet as per speech evaluation. Further goals of care discussion done in detail with patient's son and daughter/DPOA at bedside. We discussed patient's waxing and waning mentation given her baseline severe dementia which keeps her at a higher risk of aspiration. Discussed further options of possible transition to hospice versus feeding tube. Family does not want any feeding tube as it is against patient's goal from before. We discussed hospice would mean to continue oral medication and diet as comfortable with the patient and if and when there is a concern for patient getting sick or choking again they will keep her comfortable at [facility] while nature takes its own course. Family verbalizes understanding and are agreeable. Case management alerted. PDMP PDMP Reviewed: Not Reviewed Attestations Medical Necessity Statement*: Requires further hospitalization for management of aspiration pneumonia while diet is advanced as per speech evaluation, C. difficile while hospice is set up as an outpatient at [facility]. Diagnoses Hypoxia R09.02 Aspiration of food T17.928A; W44.F3XA Leukocytosis D72.829 Mild cognitive impairment with memory loss G31.84 Stage II pressure ulcer of right buttock L89.312 Clostridium difficile carrier Z22.1
[2024-10-07 13:45] LABS: Glucose Point of Care 101 mg/dL (70-110)
[2024-10-07 18:18] LABS: Glucose Point of Care 97 mg/dL (70-110)
[2024-10-07 20:51] LABS: Glucose Point of Care 108 mg/dL (70-110)
[2024-10-07 23:37] LABS: Glucose Point of Care 101 mg/dL (70-110)
[2024-10-08] VITALS: BP 172/88; PULSE 88; RESP 16; TEMP 36.7; O2SAT 97
[2024-10-08 04:00] VITALS: BP 171/80; PULSE 78; RESP 17; TEMP 36.7; O2SAT 95
[2024-10-08] MEDS: dextrose 5%-sod chloride 0.9% 1,000 ML 50 ML IV (04:53)
[2024-10-08 06:42] LABS: Glucose Point of Care 96 mg/dL (70-110)
[2024-10-08 07:37] VITALS: BP 197/84; PULSE 74; RESP 20; TEMP 36.3; O2SAT 97
[2024-10-08] MEDS: budesonide 0.5 mg/2 mL Neb 0.25 MG INHALATION (07:51)
[2024-10-08 07:52] VITALS: PULSE 78; RESP 18; O2SAT 98
[2024-10-08] MEDS: ipratropium-albuterol 3 mL Neb INHALATION (07:52)
--- NOTE | 2024-10-08 07:53 | P.DS_ITS ---
Discharge Providers Date of Admission: 10/03/24 03:30 Date of Discharge: October 08, 2024 Attending Provider at Admission: Katlyn Richards MD Attending Provider at Discharge: Judd Victoria MD Primary Care Provider: EDE Hawthorne Diagnoses at Discharge Discharge Diagnosis (1) Hypoxia: Status: Acute (2) Aspiration of food: Status: Acute (3) Leukocytosis: Status: Acute (4) Mild cognitive impairment with memory loss: Status: Acute (5) Stage II pressure ulcer of right buttock: Status: Acute (6) Clostridium difficile carrier: Status: Acute Reason for Visit Reason for Visit: SOB with hypoxemia Brief History: Rosemary Nelson is a 79 year old female who resides at the [facility] was noted to be short of breath. Because of shortness of breath patient was brought to the emergency room. At the emergency room patient was found to be on room air hypoxemia. Patient initially was placed on 3 L of oxygen with a saturation of 92%. Patient is not on any oxygen at home. Clinically patient examination as though she has some adventitious breath sounds on the left lower aspect of the lung with abnormal lung sounds. Chest x-ray were unremarkable. Patient does not appear to be in distress. Empiric antibiotics was initiated in this s etting because of leukocytosis at 13,000 in an 79-year-old female. Upon my evaluation of the patient patient was in the room without her oxygen she had pulled it out and on the screen she was still registering 93% on a practical room air. I placed the 2 L of oxygen on her and she was doing 93 to 95%. Patient has been diagnosed with pneumonia on a clinical ground. With a higher index of suspicion of aspiration for this reason Zosyn was chosen along with azithromycin for atypicals. Hospital Course Hospital Course Patient was admitted to the hospital further evaluation and management with concerns for hypoxia on admission which resolved with nebulization treatment with concerns for aspiration pneumonia mostly because of leukocytosis. CT abdomen pelvis chest was done which showed right-sided pneumonia. She started on broad-spectrum IV antibiotics. She was seen by speech therapy and diet was adjusted accordingly. She did not have any episodes of aspiration during hospitalization and remained on room air. She has finished 5-day course of IV antibiotics for pneumonia. She was being discharged earlier but had another episode of aspiration. She was continued to followed up by speech therapy during hospitalization and was eventually advanced to dysphagia level 4 diet with thickened liquids. Patient's mentation continued to wax and wane. Considering risk of aspiration because of waxing and waning mentation goals of care discussions were done in detail with patient's DPOA/son and daughter at bedside. We discussed options of possible feeding tube versus hospice as patient is at high risk of aspiration given her baseline dementia. Family verbalized understanding and did not want any feeding tube but are okay with advancing diet as per speech and patient being set up of hospice. They understand with hospice if and when patient gets sick again she would be made comfortable at home while nature takes its course and they are agreeable to the same. During hospitalization she was also found to be having C. difficile for which she was started on fidaxomicin. She was found to have elevated blood pressures for which amlodipine, clonidine and hydralazine has been added to her medication list. Physical Exam Narrative: General: No acute distress, alert and oriented to self, date of , cachectic, chronically sick appearing HEENT: PERRLA, pupils bilaterally equal and reactive Chest: Bilateral bronchial breath sounds with occasional rhonchi diffusely all over lung vázquez CVS: S1-S2 regular, no murmurs, no tachycardia, no gallops, no rubs Abdomen: Soft, nontender, no organomegaly, bowel sounds present Neuro: No focal deficits, no facial deformity, AO x3, power 5/5 in all limbs Discharge Data Studies Completed and Pending Completed Studies During Hospitalization Category Date Time Status CT chest abdomen pelvis [[place] [id number] Cat Scan 10/03/24 12:17 Completed ] Routine XR chest 1V portable [id number] Routine Exams 10/05/24 08:32 Completed XR chest 1V portable [id number] Stat Exams 10/02/24 22:06 Completed Pending at discharge Category Date Time Status Sputum Culture and Gram Stain Stat Lab 10/03/24 12:17 Uncollected Radiology Impressions Chest/Abdomen/Pelvis CT 10/03/24 12:17 IMPRESSION: 1. Infiltrates are seen in the right upper lobe, right middle lobe and right lower lobe. Finding could represent multifocal pneumonia. Imaging follow-up until resolution is advised. 2. Cardiomegaly. 3. Mild calcified atherosclerotic changes are seen in the thoracic aorta. IMPRESSION: 1. Descending and sigmoid colon diverticulosis. 2. Mild calcified atherosclerotic changes are seen throughout the abdominal aorta. Chest X-Ray 10/05/24 08:32 IMPRESSION: No significant change in right pulmonary infiltrates. Microbiology 10/04/24 19:30 Sputum - Expectorated Sputum Gram Stain - Final 10/04/24 19:30 Sputum - Expectorated Sputum Sputum Culture - Final 10/06/24 09:27 Stool Routine Collection Occult Blood (FIT) - Final Laboratory Results WBC 7.51 10^3/uL (3.29-11.43) 10/07/24 04:45 RBC 3.35 10^6/uL (3.85-5.65) L 10/07/24 04:45 Hgb 10.30 g/dL (11.27-16.99) L 10/07/24 04:45 Hct 31.1 % (36-47) L 10/07/24 04:45 MCV 92.8 fl (85-98) 10/07/24 04:45 MCH 30.7 pg (27-33) 10/07/24 04:45 MCHC 33.1 g/dL (30-55) 10/07/24 04:45 RDW 13.4 % (12.1-15.1) 10/07/24 04:45 Plt Count 249 10^3/cmm (157-399) 10/07/24 04:45 MPV 10.3 fL (7.4-10.4) 10/07/24 04:45 Neut % (Auto) 68.0 % 10/07/24 04:45 Lymph % (Auto) 20.9 % 10/07/24 04:45 [place] % (Auto) 8.5 % 10/07/24 04:45 Eos % (Auto) 1.3 % 10/07/24 04:45 Baso % (Auto) 0.4 % 10/07/24 04:45 Neut # (Auto) 5.10 10^3/uL (1.8-7.7) 10/07/24 04:45 Lymph # (Auto) 1.6 10^3/uL (0.8-4.8) 10/07/24 04:45 [place] # (Auto) 0.6 10^3/uL (0.2-0.9) 10/07/24 04:45 Eos # (Auto) 0.1 10^3/uL (0.0-0.8) 10/07/24 04:45 Baso # (Auto) 0.0 10^3/uL (0.0-0.1) 10/07/24 04:45 Nucleated RBC % (auto) 0 % 10/07/24 04:45 Nucleated RBCs # 0.0 /100WBC 10/07/24 04:45 Sodium 140 mmol/L (136-145) 10/07/24 04:45 Potassium 3.4 mmol/L (3.5-5.1) L 10/07/24 04:45 Chloride 110 mmol/L (98-107) H 10/07/24 04:45 Carbon Dioxide 20 mmol/L (22-29) L 10/07/24 04:45 Anion Gap 13.4 (5-19) 10/07/24 04:45 BUN 6 mg/dL (8-23) L 10/07/24 04:45 Creatinine 0.6 mg/dL (0.5-0.9) 10/07/24 04:45 GFR Calculation Not Reportable 10/07/24 04:45 Glucose 106 mg/dL (65-115) 10/07/24 04:45 POC Glucose 96 mg/dL (70-110) 10/08/24 06:29 Estimat Average Glucose 105 10/03/24 10:49 Hemoglobin A1c 5.3 % (4.0-6.0) 10/03/24 10:49 Calculated Osmolality 288 mOsm/kg (285-295) 10/07/24 04:45 Lactic Acid 1.2 mmol/L (0.5-2.2) 10/02/24 22:50 Calcium 8.6 mg/dL (8.5-10.5) 10/07/24 04:45 Phosphorus 2.7 mg/dL (2.5-4.5) 10/03/24 10:49 Magnesium 1.8 mg/dL (1.7-2.3) 10/06/24 02:35 Iron 8 ug/dL (37-145) L 10/03/24 10:49 TIBC 181 mcg/dl 10/03/24 10:49 % Saturation 4.4 % (20-50) L 10/03/24 10:49 Unsat Iron Binding 173 ug/dL (112-347) 10/03/24 10:49 Total Bilirubin 0.2 mg/dL (0.15-1.2) 10/07/24 04:45 AST 13 U/L (0-32) 10/07/24 04:45 ALT 10 U/L (0-33) 10/07/24 04:45 Alkaline Phosphatase 65 U/L (35-105) 10/07/24 04:45 Total Protein 5.9 g/dL (6.6-8.7) L 10/07/24 04:45 Albumin 2.6 g/dL (3.5-5.2) L 10/07/24 04:45 Globulin 3.3 g/dL (1.3-4.6) 10/07/24 04:45 Triglycerides 67 mg/dL (0-150) 10/03/24 10:49 Cholesterol 147 mg/dL (0-200) 10/03/24 10:49 LDL Cholesterol, Calc 75 mg/dL (50-129) 10/03/24 10:49 HDL Cholesterol 59 mg/dL (60-100) L 10/03/24 10:49 LDL/HDL Ratio 1.27 RATIO (0.00-3.22) 10/03/24 10:49 Cholesterol/HDL Ratio 2.49 mg/dL (0.0-4.40) 10/03/24 10:49 Vitamin B12 1364 pg/mL (232-1245) H 10/03/24 10:49 Folate 11.0 ng/mL (4.8-37.3) 10/04/24 04:45 Procalcitonin 1.33 ng/mL (0-0.5) H 10/03/24 10:49 TSH 1.87 uIU/mL (0.27-4.20) 10/03/24 10:49 Urine Color Yellow (Yellow) 10/03/24 00:25 Urine Appearance Clear (CLEAR) 10/03/24 00:25 Urine pH 6.0 (5-7) 10/03/24 00:25 Ur Specific Hulbert 1.021 (1.005-1.030) 10/03/24 00:25 Urine Protein Trace (Negative) A 10/03/24 00:25 Urine Glucose (UA) Negative (Normal) 10/03/24 00:25 Urine Ketones Trace (Negative) 10/03/24 00:25 Urine Blood Negative (Negative) 10/03/24 00:25 Urine Nitrate Negative (Negative) 10/03/24 00:25 Urine Bilirubin Negative (Negative) 10/03/24 00:25 Urine Urobilinogen 1.0 mg/dL (Negative) 10/03/24 00:25 Ur Leukocyte Esterase Trace (Negative) A 10/03/24 00:25 Urine RBC 0-2 /hpf (0-2) 10/03/24 00:25 Urine WBC 0-5 /hpf (0-5) 10/03/24 00:25 Ur Squamous Epith Cells 0-5 /hpf (0-5) 10/03/24 00:25 Amorphous Sediment Not Reportable 10/03/24 00:25 Urine Bacteria None seen /hpf (NONE) 10/03/24 00:25 Hyaline Casts 0.81 /lpf 10/03/24 00:25 Nasal MRSA (PCR) Not detected (Not Detecte) 10/03/24 12:25 C. difficile (PCR) Positive (Negative) H 10/06/24 09:27 C.difficile Tox Confrm Negative (Negative) 10/06/24 09:27 Influenza A (PCR) Negative (Negative) 10/02/24 22:29 Influenza Type B (PCR) Negative (Negative) 10/02/24 22:29 RSV (PCR) Negative (Negative) 10/02/24 22:29 SARS-CoV-2 (PCR) Negative (Negative) 10/02/24 22:29 Vitals Last Vital Signs Temp 97.4 F L 10/08/24 07:37 Pulse 74 10/08/24 07:37 Resp 20 H 10/08/24 07:37 BP 197/84 10/08/24 07:37 Pulse Ox 97 10/08/24 07:37 O2 Del Method Nasal Cannula 10/08/24 07:37 O2 Flow Rate 2 10/08/24 06:44 Discharge Plan Discharge Patient Disposition: Hospice - Medical Facility Condition: Stable Prescriptions: New amlodipine 5 mg tablet 5 mg PO DAILY Qty: 30 0RF fidaxomicin 200 mg tablet 200 mg PO BID 10 Days Qty: 20 0RF hydralazine 50 mg tablet 50 mg PO TID Qty: 90 0RF clonidine 0.2 mg/24 hr patch weekly 1 patch transdermal .weekly 28 Days Qty: 4 0RF Continued (DME) lumbar support brace See Rx Instructions .Route .MEDSUPPLY Qty: 1 0RF Rx Instructions: As directed atropine 1 % drops 4 drp sublingual Q4H PRN (Reason: secretions) Qty: 5 0RF Rx Instructions: 4 drops SL q 4 hours PRN for terminal congestion/excessive secretions. bisacodyl 10 mg suppository 10 mg OR DAILY PRN (Reason: constipation) Qty: 5 0RF Rx Instructions: 1 suppository per rectum every day PRN for constipation. diphenhydramine HCl 25 mg tablet 25 mg PO Q4H Qty: 5 0RF Rx Instructions: Take one tablet by mouth every 4 hours as needed for allergic reaction including: Rash and/or Itching hydroxyzine HCl 25 mg tablet 25 mg PO TID PRN (Reason: Itching) Qty: 5 0RF Rx Instructions: Take 1 table by mouth as needed three times a day for itching morphine concentrate 100 mg/5 mL (20 mg/mL) solution 20 mg sublingual DIRECTED PRN (Reason: Pain/SOB) 14 Days Qty: 30 0RF Rx Instructions: 0.25ml-1ml q1H PRN may increase to 0.5ml-1ml Q1H PRN ondansetron 4 mg tablet,disintegrating 4 mg translingual Q4H PRN (Reason: nausea) Qty: 5 0RF Rx Instructions: Dissolve 1 tablet under tongue every 4 hours PRN for nausea lorazepam 2 mg/mL concentrate 2 mg sublingual Q4H PRN (Reason: Anxiety/Seizure) Qty: 30 0RF Rx Instructions: 0.25ml-1ml q4H PRN Anxiety/Seizure Start 0.25ml may increase to 0.5ml-1ml q4H acetaminophen 500 mg Tablet 1,000 mg PO Q8H PRN (Reason: Pain) polyethylene glycol 3350 [Miralax] 17 gram Powder In Packet 17 g PO DAILY PRN (Reason: Constipation) sertraline 100 mg Tablet 100 mg PO BEDTIME naphazoline 0.012 % Drops 1 drp OPHTHALMIC (EYE) Q12H PRN (Reason: Dry Eye(S)) tramadol 50 mg Tablet 50 mg PO Q6H levothyroxine 75 mcg Tablet 75 mcg PO DAILY famotidine 20 mg Tablet 20 mg PO BEDTIME magnesium hydroxide [Milk of Magnesia] 400 mg/5 mL Suspension 30 ml PO DAILY PRN (Reason: Constipation) bisacodyl 10 mg Suppository 10 mg OR DAILY PRN (Reason: Constipation) calcium carbonate [Tums] 200 mg calcium (500 mg) Tablet,Chewable 500 mg PO Q4-5H PRN (Reason: Acid Reflux) Fleet Enema 19-7 gram/118 mL Enema 118 ml OR DAILY PRN (Reason: Constipation) docusate sodium 100 mg Capsule 100 mg PO BID magnesium citrate Solution 296 ml PO DAILY PRN (Reason: Constipation) Biofreeze (menthol) 4 % Gel 1 applic TOPICAL Q8H PRN (Reason: Muscle Pain) Rx Instructions: apply to lower back Discharge Orders: Discharge Order (Routine); Ordered 10/08/24 Ordered By: Judd Victoria Referrals: [facility] [Outside] [facility] ([facility]) [Outside] Trenton Mckeon FNP [Primary Care Provider, Family Practice] Discharge Diet: As Directed Discharge Activity: Resume usual activity and Increase activity as tolerated Patient Instructions: Amlodipine (By mouth), Hospice Care (GEN), Aspiration Pneumonia (GEN), Pneumonia Stoplight Activity Restrictions/Additional Instructions: Hospice. Dysphagia level 4 thickened pur?ed diet. Fidoxamycin possibly for next 10 days. Antihypertensives have been changed. Add clonidine patch and hydralazine 3 times a day.. Discharge Attestations Time Spent in Discharge Care*: greater than 30 min Specific Discharge Activities: educating patient, educating and/or supporting family/caregiver, discussing with pcp/other providers, discussing with telehealth case manager/social workers/dc planners, documenting/other paperwork and evaluating patient/reviewing data Status at Discharge: Cognitive status at discharge: moderately impaired cognition , Behavioral status at discharge: cooperative , Functional status at discharge: uses cane/walker , Overall status at discharge: patient is back to baseline Quality Metrics Clinical Quality Measures [ No reported AMI, CVA or VTE this stay] Coding Level of Care Code 06419 Total time (in minutes) for Discharge: 65 Diagnoses Hypoxia R09.02 Aspiration of food T17.928A; W44.F3XA Leukocytosis D72.829 Mild cognitive impairment with memory loss G31.84 Stage II pressure ulcer of right buttock L89.312 Clostridium difficile carrier Z22.1
[2024-10-08] MEDS: pantoprazole 40 mg SDV IVP (09:38)
[2024-10-08] MEDS: fluticasone nasal spray 16gm Btl 1 SPRAY NASAL (09:39)
[2024-10-08] MEDS: heparin 5,000 unit/mL INJ 1 mL 5000 UNIT SUBCUT (09:39)
[2024-10-08] MEDS: vancomycin 125 mg Capsule 250 MG PO (09:39)
[2024-10-08] MEDS: levothyroxine 100 mcg SDV 50 MCG IVP (09:39)
--- NOTE | 2024-10-08 09:52 | PC.SOCIAL ---
IMM Update pg 2 of IMM Updated and reviewed w/ patient. Copy provided and copy dated, initialed and placed in chart.
--- NOTE | 2024-10-08 09:58 | PC.NURSE ---
Report called to Jhonny YANEZ at [facility] [place], [place].
--- NOTE | 2024-10-08 10:21 | PC.NURSE ---
Pt states she feels like she can't urinate. Bladder scan shows residual of 700ml urine. Dr. Victoria advised. New order received to place pressley and send pt with pressley to [facility]. Jhonny at [facility] updated.
[2024-10-08 10:37] VITALS: BP 197/84; PULSE 74; RESP 20; TEMP 36.3; O2SAT 97
--- NOTE | 2024-10-08 10:38 | PC.NURSE ---
Dr. Victoria aware of BP of 197/84 this am. Clonidine patch right posterior shoulder in place. OK with DC to SNF at this time.
== END 2024-10-08 10:40 | disposition hospice, home (50) | DRG 178 ==
LOC: ER 10-03 03:30 → MEDSURG 10-03 03:43
PROVIDERS: Nurse Practitioner; Admitting Provider Internal Medicine; Emergency Provider General Practice; PCP Registered Nurse; Visit Provider Student in an Organized Health Care Education/Training Program
DX: J69.0 Pneumonitis due to inhalation of food and vomit (principal); A04.72 Enterocolitis due to Clostridium difficile, not specified as recurrent; J44.1 Chronic obstructive pulmonary disease with (acute) exacerbation; F03.90 Unspecified dementia, unspecified severity, without behavioral disturbance, psychotic disturbance, mood disturbance, and anxiety; L89.312 Pressure ulcer of right buttock, stage 2; R09.02 Hypoxemia; Z79.891 Long term (current) use of opiate analgesic; G62.9 Polyneuropathy, unspecified; M10.9 Gout, unspecified; H81.09 Meniere's disease, unspecified ear; E03.9 Hypothyroidism, unspecified; I10 Essential (primary) hypertension; M85.80 Other specified disorders of bone density and structure, unspecified site; E78.5 Hyperlipidemia, unspecified; G43.909 Migraine, unspecified, not intractable, without status migrainosus; Z79.51 Long term (current) use of inhaled steroids; Z66 Do not resuscitate; E06.3 Autoimmune thyroiditis
CPT/HCPCS: 36415; 36416; 51702; 71045; 71250; 74176; 80048; 80053; 80061; 81001; 82274; 82607; 82746; 82962; 83036; 83540; 83550; 83605; 83735; 84100; 84145; 84443; 85025; 87070; 87205; 87324; 87493; 87637; 92523; 92526; 92610; 93005; 94640; 96365; 96367; 96372; 99285; J0360; J0456; J1644; J1885; J2470; J2543; J3480; J3490; J7030; J7042; J7050; J7626; J7799; J9999; Q0144